=== PATIENT | female | born 1950 | race Two or more races ===

== ENCOUNTER 2022-03-18 14:17 | Emergency (ER) | payer OTHER ==
[~2022-03-18] VITALS: Ht 157.5 cm; Wt 62.0 kg
[2022-03-18 15:26] VITALS: BP 141/83
[2022-03-18] MEDS ORDERED: TETANUS-DIPTH-ACEL PERTUSSIS 0.5ML SYR Tdap IM ONE (15:30)
[2022-03-18] MEDS ORDERED: CEFD300C2 PO (16:01)
[2022-03-18] MEDS ORDERED: LIDOCAINE 2%HCL (LOCAL ANESTH.) INJ 10ml MDV IJ ONE (16:15)
== END 2022-03-18 16:48 | disposition home or self-care (01) ==
LOC: ER 14:22
DX: S91.311A Laceration without foreign body, right foot, initial encounter (principal); M19.90 Unspecified osteoarthritis, unspecified site; I10 Essential (primary) hypertension; Z90.49 Acquired absence of other specified parts of digestive tract; W26.0XXA Contact with knife, initial encounter; Y93.89 Activity, other specified; Y92.89 Other specified places as the place of occurrence of the external cause; Y99.8 Other external cause status
CPT/HCPCS: 12001; 90471; 90715

== ENCOUNTER → 2022-04-09 | Outpatient (CLI) | payer OTHER ==
[~2022-04-09] MED LIST: CEFD300C2 PO
[2022-04-09 14:26] LABS: Basophils # (auto) 0 10 ^3/uL (0-0.2); Basophils % (auto) 0.4 % (0.0-2.0); Eosinophils # (auto) 0.1 10 ^3/uL (0-0.8); Eosinophils % (auto) 2.1 % (0.0-7.0); Hematocrit 31.3 % (36.0-46.0); Hemoglobin 10.9 g/dL (12.2-16.2); Lymphocytes # (auto) 0.4 10 ^3/uL (0.4-5.4); Lymphocytes % (auto) 11.8 % (10.0-50.0); Mean Corpuscular Hemoglobin 31.4 pg (28.0-32.0); Mean Corpuscular Hgb Conc. 34.8 g/dL (32.0-36.0); Mean Corpuscular Volume 90.2 fL (80.0-100.0); Monocytes # (auto) 0.4 10 ^3/uL (0-1.3); Monocytes % (auto) 10.6 % (0.0-12.0); Neutrophils # (auto) 2.6 10 ^3/uL (1.6-8.6); Neutrophils % (auto) 75.1 % (37.0-80.0); Nucleated Red Blood Cells % 0.1 %; Red Blood Cells 3.47 10^6/uL (4.0-5.20); Red Cell Distribution Width 14.5 % (11.8-14.3); White Blood Cell 3.4 10^3/uL (4.4-10.8)
[2022-04-09 14:43] LABS: INR 1.03 (0.9-1.15)
[2022-04-09 15:24] LABS: Albumin 3.5 g/dL (3.4-5.0); Calcium 9.3 mg/dL (8.5-10.1); Potassium 4.1 mmol/L (3.5-5.1)
[2022-04-09 15:28] LABS: BUN/Creatinine Ratio 29.5; Bilirubin, Total 0.9 mg/dL (0.2-1.0); Total Protein 7.4 g/dL (6.4-8.2)
== END | disposition home or self-care (01) ==
LOC: LAB 14:07
PROVIDERS: ATTEND Internal Medicine Gastroenterology
DX: K74.60 Unspecified cirrhosis of liver (principal); K76.6 Portal hypertension
CPT/HCPCS: 36415; 80053; 82105; 85025; 85610

== ENCOUNTER → 2022-08-06 | Outpatient (CLI) | payer OTHER ==
[2022-08-06 14:32] LABS: Basophils # (auto) 0 10 ^3/uL (0-0.2); Basophils % (auto) 0.4 % (0.0-2.0); Eosinophils # (auto) 0.1 10 ^3/uL (0-0.8); Eosinophils % (auto) 2.1 % (0.0-7.0); Hemoglobin 11.5 g/dL (12.2-16.2); Lymphocytes # (auto) 0.7 10 ^3/uL (0.4-5.4); Lymphocytes % (auto) 20.8 % (10.0-50.0); Mean Corpuscular Hemoglobin 30.6 pg (28.0-32.0); Mean Corpuscular Hgb Conc. 34.7 g/dL (32.0-36.0); Monocytes # (auto) 0.4 10 ^3/uL (0-1.3); Monocytes % (auto) 11.4 % (0.0-12.0); Neutrophils # (auto) 2.3 10 ^3/uL (1.6-8.6); Neutrophils % (auto) 65.3 % (37.0-80.0); Nucleated Red Blood Cells % 0.1 %; Red Blood Cells 3.75 10^6/uL (4.0-5.20); White Blood Cell 3.5 10^3/uL (4.4-10.8)
[2022-08-06 14:49] LABS: INR 1.01 (0.9-1.15)
[2022-08-06 15:18] LABS: Calcium 9.1 mg/dL (8.5-10.1); Potassium 3.8 mmol/L (3.5-5.1)
[2022-08-06 15:24] LABS: Albumin 3.4 g/dL (3.4-5.0); Bilirubin, Total 0.8 mg/dL (0.2-1.0); Total Protein 7.4 g/dL (6.4-8.2)
== END | disposition home or self-care (01) ==
LOC: LAB 13:55
PROVIDERS: ATTEND Nurse Practitioner
DX: K74.69 Other cirrhosis of liver (principal); B19.20 Unspecified viral hepatitis C without hepatic coma
CPT/HCPCS: 36415; 80053; 82105; 85025; 85610

== ENCOUNTER → 2023-11-19 | Outpatient (CLI) | payer MEDICAID ==
[2023-11-19 08:36] LABS: Anion Gap 5 (5-15); Carbon Dioxide 27 mmol/L (20-30); Chloride 101 mmol/L (98-107); Sodium 133 mmol/L (136-145)
[2023-11-19 08:38] LABS: Calcium 9.8 mg/dL (8.7-10.4)
[2023-11-19 08:42] LABS: Glucose 86 mg/dL (74-106)
[2023-11-19 08:43] LABS: BUN/Creatinine Ratio 24.1 (10.0-20.0); Blood Urea Nitrogen 14 mg/dL (9-23)
== END | disposition home or self-care (01) ==
LOC: LAB 07:33
PROVIDERS: ATTEND Internal Medicine
DX: C22.0 Liver cell carcinoma (principal)
CPT/HCPCS: 36415; 80048

== ENCOUNTER 2023-12-18 12:03 | Inpatient (IN) | payer MEDICAID, OTHER ==
[~2023-12-18] VITALS: Ht 157.5 cm; Wt 58.3 kg
[2023-12-18] MEDS: METOCLOPRAMIDE HCL 5MG/ml INJ 2ml VIAL IV ONE (16:27)
[2023-12-18] MEDS: SODIUM CHLORIDE 0.9% 1,000 ML IV ONE (16:27)
[2023-12-18] MEDS: MORPHINE SULFATE 4 MG/ML SYR/VIAL IV ONE (16:29)
[2023-12-18 16:35] VITALS: O2SAT 95
[2023-12-18 17:25] LABS: Alanine Aminotransferase 38 U/L (7-40); Alkaline Phosphatase 153 U/L (46-116); Anion Gap 4 (5-15); Aspartate Aminotransferase 59 U/L (13-40); Blood Urea Nitrogen 11 mg/dL (9-23); Calcium 9.9 mg/dL (8.7-10.4); Carbon Dioxide 28 mmol/L (20-30); Chloride 103 mmol/L (98-107); Glucose 102 mg/dL (74-106); Lipase 35 U/L (12-53); Magnesium 1.5 mg/dL (1.6-2.6); Potassium 4.4 mmol/L (3.5-5.1); Sodium 135 mmol/L (136-145)
[2023-12-18 17:26] LABS: Bilirubin, Total 1.7 mg/dL (0.2-1.0); Total Protein 7.6 g/dL (5.7-8.2)
[2023-12-18 17:28] LABS: Basophils # (auto) 0 10 ^3/uL (0-0.2); Basophils % (auto) 0.3 % (0.0-2.0); Eosinophils # (auto) 0 10 ^3/uL (0-0.8); Eosinophils % (auto) 0.7 % (0.0-7.0); Hematocrit 33.5 % (36.0-46.0); Hemoglobin 11.7 g/dL (12.2-16.2); Lymphocytes # (auto) 0.6 10 ^3/uL (0.4-5.4); Mean Corpuscular Hemoglobin 30.3 pg (28.0-32.0); Mean Corpuscular Hgb Conc. 34.9 g/dL (32.0-36.0); Mean Corpuscular Volume 86.9 fL (80.0-100.0); Monocytes # (auto) 0.2 10 ^3/uL (0-1.3); Monocytes % (auto) 3.9 % (0.0-12.0); Neutrophils # (auto) 4.4 10 ^3/uL (1.6-8.6); Neutrophils % (auto) 83.1 % (37.0-80.0); Nucleated Red Blood Cells % 0.1 %; Platelet Count (auto) 383 10^3/uL (140-450); Red Blood Cells 3.86 10^6/uL (4.0-5.20); Red Cell Distribution Width 16.5 % (11.8-14.3); White Blood Cell 5.3 10^3/uL (4.4-10.8)
[2023-12-18 19:01] LABS: Albumin 3.6 g/dL (3.2-4.8)
[2023-12-18 19:03] LABS: Urine Bacteria None Seen /hpf (None Seen)
[2023-12-18 19:19] LABS: Urine Blood Negative /uL (Negative); Urine Clarity Clear (Clear); Urine Color Light-Yellow (Yellow); Urine Protein, UAD Negative (Negative); Urine Specific Gravity 1.009 (1.001-1.035); Urine Urobilinogen Normal (Negative); Urine WBC 1 /hpf (0 - 5)
[2023-12-18] MEDS ORDERED: ONDANSETRON HCL 4 MG/2 ML VIAL IV PRN (21:45)
[2023-12-18] MEDS ORDERED: HYDROcodone-ACET 5/325MG TAB PO PRN (21:45)
[2023-12-18] MEDS ORDERED: ACETAMINOPHEN 325 MG TAB PO PRN (21:45)
[2023-12-18] MEDS ORDERED: TEMAZEPAM 15 MG CAP PO PRN (21:45)
[2023-12-18] MEDS ORDERED: MORPHINE SULFATE INJ 2 MG/ml SYRG IV PRN (21:45)
[2023-12-18] MEDS: PANTOPRAZOLE 40 MG TAB PO ONE (21:49)
[2023-12-18] MEDS: MAGNESIUM SULFATE 1GM/100ML 100 ML IV SCH (21:53)
[2023-12-18 23:26] VITALS: BP 138/71; PULSE 67; RESP 21; TEMP 97.6; O2SAT 94
[2023-12-19] VITALS (7 sets, daily range): BP systolic 133–142; BP diastolic 66–83; PULSE 53–94; RESP 17–22; TEMP 97.6–98.1; O2SAT 94–97
[2023-12-19] MEDS ORDERED: PROP60CA34 PO (04:09)
[2023-12-19] MEDS ORDERED: APIX5TAB PO (04:09)
[2023-12-19] MEDS ORDERED: PRED10TA PO (04:09)
[2023-12-19] MEDS: PANTOPRAZOLE 40 MG TAB PO SCH (05:24)
[2023-12-19 05:57] LABS: Basophils # (auto) 0 10 ^3/uL (0-0.2); Basophils % (auto) 0.2 % (0.0-2.0); Eosinophils # (auto) 0.1 10 ^3/uL (0-0.8); Eosinophils % (auto) 3.7 % (0.0-7.0); Hematocrit 32.6 % (36.0-46.0); Hemoglobin 11.4 g/dL (12.2-16.2); Lymphocytes # (auto) 0.6 10 ^3/uL (0.4-5.4); Lymphocytes % (auto) 15.7 % (10.0-50.0); Mean Corpuscular Hemoglobin 30.4 pg (28.0-32.0); Mean Corpuscular Hgb Conc. 35.1 g/dL (32.0-36.0); Mean Corpuscular Volume 86.8 fL (80.0-100.0); Monocytes # (auto) 0.3 10 ^3/uL (0-1.3); Neutrophils # (auto) 2.6 10 ^3/uL (1.6-8.6); Neutrophils % (auto) 72.4 % (37.0-80.0); Nucleated Red Blood Cells % 0.9 %; Platelet Count (auto) 296 10^3/uL (140-450); Red Blood Cells 3.76 10^6/uL (4.0-5.20); Red Cell Distribution Width 16.4 % (11.8-14.3); White Blood Cell 3.6 10^3/uL (4.4-10.8)
[2023-12-19 06:21] LABS: Alanine Aminotransferase 30 U/L (7-40); Albumin 3.2 g/dL (3.2-4.8); Alkaline Phosphatase 137 U/L (46-116); Anion Gap 4 (5-15); Aspartate Aminotransferase 52 U/L (13-40); BUN/Creatinine Ratio 22.4 (10.0-20.0); Bilirubin, Total 1.5 mg/dL (0.2-1.0); Blood Urea Nitrogen 13 mg/dL (9-23); Calcium 9.4 mg/dL (8.7-10.4); Carbon Dioxide 28 mmol/L (20-30); Chloride 103 mmol/L (98-107); Glucose 73 mg/dL (74-106); Potassium 3.9 mmol/L (3.5-5.1); Sodium 135 mmol/L (136-145); Total Protein 6.6 g/dL (5.7-8.2)
[2023-12-19] MEDS: LISINOPRIL 20 MG TAB PO SCH (09:47)
[2023-12-19] MEDS ORDERED: PROPRANOLOL HCL 20 MG PO SCH (10:00)
[2023-12-19] MEDS: APIXABAN 5 MG TAB PO SCH (13:17)
[2023-12-19] MEDS: PROPRANOLOL HCL 20 MG PO SCH (13:18)
[2023-12-19] MEDS: metroNIDAZOLE 500 MG TAB PO ONE (13:54)
[2023-12-19] MEDS: GOLYTELY 4L KIT PO ONE (13:54)
[2023-12-19 15:41] LABS: INR 1.13 (0.9-1.15); Prothrombin Time 11.9 sec (9.3-11.8)
[2023-12-19] MEDS: CIPROFLOXACIN HCL 500 MG TAB PO SCH (21:25)
[2023-12-19] MEDS: metroNIDAZOLE 500 MG TAB PO SCH (21:25)
[2023-12-20] VITALS (9 sets, daily range): BP systolic 111–135; BP diastolic 64–86; PULSE 65–87; RESP 16–21; TEMP 97.9–98.7; O2SAT 93–100
[2023-12-20 06:07] LABS: Basophils # (auto) 0 10 ^3/uL (0-0.2); Basophils % (auto) 0.2 % (0.0-2.0); Eosinophils # (auto) 0.1 10 ^3/uL (0-0.8); Eosinophils % (auto) 3.2 % (0.0-7.0); Hematocrit 30.9 % (36.0-46.0); Hemoglobin 10.8 g/dL (12.2-16.2); Lymphocytes # (auto) 0.4 10 ^3/uL (0.4-5.4); Lymphocytes % (auto) 12.7 % (10.0-50.0); Mean Corpuscular Hemoglobin 30.6 pg (28.0-32.0); Mean Corpuscular Hgb Conc. 34.8 g/dL (32.0-36.0); Mean Corpuscular Volume 87.7 fL (80.0-100.0); Monocytes # (auto) 0.3 10 ^3/uL (0-1.3); Monocytes % (auto) 7.5 % (0.0-12.0); Neutrophils # (auto) 2.7 10 ^3/uL (1.6-8.6); Neutrophils % (auto) 76.4 % (37.0-80.0); Nucleated Red Blood Cells % 0.1 %; Platelet Count (auto) 290 10^3/uL (140-450); Red Blood Cells 3.52 10^6/uL (4.0-5.20); Red Cell Distribution Width 16.7 % (11.8-14.3); White Blood Cell 3.5 10^3/uL (4.4-10.8)
[2023-12-20] MEDS: MAGNESIUM CITRATE SOLUTION 300 ML BTL PO ONE (06:08)
[2023-12-20] MEDS: GOLYTELY 4L KIT PO ONE (06:09)
[2023-12-20 06:17] LABS: Calcium 9.6 mg/dL (8.7-10.4); Chloride 104 mmol/L (98-107); Potassium 3.5 mmol/L (3.5-5.1); Sodium 136 mmol/L (136-145)
[2023-12-20 06:18] LABS: Anion Gap 3 (5-15); Carbon Dioxide 29 mmol/L (20-30)
[2023-12-20 06:23] LABS: BUN/Creatinine Ratio 21.1 (10.0-20.0); Blood Urea Nitrogen 12 mg/dL (9-23); Glucose 76 mg/dL (74-106)
[2023-12-20] MEDS ORDERED: SODIUM CHLORIDE LOCK 10 ML ONE (08:35)
[2023-12-20] MEDS ORDERED: levoFLOXacin 500MG 100 ML IV SCH (10:00)
[2023-12-20] MEDS: MIDAZOLAM HCL 5 MG/ML-1ML VIAL ONE (15:09)
[2023-12-20] MEDS: fentaNYL CITRATE 100 MCG/2 ML VL ONE (15:09)
[2023-12-20] MEDS: diphenhdrAMINE HCL 50 MG/1 ML VL ONE (15:09)
[2023-12-21 01:00] VITALS: BP 121/57; PULSE 81; RESP 18; TEMP 97.6; O2SAT 18
[2023-12-21 05:57] LABS: Basophils # (auto) 0 10 ^3/uL (0-0.2); Basophils % (auto) 0.2 % (0.0-2.0); Eosinophils # (auto) 0.1 10 ^3/uL (0-0.8); Eosinophils % (auto) 3.2 % (0.0-7.0); Hematocrit 28.9 % (36.0-46.0); Hemoglobin 10.1 g/dL (12.2-16.2); Lymphocytes # (auto) 0.5 10 ^3/uL (0.4-5.4); Lymphocytes % (auto) 13.8 % (10.0-50.0); Mean Corpuscular Hemoglobin 30.9 pg (28.0-32.0); Mean Corpuscular Hgb Conc. 35.1 g/dL (32.0-36.0); Monocytes # (auto) 0.4 10 ^3/uL (0-1.3); Monocytes % (auto) 9.9 % (0.0-12.0); Neutrophils # (auto) 2.7 10 ^3/uL (1.6-8.6); Neutrophils % (auto) 72.9 % (37.0-80.0); Platelet Count (auto) 296 10^3/uL (140-450); Red Blood Cells 3.28 10^6/uL (4.0-5.20); Red Cell Distribution Width 16.4 % (11.8-14.3); White Blood Cell 3.7 10^3/uL (4.4-10.8)
[2023-12-21 06:23] LABS: Alanine Aminotransferase 28 U/L (7-40); Alkaline Phosphatase 126 U/L (46-116); Anion Gap 4 (5-15); Calcium 9.1 mg/dL (8.7-10.4); Carbon Dioxide 25 mmol/L (20-30); Chloride 108 mmol/L (98-107); Glucose 93 mg/dL (74-106); Potassium 3.6 mmol/L (3.5-5.1); Sodium 137 mmol/L (136-145)
[2023-12-21 06:24] LABS: Aspartate Aminotransferase 58 U/L (13-40); BUN/Creatinine Ratio 32.8 (10.0-20.0); Bilirubin, Direct 0.5 mg/dL (<0.3); Blood Urea Nitrogen 19 mg/dL (9-23)
[2023-12-21 06:25] LABS: Total Protein 6.2 g/dL (5.7-8.2)
[2023-12-21 06:29] VITALS: BP 147/79; PULSE 74; RESP 21; TEMP 98; O2SAT 97
[2023-12-21 08:59] VITALS: BP 133/68; PULSE 75; RESP 17; TEMP 98.1; O2SAT 97
[2023-12-21 12:30] VITALS: BP 118/64; PULSE 75; RESP 17; TEMP 98.2; O2SAT 98
[2023-12-21 12:56] VITALS: BP 118/64; PULSE 75; RESP 17; TEMP 98.2; O2SAT 98
[2023-12-21 16:44] VITALS: BP 150/80; PULSE 77; RESP 17; TEMP 97.8; O2SAT 98
== END 2023-12-21 18:00 | disposition home or self-care (01) | DRG 392 ==
LOC: ER 12:03 → WEST WING 21:39 → OVERFLOW 21:39 → WEST WING 23:26
PROVIDERS: ADMIT Internal Medicine; ATTEND Internal Medicine
PROC: 0DBL8ZX Excision of Transverse Colon, Via Natural or Artificial Opening Endoscopic, Diagnostic (ICD-10-PCS; 2023-12-20)
PROC: 0DBN8ZX Excision of Sigmoid Colon, Via Natural or Artificial Opening Endoscopic, Diagnostic (ICD-10-PCS; principal; 2023-12-20 15:07)
DX: K52.9 Noninfective gastroenteritis and colitis, unspecified (principal); C22.9 Malignant neoplasm of liver, not specified as primary or secondary; J47.9 Bronchiectasis, uncomplicated; E27.8 Other specified disorders of adrenal gland; E83.42 Hypomagnesemia; I10 Essential (primary) hypertension; K74.60 Unspecified cirrhosis of liver; N20.0 Calculus of kidney; K63.5 Polyp of colon; K64.8 Other hemorrhoids; Z85.05 Personal history of malignant neoplasm of liver; Z79.899 Other long term (current) drug therapy; M19.90 Unspecified osteoarthritis, unspecified site
CPT/HCPCS: 36415; 45380; 71046; 74176; 80048; 80053; 80076; 81001; 82306; 82607; 83036; 83690; 83735; 84443; 85025; 85610; 86850; 86900; 86901; 93005; 96365; 96375; G0378; J2250

== ENCOUNTER 2024-03-24 10:40 | Emergency (ER) | payer MEDICAID ==
[~2024-03-24] VITALS: Ht 157.5 cm; Wt 56.4 kg
[~2024-03-24 10:40] MED LIST changes: +APIX5TAB PO; +PRED10TA PO; +PROP60CA34 PO
[2024-03-24] MEDS ORDERED: DIPH2.5T73 PO (11:46)
--- NOTE | 2024-03-24 11:52 | ED.PDOC ---
GI ASSESSMENT HPI Comments 73 y/o female patient presents to the ER for diarrhea. Patient reports she was diagnosed with COVID yesterday and started taking Paxlovid. Patient reports that she has had about 2-3 episodes of diarrhea. Patient reports that it is causing her difficulty with sleeping at night. Patient has tried taking Imodium without relief. Chief Complaint: Diarrhea Time Seen by MD: 11:18 Primary Care Provider: CYNDI Allergies: Coded Allergies: NO KNOWN ALLERGIES (Unverified , 03/18/22) Home Meds Active Scripts Loperamide-Simethicone (Imodium Multi-Symptom Rel) Relief Tab, 2 TAB OR UD for 3 Days, #12 TAB 0 Refills Prov:CM LUGO 03/24/24 Cefdinir (Cefdinir) 300 Mg Cap, 1 CAP PO BID for 7 Days, #14 CAP Prov:MARVIN JOHNSTON MD 03/18/22 Reported Medications Prednisone (Prednisone) 10 Mg Tab, 10 MG PO, MG 12/19/23 Apixaban Base (ELIQUIS) 5 Mg Tab, 5 MG PO BID, TAB 12/19/23 Propranolol Hcl (Inderal La) 60 Mg Cap, 20 MG PO BID, CAP 12/19/23 Information Source: Patient Mode of Arrival: Ambulatory Past Medical History PAST MEDICAL HISTORY: Arthritis, Cancer, HTN, Liver Surgical History: BTL, Cholecystectomy 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 Hx Family History Family History: Reviewed,noncontributory to illness Social History Smoker: Non-Smoker Alcohol: Denies ETOH Use Drugs: Denies Drug Use Lives In: Home Constitutional: denies: chills, diaphoresis, fatigue, fever, malaise, sweats, weakness, others EENTM: denies: blurred vision, double vision, ear bleeding, ear discharge, ear drainage, ear pain, ear ringing, eye pain, eye redness, hearing loss, mouth pain, mouth swelling, nasal discharge, nose bleeding, nose congestion, nose pain, photophobia, tearing, throat pain, throat swelling, voice changes, others Respiratory: denies: cough, hemoptysis, orthopnea, SOB at rest, shortness of breath, SOB with excertion, stridor, wheezing, others Cardiovascular: denies: chest pain, dizzy spells, diaphoresis, Dyspnea on exertion, edema, irregular heart beat, left arm pain, lightheadedness, palpitations, PND, syncope, others Gastrointestinal: reports: diarrhea Genitourinary: denies: abnormal vagina bleeding, burning, dyspareunia, dysuria, flank pain, frequency, hematuria, incontinence, pain, , vagina discharge, urgency, others Neurological: denies: dizziness, fainting, headache, left sided numbness, left sided weakness, numbness, paresthesia, pre-existing deficit, right sided n umbness, right sided weakness, seizure, speech problems, tingling, tremors, weakness, others Musculoskeletal: denies: back pain, gout, joint pain, joint swelling, muscle pain, muscle stiffness, neck pain, others Integumetry: denies: bruises, change in color, change in hair/nails, dryness, laceration, lesions, lumps, rash, wounds, others Allergic/Immunocompromised: denies: Difficulty Healing, Frequent Infections, Hives, Itching, others Hematologic/Lymphatic: denies: anemia, blood clots, easy bleeding, easy bruising, swollen glands, others Endocrine: denies: excessive hunger, excessive sweating, excessive thirst, excessive urination, flushing, intolerance to cold, intolerance to heat, unexplained weight gain, unexplained weight loss, others Psychiatric: denies: anxiety, bipolar disorder, depression, hopeless, panic disorder, schizophrenia, sleepless, suicidal, others All Other Systems: Reviewed and Negative Physical Exam General Appearance: No Apparent Distress, Normal HEENT: Normal ENT Inspection, Pharynx Normal, TMs Normal Neck: Full Range of Motion, Non-Tender, Normal, Normal Inspection Respiratory: Chest Non-Tender, Lungs Clear, No Accessory Muscle Use, No Respiratory Distress, Normal Breath Sounds Cardiovascular: No Edema, No JVD, No Murmur, No Gallop, Normal Peripheral Pulses, Regular Rate/Rhythm Breast Exam: Deferred Gastrointestinal: No Organomegaly, Non Tender, No Pulsatile Mass, Normal Bowel Sounds, Soft Genitalia: Deferred Pelvic: Deferred Rectal: Deferred Extremities: No calf tenderness, Normal capillary refill, Normal inspection, Normal range of motion, Non-tender, No pedal edema Musculoskeletal : Apperance: Normal Neurologic: Alert, motor overhauler II-XII nml as Tested, No Motor Deficits, Normal Affect, Normal Mood, No Sensory Deficits Cerebellar Function: Normal Reflexes: Normal Skin: Dry, Normal Color, Warm Lymphatic: No Adenopathy Was a procedure done? Was a procedure done?: No GI differential Dx Differential Diagnosis: Food Poisoning, Other (Side effects of medication) X-Ray, Labs, Meds, VS Vital Signs Date Time Temp Pulse Resp B/P (MAP) Pulse Ox O2 Delivery O2 Flow Rate FiO2 03/24/24 12:05 87 16 98 Room Air 03/24/24 12:05 98.0 87 16 130/76 (94) 98 98.0 03/24/24 10:55 97.9 89 16 135/78 (97) 96 X-Ray, Labs, Meds, VS Comment On re-evaluation patient has symptomatic improvement. Patient advised that diarrhea is unexpected and common side effect of the Paxlovid. Patient advised to follow a brat diet Patient is stable for discharge at this time. All test results and diagnostic imaging have been interpreted. All diagnostic findings, discharge care, and education instruction provided to the patient. Follow-up with PCP in 2-3 days Patient verbalized understanding, discharge instructions and agrees to treatment plan Vital signs are stable Patient is ambulatory Patient advised of which symptoms necessitate a return visit to the emergency room. Patient to return emergency room for any new worsening symptoms. Patient is aware that the purpose of this visit is for an acute medical emergency requiring emergent stabilization. Chronic conditions, including malignancies have not been ruled out. Patient is instructed to follow up with PCP as directed for continued care and workup. If unable to arrange follow up, patient is to return to the emergency room for reassessment. Patient was given verbal and written discharge instructions and acknowledges understanding Time of 1ST Reevaluation: 11:45 Reevaluation 1ST: Unchanged Patient Education/Counseling: Diagnosis, Treatment, Prognosis Family Education/Counseling: No Family Present Departure 1 Departure Time of Disposition: 11:55 Impression: Primary Impression: Diarrhea in adult patient Disposition: 01 HOME / SELF CARE / HOMELESS Condition: Stable e-Prescriptions Loperamide-Simethicone (Imodium Multi-Symptom Rel) Relief Tab 2 TAB OR UD for 3 Days, #12 TAB 0 Refills Prov: CM LUGO BENEFITS SPECIALIST RECRUITER 03/24/24 Discharged With: Self Critical Care Note Critical Care Time?: No Stability Stability form required: No Heart Score Heart Score: Heart Score Response (Comments) Value History N/A 0 EKG N/A 0 Age N/A 0 Risk Factors N/A 0 Troponin N/A 0 Total 0 CM LUGO [facility] Mar 24, 2024 11:52
[2024-03-24 12:05] VITALS: BP 130/76; PULSE 87; RESP 16; TEMP 98; O2SAT 98
[2024-03-24] MEDS ORDERED: LOPETAB OR (13:29)
== END 2024-03-24 12:16 | disposition home or self-care (01) ==
LOC: ER 10:40
DX: R19.7 Diarrhea, unspecified (principal); I10 Essential (primary) hypertension; M19.90 Unspecified osteoarthritis, unspecified site; Z90.49 Acquired absence of other specified parts of digestive tract; Z79.01 Long term (current) use of anticoagulants; Z79.899 Other long term (current) drug therapy

== ENCOUNTER → 2024-06-10 | Outpatient (CLI) | payer MEDICAID ==
[~2024-06-10] MED LIST changes: +LOPETAB OR
[2024-06-10 11:21] LABS: Eosinophils # (auto) 0 10 ^3/uL (0-0.8); Hemoglobin 11.9 g/dL (12.2-16.2); Lymphocytes # (auto) 0.8 10 ^3/uL (0.4-5.4); Lymphocytes % (auto) 10.2 % (10.0-50.0)
[2024-06-10 11:24] LABS: Basophils # (auto) 0.1 10 ^3/uL (0-0.2); Basophils % (auto) 0.8 % (0.0-2.0); Eosinophils % (auto) 0.2 % (0.0-7.0); Mean Corpuscular Hemoglobin 30.1 pg (28.0-32.0); Mean Corpuscular Hgb Conc. 34.9 g/dL (32.0-36.0); Mean Corpuscular Volume 86.2 fL (80.0-100.0); Monocytes # (auto) 0.4 10 ^3/uL (0-1.3); Neutrophils # (auto) 6.7 10 ^3/uL (1.6-8.6); Neutrophils % (auto) 83.8 % (37.0-80.0); Platelet Count (auto) 625 10^3/uL (140-450); Red Blood Cells 3.95 10^6/uL (4.0-5.20)
[2024-06-10 12:29] LABS: Alanine Aminotransferase 30 U/L (7-40); Anion Gap 6 (5-15); BUN/Creatinine Ratio 43.2 (10.0-20.0); Blood Urea Nitrogen 19 mg/dL (9-23); Calcium 9.6 mg/dL (8.7-10.4); Carbon Dioxide 26 mmol/L (20-31); Glucose 77 mg/dL (74-106); Potassium 4.5 mmol/L (3.5-5.1)
[2024-06-10 12:30] LABS: Alkaline Phosphatase 139 U/L (46-116); Aspartate Aminotransferase 71 U/L (13-40); Bilirubin, Total 2.6 mg/dL (0.2-1.0); Chloride 92 mmol/L (98-107); Sodium 124 mmol/L (136-145); Total Protein 6.4 g/dL (5.7-8.2)
== END | disposition home or self-care (01) ==
LOC: LAB 10:51
PROVIDERS: ATTEND Internal Medicine Hematology & Oncology
DX: C22.0 Liver cell carcinoma (principal)
CPT/HCPCS: 36415; 80053; 85025

== ENCOUNTER 2024-06-16 18:07 | Emergency (ER) | payer MEDICAID ==
[~2024-06-16] VITALS: Ht 157.5 cm; Wt 51.6 kg
--- NOTE | 2024-06-16 18:54 | ED.PDOC ---
History of Present Illness HPI Comments 73 year old female presents to the ED with a chief complaint of abnormal labs onset today. Patient states she was called by her Oncologist today, was told sodium levels were low and to go to ED. Patient has no further complaints. PMHx of liver cancer, HTN, RA. Denies chest pain, shortness of breath, nausea, vomiting, diarrhea, weakness, abdominal pain, dysuria, hematuria, dizziness. No other symptoms or modifying factors present at this time. Chief Complaint: Abnormal LAB's Time Seen by MD: 18:29 Primary Care Provider: CYNDI Reviewed Notes: Medications, Allergies Allergies: Coded Allergies: NO KNOWN ALLERGIES (Unverified , 03/18/22) Home Meds Active Scripts Loperamide-Simethicone (Imodium Multi-Symptom Rel) Relief Tab, 2 TAB OR UD for 3 Days, #12 TAB 0 Refills Prov:CM LUGO 03/24/24 Cefdinir (Cefdinir) 300 Mg Cap, 1 CAP PO BID for 7 Days, #14 CAP Prov:MARVIN JOHNSTON MD 03/18/22 Reported Medications Prednisone (Prednisone) 10 Mg Tab, 10 MG PO, MG 12/19/23 Apixaban Base (ELIQUIS) 5 Mg Tab, 5 MG PO BID, TAB 12/19/23 Propranolol Hcl (Inderal La) 60 Mg Cap, 20 MG PO BID, CAP 12/19/23 Information Source: Patient Mode of Arrival: Ambulatory Severity: Moderate Timing: Hours Duration: Since onset Prehospital treatment: None Past Medical History PAST MEDICAL HISTORY: Arthritis, Cancer, HTN, Liver Surgical History: BTL, Cholecystectomy 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 COORDINATOR Hx Family History Family History: Reviewed,noncontributory to illness Social History Smoker: Non-Smoker Alcohol: Denies ETOH Use Drugs: Denies Drug Use Lives In: Home Constitutional: denies: chills, diaphoresis, fatigue, fever, malaise, sweats, weakness, others EENTM: denies: blurred vision, double vision, ear bleeding, ear discharge, ear drainage, ear pain, ear ringing, eye pain, eye redness, hearing loss, mouth pain, mouth swelling, nasal discharge, nose bleeding, nose congestion, nose pain, photophobia, tearing, throat pain, throat swelling, voice changes, others Respiratory: denies: cough, hemoptysis, orthopnea, SOB at rest, shortness of breath, SOB with excertion, stridor, wheezing, others Cardiovascular: denies: chest pain, dizzy spells, diaphoresis, Dyspnea on exertion, edema, irregular heart beat, left arm pain, lightheadedness, palpitations, PND, syncope, others Gastrointestinal: denies: abdomen distended, abdominal pain, blood streaked bowels, constipated, diarrhea, dysphagia, difficulty swallowing, hematemesis, melena, nausea, poor appetite, poor fluid intake, rectal bleeding, rectal pain, vomiting, others Genitourinary: denies: abnormal vagina bleeding, burning, dyspareunia, dysuria, flank pain, frequency, hematuria, incontinence, pain, , vagina d ischarge, urgency, others Neurological: denies: dizziness, fainting, headache, left sided numbness, left sided weakness, numbness, paresthesia, pre-existing deficit, right sided numbness, right sided weakness, seizure, speech problems, tingling, tremors, weakness, others Musculoskeletal: denies: back pain, gout, joint pain, joint swelling, muscle pain, muscle stiffness, neck pain, others Integumetry: denies: bruises, change in color, change in hair/nails, dryness, laceration, lesions, lumps, rash, wounds, others Allergic/Immunocompromised: denies: Difficulty Healing, Frequent Infections, Hives, Itching, others Hematologic/Lymphatic: denies: anemia, blood clots, easy bleeding, easy bruising, swollen glands, others Endocrine: denies: excessive hunger, excessive sweating, excessive thirst, excessive urination, flushing, intolerance to cold, intolerance to heat, unexplained weight gain, unexplained weight loss, others Psychiatric: denies: anxiety, bipolar disorder, depression, hopeless, panic disorder, schizophrenia, sleepless, suicidal, others All Other Systems: Reviewed and Negative Physical Exam General Appearance: No Apparent Distress HEENT: Other (pupils and face symmetric. moist mucous membranes) Neck: Full Range of Motion, Normal Inspection Respiratory: Lungs Clear, No Accessory Muscle Use, No Respiratory Distress, Normal Breath Sounds Cardiovascular: No Edema, No JVD, Regular Rate/Rhythm Breast Exam: Deferred Gastrointestinal: Non Tender, Soft Genitalia: Deferred Pelvic: Deferred Rectal: Deferred Extremities: Normal inspection, Normal range of motion, Non-tender, No pedal edema Neurologic: Alert (oriented x 4), Normal Affect, Normal Mood, Other (ambulatory without difficulty. no gross focal deficit) Cerebellar Function: NOT DONE Reflexes: NOT DONE Skin: Dry, Normal Color, Warm Lymphatic: NOT DONE Was a procedure done? Was a procedure done?: No Differential Dx Considerations may include: hyponatremia, other electrolyte imbalance, dehydration/hypovolemia, arrhythmia, among others X-Ray, Labs, Meds, VS Vital Signs Date Time Temp Pulse Resp B/P (MAP) Pulse Ox O2 Delivery O2 Flow Rate FiO2 06/16/24 20:10 98.2 90 17 142/81 (101) 95 98.2 06/16/24 20:10 90 17 95 Room Air 06/16/24 18:15 97.5 92 20 143/86 (105) 96 Lab Test 06/16/24 18:53 Range/Units White Blood Count 4.8 4.4-10.8 10^3/uL Red Blood Count 4.20 4.0-5.20 10^6/uL Hemoglobin 12.2 12.2-16.2 g/dL Hematocrit 36.5 36.0-46.0 % Mean Corpuscular Volume 87.0 80.0-100.0 fL Mean Corpuscular Hemoglobin 29.1 28.0-32.0 pg Mean Corpuscular Hemoglobin Concent 33.5 32.0-36.0 g/dL Red Cell Distribution Width 17.9 H 11.8-14.3 % Platelet Count 450 140-450 10^3/uL Mean Platelet Volume 6.9 6.9-10.8 fL Neutrophils (%) (Auto) 70.9 37.0-80.0 % Lymphocytes (%) (Auto) 18.7 10.0-50.0 % Monocytes (%) (Auto) 8.2 0.0-12.0 % Eosinophils (%) (Auto) 1.7 0.0-7.0 % Basophils (%) (Auto) 0.5 0.0-2.0 % Neutrophils # (Auto) 3.4 1.6-8.6 10 ^3/uL Lymphocytes # (Auto) 0.9 0.4-5.4 10 ^3/uL Monocytes # (Auto) 0.4 0-1.3 10 ^3/uL Eosinophils # (Auto) 0.1 0-0.8 10 ^3/uL Basophils # (Auto) 0 0-0.2 10 ^3/uL Nucleated Red Blood Cells 0.1 % Sodium Level 132 L 136-145 mmol/L Potassium Level 4.3 3.5-5.1 mmol/L Chloride Level 98 98-107 mmol/L Carbon Dioxide Level 30 20-31 mmol/L Anion Gap 4 L 5-15 Blood Urea Nitrogen 16 9-23 mg/dL Creatinine 0.45 L 0.550-1.02 mg/dL Glomerular Filtration Rate Calc 100 >90 mL/min BUN/Creatinine Ratio 35.6 H 10.0-20.0 Serum Glucose 122 H 74-106 mg/dL Calcium Level 9.6 8.7-10.4 mg/dL Current Medications Medications (Trade) Dose Ordered Sig/Lachelle Route Start Time Stop Time Status Last Admin Sodium Chloride 1,000 ml @ 1,000 mls/hr Q1H ONCE IV 06/16/24 18:45 06/16/24 19:44 DC 06/16/24 20:13 X-Ray, Labs, Meds, VS Comment 73 F with h/o liver ca, htn, ra, referred by oncologist for hyponatremia. pt is asymptomatic. vs remarkable for T97.5, bp 143/86 exam unremarkable rhythm strip independently interpreted by me: sinus rhythm, rate 92, no ectopy EKG CBC, BMP and UA ordered, remarkable for: pt treated with the following in ED: 2L 0.9NS IV On re-evaluation, patient remains asymptomatic with stable vitals. Hospitalization was considered, however patient is well-appearing on re- evaluation after IV fluids and now appears stable for outpatient follow-up with her oncologist. Time of 1ST Reevaluation: 18:59 Reevaluation 1ST: Unchanged Time of 2ND Reevaluation: 20:18 Reevaluation 2ND: Improved Patient Education/Counseling: Diagnosis, Treatment, Prognosis Family Education/Counseling: No Family Present Additional Information The following tests were ordered, and results were reviewed by me: CBC, UA, BMP, EKG I discussed treatment and results with medical personnel and: patient Departure 1 Departure Time of Disposition: 20:18 Impression: Primary Impression: Hyponatremia Disposition: HOME / SELF CARE / HOMELESS Condition: Stable Additional Instructions: Your sodium level was 132, which is not seriously low. Your other labs were unremarkable. We have administered treatment for your low sodium level in the ER. You do not require hospital admission. Follow-up with your primary doctor or oncologist in 1-2 days for repeat sodium level. Discharged With: Self Critical Care Note Critical Care Time?: No Stability Stability form required: No Heart Score Heart Score: Heart Score Response (Comments) Value History N/A 0 EKG N/A 0 Age N/A 0 Risk Factors N/A 0 Troponin N/A 0 Total 0 I personally scribed for JERMAINE JARVIS MD ([email or web address]) on 06/16/24 at 18:54. Electronically submitted by Janae Geronimo ([email or web address]). I personally scribed for JERMAINE JARVIS MD ([email or web address]) on 06/16/24 at 20:27. Electronically submitted by Janae Geronimo ([email or web address]). JERMAINE JARVIS MD Jun 16, 2024 18:54
[2024-06-16 19:07] LABS: Basophils # (auto) 0 10 ^3/uL (0-0.2); Eosinophils # (auto) 0.1 10 ^3/uL (0-0.8); Hematocrit 36.5 % (36.0-46.0); Hemoglobin 12.2 g/dL (12.2-16.2); Lymphocytes # (auto) 0.9 10 ^3/uL (0.4-5.4); Lymphocytes % (auto) 18.7 % (10.0-50.0); Mean Corpuscular Hgb Conc. 33.5 g/dL (32.0-36.0); Monocytes # (auto) 0.4 10 ^3/uL (0-1.3); Neutrophils # (auto) 3.4 10 ^3/uL (1.6-8.6); White Blood Cell 4.8 10^3/uL (4.4-10.8)
[2024-06-16 19:09] LABS: Basophils % (auto) 0.5 % (0.0-2.0); Eosinophils % (auto) 1.7 % (0.0-7.0); Mean Corpuscular Hemoglobin 29.1 pg (28.0-32.0); Monocytes % (auto) 8.2 % (0.0-12.0); Neutrophils % (auto) 70.9 % (37.0-80.0); Nucleated Red Blood Cells % 0.1 %; Platelet Count (auto) 450 10^3/uL (140-450); Red Cell Distribution Width 17.9 % (11.8-14.3)
[2024-06-16 19:18] LABS: Potassium 4.3 mmol/L (3.5-5.1)
[2024-06-16 19:19] LABS: Anion Gap 4 (5-15); Carbon Dioxide 30 mmol/L (20-31)
[2024-06-16 19:20] LABS: Calcium 9.6 mg/dL (8.7-10.4)
[2024-06-16 19:25] LABS: BUN/Creatinine Ratio 35.6 (10.0-20.0); Blood Urea Nitrogen 16 mg/dL (9-23)
[2024-06-16 19:30] LABS: Chloride 98 mmol/L (98-107); Glucose 122 mg/dL (74-106); Sodium 132 mmol/L (136-145)
[2024-06-16] MEDS: SODIUM CHLORIDE 0.9% 1,000 ML IV ONE ×2 (20:13→20:49)
[2024-06-16 21:27] VITALS: BP 137/77; PULSE 84; RESP 18; TEMP 98; O2SAT 97
== END 2024-06-16 21:32 | disposition home or self-care (01) ==
LOC: ER 18:07
DX: E87.1 Hypo-osmolality and hyponatremia (principal); R79.9 Abnormal finding of blood chemistry, unspecified; I10 Essential (primary) hypertension; M19.90 Unspecified osteoarthritis, unspecified site; Z79.899 Other long term (current) drug therapy; Z85.05 Personal history of malignant neoplasm of liver; Z90.49 Acquired absence of other specified parts of digestive tract; Z98.51 Tubal ligation status
CPT/HCPCS: 36415; 80048; 85025; 96360; 96361; 99283; J7030

== ENCOUNTER → 2024-06-16 | Outpatient (CLI) | payer MEDICAID ==
[2024-06-16 09:28] LABS: Urine Bacteria None Seen /hpf (None Seen)
[2024-06-16 10:04] LABS: Urine Blood Negative /uL (Negative); Urine Clarity Clear (Clear); Urine Color Yellow (Yellow); Urine Protein, UAD TRACE (Negative); Urine Specific Gravity 1.014 (1.001-1.035); Urine Squamous Epithelial Cell FEW /hpf (<5); Urine Urobilinogen 8 mg/dL (Negative); Urine WBC 7 /HPF (0-5); Urine pH 7.5 (5.0-9.0)
[2024-06-16 10:05] LABS: Basophils # (auto) 0 10 ^3/uL (0-0.2); Basophils % (auto) 0.5 % (0.0-2.0); Eosinophils # (auto) 0.1 10 ^3/uL (0-0.8); Eosinophils % (auto) 1.5 % (0.0-7.0); Hematocrit 37.7 % (36.0-46.0); Hemoglobin 12.9 g/dL (12.2-16.2); Lymphocytes # (auto) 0.8 10 ^3/uL (0.4-5.4); Lymphocytes % (auto) 20.4 % (10.0-50.0); Mean Corpuscular Hemoglobin 29.7 pg (28.0-32.0); Mean Corpuscular Hgb Conc. 34.1 g/dL (32.0-36.0); Mean Corpuscular Volume 86.9 fL (80.0-100.0); Monocytes # (auto) 0.3 10 ^3/uL (0-1.3); Monocytes % (auto) 7.6 % (0.0-12.0); Neutrophils # (auto) 2.9 10 ^3/uL (1.6-8.6); Nucleated Red Blood Cells % 0.1 %; Platelet Count (auto) 489 10^3/uL (140-450); Red Blood Cells 4.33 10^6/uL (4.0-5.20); Red Cell Distribution Width 17.8 % (11.8-14.3); White Blood Cell 4.1 10^3/uL (4.4-10.8)
[2024-06-16 11:53] LABS: Alanine Aminotransferase 29 U/L (7-40); Anion Gap 5 (5-15); BUN/Creatinine Ratio 36.6 (10.0-20.0); Blood Urea Nitrogen 15 mg/dL (9-23); Calcium 9.7 mg/dL (8.7-10.4); Carbon Dioxide 29 mmol/L (20-31); Chloride 99 mmol/L (98-107); Glucose 88 mg/dL (74-106); Potassium 4.7 mmol/L (3.5-5.1)
[2024-06-16 11:55] LABS: Total Protein 6.6 g/dL (5.7-8.2)
[2024-06-16 12:03] LABS: Aspartate Aminotransferase 64 U/L (13-40); Bilirubin, Total 1.7 mg/dL (0.2-1.0); Sodium 133 mmol/L (136-145)
[2024-06-16 12:44] LABS: Alkaline Phosphatase 135 U/L (46-116)
[2024-06-17 12:16] LABS: Triglycerides 91 mg/dL (< 150)
[2024-06-17 12:18] LABS: Cholesterol 131 mg/dL (< 200)
[2024-06-17 12:24] LABS: HDL Cholesterol 21 mg/dL (40-59); LDL Cholesterol 106 mg/dL (< 100)
== END | disposition home or self-care (01) ==
LOC: LAB 09:05
PROVIDERS: ATTEND Internal Medicine
DX: Z00.01 Encounter for general adult medical examination with abnormal findings (principal); Z51.81 Encounter for therapeutic drug level monitoring; C78.00 Secondary malignant neoplasm of unspecified lung; C22.0 Liver cell carcinoma; D64.9 Anemia, unspecified; N20.9 Urinary calculus, unspecified; R32 Unspecified urinary incontinence; Z79.899 Other long term (current) drug therapy
CPT/HCPCS: 36415; 80053; 80061; 81001; 83036; 84439; 84443; 85025

== ENCOUNTER → 2024-07-07 | Outpatient (CLI) | payer MEDICAID ==
[2024-07-07 09:18] LABS: Basophils # (auto) 0 10 ^3/uL (0-0.2); Basophils % (auto) 0.4 % (0.0-2.0); Eosinophils # (auto) 0.1 10 ^3/uL (0-0.8); Hemoglobin 11.8 g/dL (12.2-16.2); Lymphocytes % (auto) 14.2 % (10.0-50.0); Monocytes # (auto) 0.3 10 ^3/uL (0-1.3); Nucleated Red Blood Cells % 0.1 %
[2024-07-07 09:21] LABS: Lymphocytes # (auto) 0.9 10 ^3/uL (0.4-5.4); Mean Corpuscular Hemoglobin 30.2 pg (28.0-32.0); Mean Corpuscular Hgb Conc. 34.8 g/dL (32.0-36.0); Mean Corpuscular Volume 86.9 fL (80.0-100.0); Monocytes % (auto) 5.4 % (0.0-12.0); Neutrophils # (auto) 4.8 10 ^3/uL (1.6-8.6); Platelet Count (auto) 546 10^3/uL (140-450); Red Blood Cells 3.91 10^6/uL (4.0-5.20); Red Cell Distribution Width 16.4 % (11.8-14.3); White Blood Cell 6.1 10^3/uL (4.4-10.8)
[2024-07-07 09:49] LABS: Albumin 3.2 g/dL (3.2-4.8); Anion Gap 6 (5-15); BUN/Creatinine Ratio 32.7 (10.0-20.0); Blood Urea Nitrogen 16 mg/dL (9-23); Calcium 9.6 mg/dL (8.7-10.4); Carbon Dioxide 28 mmol/L (20-31); Chloride 100 mmol/L (98-107); Glucose 91 mg/dL (74-106); Potassium 4.1 mmol/L (3.5-5.1); Total Protein 7.2 g/dL (5.7-8.2)
[2024-07-07 09:54] LABS: Alanine Aminotransferase 41 U/L (7-40); Aspartate Aminotransferase 69 U/L (13-40); Bilirubin, Total 1.5 mg/dL (0.2-1.0); Sodium 134 mmol/L (136-145)
[2024-07-07 10:13] LABS: Alkaline Phosphatase 183 U/L (46-116)
== END | disposition home or self-care (01) ==
LOC: LAB 08:55
PROVIDERS: ATTEND Internal Medicine Hematology & Oncology
DX: C22.0 Liver cell carcinoma (principal)
CPT/HCPCS: 36415; 80053; 85025

== ENCOUNTER → 2024-07-27 | Outpatient (CLI) | payer MEDICAID ==
[2024-07-27 09:43] LABS: Alanine Aminotransferase 35 U/L (7-40); Alkaline Phosphatase 123 U/L (46-116); Anion Gap 5 (5-15); Aspartate Aminotransferase 56 U/L (13-40); BUN/Creatinine Ratio 38.6 (10.0-20.0); Blood Urea Nitrogen 17 mg/dL (9-23); Calcium 9.4 mg/dL (8.7-10.4); Carbon Dioxide 31 mmol/L (20-31); Chloride 95 mmol/L (98-107); Glucose 98 mg/dL (74-106); Potassium 4.3 mmol/L (3.5-5.1); Sodium 131 mmol/L (136-145); Total Protein 6.6 g/dL (5.7-8.2)
== END | disposition home or self-care (01) ==
LOC: LAB 08:47
PROVIDERS: ATTEND Internal Medicine Hematology & Oncology
DX: C22.0 Liver cell carcinoma (principal)
CPT/HCPCS: 36415; 80053

== ENCOUNTER 2024-08-12 17:22 | Inpatient (IN) | payer MEDICAID ==
[~2024-08-12] VITALS: Ht 167.6 cm; Wt 64.3 kg
[~2024-08-12 17:22] MED LIST changes: +AMLO1TAB22 PO; +DICY10CA PO; +ERY05OO RIGHTEYE; +ETAN50IN10 SC; +LEVO25TA6 PO; +LIDO1PAD55 TOP; +LISI40TA16 PO; +OLAN2.5T38 PO; +PANT40T PO; +PROP1TAB53 PO; +TRAM50TA2 PO
--- NOTE | 2024-08-12 17:52 | ED.PDOC ---
History of Present Illness HPI Comments HPI: Poor Historian. 74 year old female brought in by daughter presents to the ED with chief complaint of generalized weakness. Daughter reports that the patient has been presenting with increase generalized weakness with associated fatigue and inability to lift herself since Saturday. Daughter relays that normally patient is able to take her medication on her, however, she is unsure if the patient has been since symptom onset. Daughter states that the patient is currently on oral chemotherapy for stage 4 metastatic liver cancer. Daughter notes patient has had decreased PO food and liquid intake since symptom onset. Patient is normally not on O2 at home. Daughter denies any chest pain, SOB, dizziness, fever, chills, cough, or congestion. Initial Vitals: Temp: 98.3F BP: 130/88 HR: 133 RR: 18 O2 Sat: 90% on RA Past Medical History: Hypertension, Stage 4 metastatic liver cancer, arthritis Past Surgical History: BTL, cholecystectomy Medications include: Apixaban, amlodipine, oral chemotherapy, prednisone, propranolol, Allergies: NKDA REVIEW OF SYSTEMS: CONSTITUTIONAL: Denies acute: fever, diaphoresis, chills, HEAD: Denies acute: headache, photophobia Eyes: Denies acute: Double vision, vision loss, eye pain, eye discharge. EARS: Denies acute: tinnitus, hearing loss, ear discharge, ear pain, THROAT: Denies acute: sore throat, swelling, difficulty swallowing , pain with swallowing, change in voice. NECK: Denies acute: neck pain, neck swelling, stiff neck. HEART: Denies acute : chest pain, palpitations, LUNGS: Denies acute: SOB, wheezing, cough, hemoptysis ABDOMEN: Denies acute: abdominal pain, Nausea, Vomiting, diarrhea, melena , hematemesis, hematochezia SKIN: Denies acute: rash, redness, lesions, itchiness. EXTREMITIES: Denies acute: calf pain, numbness, tingling, weakness, denies pain in extremity. Denies acute: Low back pain. Neuro: Denies acute: focal neurological deficit, motor or sensory focal neurological deficit, seizure like activity, confusion, dizziness, change in mental status, loss of bowel or bladder function, cauda equina like symptoms. : Denies acute: dysuria, hematuria, flank pain, increase in urinary frequency. PSYCH: Denies acute: hallucination, suicidal ideation, homicidal ideation. FEMALE: Denies acute: abnormal vaginal bleeding, foul odor, unusual discharge. PHYSICAL EXAM: General: ----mild----acute distress, awake and alert. Head: normocephalic, atraumatic. Neck: supple, trachea is midline, no swelling. Throat: Normal phonation. Eyes:, no erythema, no purulent discharge, no proptosis, no icterus. Heart: regular tachycardia, no significant murmur appreciated. Lungs: no apparent respiratory distress, Able to speak in full sentences. No wheezing, no rhonchi, no crackles. No stridors Clear to auscultation bilaterally. Abdomen: non tender to palpation, noticeably distended, soft, no guarding, no rebound, + bowel sounds. Neuro: Awake, Alert, oriented to name, self, situation, follows commands GCS=15. Speech is normal. Skin: no petechia, no purpura, no cyanosis, non-pale, not jaundice. Lower extremities: --trace bilateral - Pitting edema no deformity, no focal swelling, no calf TTP. Makes eye contact. moves all four extremities. Face: no apparent facial droop. ED COURSE: Time Seen by MD: 17:50 Primary Care Provider: CYNDI Reviewed Notes: Nurses Notes, Allergies Allergies: Coded Allergies: NO KNOWN ALLERGIES (Unverified , 03/18/22) Home Meds Reported Medications Pantoprazole Sodium Sesquihydr (Pantoprazole Sodium) 40 Mg Tab, 1 TAB PO DAILY for 90 Days, #90 08/13/24 Erythromycin (Erythromycin) 5 Mg/Gm Oin, 0.5 RIGHTEYE Q6H for 5 Days, #1 08/13/24 Etanercept (Enbrel Sureclick) 50 Mg/Ml Inj, 1 SYR SC QWEEKLY for 28 Days, #4 08/13/24 Dicyclomine Hcl (BENTYL CAPSULE) 10 Mg Cp, 1 CAP PO TID PRN for 20 Days, #60 08/13/24 Lidocaine (Lidocaine) 5 % Pad, 1 PATCH TOP DAILY for 30 Days, #30 08/13/24 Olanzapine (OLANZAPINE) 2.5 Mg Tab, 1 TAB PO HS for 30 Days, #30 08/13/24 Levothyroxine Sodium (Levothyroxine Sodium) 25 Mcg Tab, 1 TAB PO QAM for 30 D ays, #30 08/13/24 Tramadol Hcl (Tramadol Hcl) 50 Mg Tab, 1 TAB PO TID for 30 Days, #90 08/13/24 Propranolol HCl (Propranolol Hydrochloride) 20 Mg Tab, 1 TAB PO BID for 90 Days, #180 08/13/24 Lisinopril (Lisinopril) 40 Mg Tab, 1 TAB PO BID for 90 Days, #180 08/13/24 Amlodipine Besylate (Amlodipine Besylate) 5 Mg Tab, 1 TAB PO DAILY for 90 Days, #90 08/13/24 Prednisone (Prednisone) 10 Mg Tab, 1 TAB PO DAILY for 90 Days, #90 12/19/23 Apixaban Base (ELIQUIS) 5 Mg Tab, 1 TAB PO BID for 90 Days, #180 12/19/23 Discontinued Reported Medications Propranolol Hcl (Inderal La) 60 Mg Cap, 20 MG PO BID, CAP 12/19/23 Information Source: Patient, Relative (Child) Mode of Arrival: Wheelchair Past Medical History PAST MEDICAL HISTORY: Arthritis, Cancer (stage 4 liver cancer), HTN Surgical History: BTL, Cholecystectomy L[employer]ER [employer] W[employer] P[employer]ER History: Denies all LUG BRE[employer]ER [employer] W[employer] P[employer]ER Hx Family History Family History: Reviewed,noncontributory to illness, Unknown Social History Smoker: Non-Smoker Alcohol: Denies ETOH Use Drugs: Denies Drug Use Lives In: Home Was a procedure done? Was a procedure done?: No Differential Dx Considerations may include: ncludes but not limited to thyroid disease, encephalopathy, electrolyte abnormality, sepsis, infection, intracranial pathology, drug adverse effects, arrhythmia, kidney insufficiency, ACS, CVA, malignancy, anemia X-Ray, Labs, Meds, VS Vital Signs Date Time Temp Pulse Resp B/P (MAP) Pulse Ox O2 Delivery O2 Flow Rate FiO2 08/12/24 22:00 97.4 123 20 121/79 (93) 99 97.4 08/12/24 20:20 99 99 Nasal Cannula* 2 28 08/12/24 20:00 97.4 128 20 130/77 (94) 98 97.4 08/12/24 20:00 132 08/12/24 18:49 97.9 135 100 148/62 (90) 100 97.9 08/12/24 17:55 135 08/12/24 17:54 98.3 133 18 130/88 (102) 90 98.3 Lab Test 08/12/24 23:49 08/12/24 21:05 08/12/24 19:38 08/12/24 18:58 Range/Units White Blood Count 5.1 # 4.4-10.8 10^3/uL Red Blood Count 2.72 L 4.0-5.20 10^6/uL Hemoglobin 8.7 #L 12.2-16.2 g/dL Hematocrit 24.8 #L 36.0-46.0 % Mean Corpuscular Volume 91.1 80.0-100.0 fL Mean Corpuscular Hemoglobin 31.8 28.0-32.0 pg Mean Corpuscular Hemoglobin Concent 34.9 32.0-36.0 g/dL Red Cell Distribution Width 18.6 H 11.8-14.3 % Platelet Count 168 140-450 10^3/uL Mean Platelet Volume 7.1 6.9-10.8 fL Neutrophils (%) (Auto) 85.3 H 37.0-80.0 % Lymphocytes (%) (Auto) 4.1 L 10.0-50.0 % Monocytes (%) (Auto) 10.5 0.0-12.0 % Eosinophils (%) (Auto) 0.0 0.0-7.0 % Basophils (%) (Auto) 0.1 0.0-2.0 % Neutrophils # (Auto) 4.4 1.6-8.6 10 ^3/uL Lymphocytes # (Auto) 0.2 L 0.4-5.4 10 ^3/uL Monocytes # (Auto) 0.5 0-1.3 10 ^3/uL Eosinophils # (Auto) 0 0-0.8 10 ^3/uL Basophils # (Auto) 0 0-0.2 10 ^3/uL Nucleated Red Blood Cells 0.0 % Prothrombin Time 14.1 H 9.3-11.8 sec Prothrombin Time INR 1.37 H 0.9-1.15 Activated Partial Thromboplast Time 43.5 H 24.5-34.5 SEC Sodium Level 130 L 136-145 mmol/L Potassium Level 4.8 3.5-5.1 mmol/L Chloride Level 100 98-107 mmol/L Carbon Dioxide Level 25 20-31 mmol/L Anion Gap 5 5-15 Blood Urea Nitrogen 39 H 9-23 mg/dL Creatinine 0.48 L 0.550-1.02 mg/dL Glomerular Filtration Rate Calc 98 >90 mL/min BUN/Creatinine Ratio 81.3 H 10.0-20.0 Serum Glucose 106 74-106 mg/dL Lactic Acid Level 2.6 *H 2.7 *H 0.4-2.0 mmol/L Calcium Level 8.5 L 8.7-10.4 mg/dL Total Bilirubin 2.9 H 0.2-1.0 mg/dL Aspartate Amino Transferase (AST) 853 H 13-40 U/L Alanine Aminotransferase (ALT) 390 H 7-40 U/L Alkaline Phosphatase 110 46-116 U/L Total Protein 5.4 L 5.7-8.2 g/dL Albumin 2.6 L 3.2-4.8 g/dL Thyroid Stimulating Hormone (TSH) 10.36 H 0.55-4.78 uIU/mL Troponin I High Sensitivity 6 6 </=34 ng/L Urine Color Dark-yellow Yellow Urine Clarity Clear Clear Urine pH 5.5 5.0-9.0 Urine Specific [place] 1.017 1.001-1.035 Urine Protein 1+ H Negative Urine Ketones Negative Negative Urine Blood Negative Negative /uL Urine Nitrite Negative Negative Urine Bilirubin 1+ H Negative Urine Urobilinogen 6 Negative mg/dL Urine Leukocyte Esterase Negative Negative /uL Urine RBC <1 0 - 4 /hpf Urine Microscopic WBC 1 0-5 /HPF Urine Squamous Epithelial Cells None seen <5 /hpf Urine Bacteria None seen None Seen /hpf Urine Mucus Few None Seen Urine Glucose Normal Normal mg/dL Test 08/12/24 18:36 08/12/24 18:34 08/12/24 17:41 Range/Units White Blood Count 8.1 4.4-10.8 10^3/uL Red Blood Count 3.76 L 4.0-5.20 10^6/uL Hemoglobin 11.6 L 12.2-16.2 g/dL Hematocrit 34.0 L 36.0-46.0 % Mean Corpuscular Volume 90.3 80.0-100.0 fL Mean Corpuscular Hemoglobin 30.7 28.0-32.0 pg Mean Corpuscular Hemoglobin Concent 34.0 32.0-36.0 g/dL Red Cell Distribution Width 18.4 H 11.8-14.3 % Platelet Count 289 140-450 10^3/uL Mean Platelet Volume 7.5 6.9-10.8 fL Neutrophils (%) (Auto) 86.2 H 37.0-80.0 % Lymphocytes (%) (Auto) 4.6 L 10.0-50.0 % Monocytes (%) (Auto) 9.1 0.0-12.0 % Eosinophils (%) (Auto) 0.0 0.0-7.0 % Basophils (%) (Auto) 0.1 0.0-2.0 % Neutrophils # (Auto) 6.9 1.6-8.6 10 ^3/uL Lymphocytes # (Auto) 0.4 0.4-5.4 10 ^3/uL Monocytes # (Auto) 0.7 0-1.3 10 ^3/uL Eosinophils # (Auto) 0 0-0.8 10 ^3/uL Basophils # (Auto) 0 0-0.2 10 ^3/uL Nucleated Red Blood Cells 0.1 % Sodium Level 127 L 136-145 mmol/L Potassium Level 5.1 3.5-5.1 mmol/L Chloride Level 92 L 98-107 mmol/L Carbon Dioxide Level 27 20-31 mmol/L Anion Gap 8 5-15 Blood Urea Nitrogen 46 H 9-23 mg/dL Creatinine 0.62 0.550-1.02 mg/dL Glomerular Filtration Rate Calc 92 >90 mL/min BUN/Creatinine Ratio 74.2 H 10.0-20.0 Serum Glucose 133 H 74-106 mg/dL Lactic Acid Level 3.8 *H 0.4-2.0 mmol/L Calcium Level 9.0 8.7-10.4 mg/dL Magnesium Level 1.8 1.6-2.6 mg/dL Total Bilirubin 3.9 H 0.2-1.0 mg/dL Aspartate Amino Transferase (AST) 1355 H 13-40 U/L Alanine Aminotransferase (ALT) 547 H 7-40 U/L Alkaline Phosphatase 160 H 46-116 U/L Ammonia 35 H 11-32 umol/L Troponin I High Sensitivity 5 </=34 ng/L Total Protein 5.9 5.7-8.2 g/dL Albumin 2.5 L 3.2-4.8 g/dL Lipase 24 12-53 U/L Influenza Type A Antigen Negative Negative Influenza Type B Antigen Negative Negative SARS-CoV-2 Antigen (Rapid) Negative NEGATIVE POC Glucose 146 H 70-106 mg/dl Microbiology Date/Time Source Procedure Growth Status 08/12/24 18:36 Blood Blood Culture - Preliminary NO GROWTH AFTER 24 HOURS OF INCUBATION. Resulted 08/12/24 18:00 Blood Blood Culture - Preliminary NO GROWTH AFTER 24 HOURS OF INCUBATION. Resulted [place] [id number] Ph: [phone] DIAGNOSTIC IMAGING Diagnostic Imaging Report : [id number] Signed PATIENT: JOHANNA HAYWARD ACCT: [id number] UNIT: [id number] : 1950 LOC: ER ROOM / BED: / AGE / SEX: 74 / F ADM STATUS: REG ER SERVICE 1749 ORDERING PHYSICIAN: SUJEY BARRIOS DO PROCEDURE(s): ABPL - CT AB PEL WO CON-NO ORAL OR IV REASON: weak, tachy, hypoxic ORDER NUMBER(s): [id number], ACCESSION NUMBER(s): [id number] EXAM: CT Abdomen and Pelvis Without Intravenous Contrast CLINICAL INDICATION: weak, tachy, hypoxic TECHNIQUE: Axial computed tomography images of the abdomen and pelvis without intravenous contrast. This CT exam was performed using one or more of the following dose reduction techniques: automated exposure control, adjustment of the mA and/or kV according to patient size, and/or use of iterative reconstruction technique. CONTRAST: COMPARISON: CT CT AB PEL WO CON-NO ORAL OR IV on DOS: 12/18/23 FINDINGS: ARTIFACTS: Motion artifact. LUNG BASES: Partially visualized pulmonary nodules of the lung bases concerning for metastasis. No consolidation. ABDOMEN: LIVER: Hepatomegaly with fatty infiltration and hepatic surface irregularity. This is likely cirrhosis. Underlying mass can not be clearly appreciated without IV contrast. Clinical correlation is recommended. GALLBLADDER AND BILE DUCTS: Gallbladder is surgically absent. No ductal dilation. PANCREAS: Unremarkable. No ductal dilation. SPLEEN: Unremarkable. No splenomegaly. ADRENALS: Unremarkable. No mass. KIDNEYS AND URETERS: Punctate right nephrolithiasis without hydronephrosis. STOMACH AND BOWEL: Fecal retention in the colon consistent with constipation. No obstruction. No mucosal thickening. PELVIS: APPENDIX: No findings to suggest acute appendicitis. BLADDER: Unremarkable. No stones. REPRODUCTIVE: Unremarkable as visualized. ABDOMEN and PELVIS: INTRAPERITONEAL SPACE: Unremarkable. No free air. No significant fluid collection. BONES/JOINTS: Previously described metastatic lesion in the left femoral head is not clearly demonstrated. Degenerative disc disease throughout the lumbar spine. Degenerative facet arthropathy throughout the lumbar spine, most prominent in the lower lumbar spine. No acute fracture. No dislocation. SOFT TISSUES: Unremarkable. VASCULATURE: Scattered calcified atherosclerotic disease of aorta. No abdominal aortic aneurysm. LYMPH NODES: Unremarkable. No enlarged lymph nodes. OTHER FINDINGS: . . IMPRESSION: 1. Hepatomegaly with fatty infiltration and hepatic surface irregularity. This is likely cirrhosis. Underlying mass can not be clearly appreciated without IV contrast. Clinical correlation is recommended. 2. Partially visualized pulmonary nodules of the lung bases concerning for meta stasis. 3. Punctate right nephrolithiasis without hydronephrosis. 4. Fecal retention in the colon consistent with constipation. 5. Degenerative changes lumbar spine as described. ATED BY: HARSHAD LUIS MD DICTATED DATE/TIME: 08/12/241841 SIGNED BY: HARSHAD LUIS MD SIGNED DATE/TIME: 08/12/241841 CC: [place] [id number] Ph: [phone] DIAGNOSTIC IMAGING Diagnostic Imaging Report : [id number] Signed PATIENT: JOHANNA HAYWARD ACCT: [id number] UNIT: [id number] : 1950 LOC: ER ROOM / BED: / AGE / SEX: 74 / F ADM STATUS: REG ER SERVICE 48 ORDERING PHYSICIAN: SUJEY BARRIOS DO PROCEDURE(s): CXRP - CHEST PORTABLE REASON: weak, tachy, hypoxic ORDER NUMBER(s): [id number], ACCESSION NUMBER(s): [id number] EXAM: XY CHEST PORTABLE TECHNIQUE: Single frontal chest radiograph CLINICAL HISTORY: weak, tachy, hypoxic COMPARISON: None Findings/Impression: Frontal chest radiograph demonstrates no acute osseous or superficial soft tissue abnormalities. The trachea is midline. The cardiac silhouette and mediastinum are within normal limits. Low lung volumes with bronchovascular crowding. Right basilar atelectasis. No pneumothorax, pleural effusions, or consolidations. ATED BY: TERESA KING DO DICTATED DATE/TIME: 08/12/241826 SIGNED BY: TERESA KING DO SIGNED DATE/TIME: 08/12/241826 CC: [place] [id number] Ph: [phone] DIAGNOSTIC IMAGING Diagnostic Imaging Report : [id number] Signed PATIENT: JOHANNA HAYWARD ACCT: [id number] UNIT: [id number] : 1950 LOC: ER ROOM / BED: / AGE / SEX: 74 / F ADM STATUS: REG ER SERVICE 48 ORDERING PHYSICIAN: SUJEY BARRIOS DO PROCEDURE(s): HWOCT - HEAD WITHOUT CONTRAST REASON: weak, tachy, hypoxic, h/o CA ORDER NUMBER(s): [id number], ACCESSION NUMBER(s): [id number] EXAM: CT Head Without Intravenous Contrast CLINICAL INDICATION: weak, tachy, hypoxic, h/o CA TECHNIQUE: Axial computed tomography images of the head/brain without intravenous contrast. This CT exam was performed using one or more of the following dose reduction techniques: automated exposure control, adjustment of the mA and/or kV according to patient size, and/or use of iterative reconstruction technique. CONTRAST: COMPARISON: None FINDINGS: BRAIN AND EXTRA-AXIAL SPACES: Areas of decreased attenuation in the deep cerebral white matter are consistent with small vessel ischemic/degenerative changes. The cerebral and cerebellar sulci are prominent consistent with brain atrophy. No acute intracranial hemorrhage, midline shift or mass effect. If symptoms persist, further evaluation with MRI is recommended. BONES/JOINTS: Unremarkable. No acute fracture. SOFT TISSUES: Unremarkable. SINUSES: Mucosal thickening of the maxillary and sphenoid sinuses. MASTOID AIR CELLS: Unremarkable as visualized. No mastoid effusion. OTHER FINDINGS: . . IMPRESSION: 1. Small vessel ischemic/degenerative changes. 2. Generalized brain atrophy. 3. No acute intracranial hemorrhage, midline shift or mass effect. If symptoms persist, further evaluation with MRI is recommended. ATED BY: HARSHAD LUIS MD DICTATED DATE/TIME: 08/12/241826 SIGNED BY: HARSHAD LUIS MD SIGNED DATE/TIME: 08/12/241826 CC: Time of 1ST Reevaluation: 18:20 Reevaluation 1ST: Unchanged Time of 2ND Reevaluation: 18:55 (All labs are still pending) Time of 3RD Reevaluation: 01:29 (Repeat CMP shows improvement. Repeat CBC shows symptomatic anemia. Shaw catheter was placed and patient is making urine.) Reevaluation 3RD: Improved Patient Education/Counseling: Diagnosis, Treatment Family Education/Counseling: Diagnosis, Treatment Comments Sepsis protocol initiated including weight based volume resuscitation per sepsis protocol.. Fluids were initiated. Antibiotics initiated. Patient states compliance with all her medications including Eliquis. She took all her medicine today. PE is part of the differential diagnosis but patient is on Eliquis already. Patient presented with the above HPI.----generalized weakness--workup was initiated. patient was found with the above mentioned diagnosis. the following medications were ordered: please refer to order lists of meds and tests obtained by myself Dr. Barrios. Patient ED course and VS have been stabilized. Patient has been reassessed in the ED and remained in a stable condition. Pertinent incidental findings were discussed with the patient and/or family. Patient/family voices understanding and is agreeable with plan. Patient has been observed in the ED adequate length of time to insure improvement/stability. Escalation of care considered: Consideration of escalation to observation or admission Patient was ADMITTED to the medicine team for further evaluation and treatment of their presentation. All the reports of any imaging studies that were ordered by myself were reviewed by myself. Departure 1 Departure Time of Disposition: 19:45 Impression: Primary Impression: Generalized weakness Additional Impressions: Sepsis Tachycardia Metastatic disease Hyponatremia Hypoalbuminemia Elevated LFTs Symptomatic anemia Disposition: ADMITTED INPATIENT Admit to: Tele Condition: Guarded Discharged With: Self Critical Care Note Critical Care Time?: Yes (1 hr-critical care time only) Heart Score Heart Score: Heart Score Response (Comments) Value History Slightly Suspicious 0 EKG Normal 0 Age >65 2 Risk Factors >3 or Hx ASHD 2 Troponin Normal limit 0 Total 4 I personally scribed for SUJEY BARRIOS DO ([email or web address]) on 08/12/24 at 17:52. Electronically submitted by Darshan Reyes ([email or web address]). I personally scribed for SUJEY BARRIOS DO ([email or web address]) on 08/12/24 at 19:12. Electronically submitted by Luis E Mariscal ([email or web address]). I personally scribed for SUJEY BARRIOS DO ([email or web address]) on 08/12/24 at 20:24. Electronically submitted by Luis E Mariscal ([email or web address]). SUJEY BARRIOS DO Aug 12, 2024 17:52
--- NOTE | 2024-08-12 17:56 | ECG ---
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
--- NOTE | 2024-08-12 18:29 | DVH ---
EXAM: CT Head Without Intravenous Contrast CLINICAL INDICATION: weak, tachy, hypoxic, h/o CA TECHNIQUE: Axial computed tomography images of the head/brain without intravenous contrast. This CT exam was performed using one or more of the following dose reduction techniques: automated exposure control, adjustment of the mA and/or kV according to patient size, and/or use of iterative reconstru ction technique. CONTRAST: COMPARISON: None FINDINGS: BRAIN AND EXTRA-AXIAL SPACES: Areas of decreased attenuation in the deep cerebral white matter are consistent with small vessel ischemic/degenerative changes. The cerebral and cerebellar sulci are pr ominent consistent with brain atrophy. No acute intracranial hemorrhage, midline shift or mass effec t. If symptoms persist, further evaluation with MRI is recommended. BONES/JOINTS: Unremarkable. No acute fracture. SOFT TISSUES: Unremarkable. SINUSES: Mucosal thickening of the maxillary and sphenoid sinuses. MASTOID AIR CELLS: Unremarkable as visualized. No mastoid effusion. OTHER FINDINGS: . . IMPRESSION: 1. Small vessel ischemic/degenerative changes. 2. Generalized brain atrophy. 3. No acute intracranial hemorrhage, midline shift or mass effect. If symptoms persist, further eval uation with MRI is recommended.
--- NOTE | 2024-08-12 18:29 | DVH ---
EXAM: XY CHEST PORTABLE TECHNIQUE: Single frontal chest radiograph CLINICAL HISTORY: weak, tachy, hypoxic COMPARISON: None Findings/Impression: Frontal chest radiograph demonstrates no acute osseous or superficial soft tissue abnormalities. The trachea is midline. The cardiac silhouette and mediastinum are within normal limits. Low lung volumes with bronchovascular crowding. Right basilar atelectasis. No pneumothorax, pleural effusions, or consolidations.
--- NOTE | 2024-08-12 18:44 | DVH ---
EXAM: CT Abdomen and Pelvis Without Intravenous Contrast CLINICAL INDICATION: weak, tachy, hypoxic TECHNIQUE: Axial computed tomography images of the abdomen and pelvis without intravenous contrast. This CT exam was performed using one or more of the following dose reduction techniques: automated exposure control, adjustment of the mA and/or kV according to patient size, and/or use of iterative r econstruction technique. CONTRAST: COMPARISON: CT CT AB PEL WO CON-NO ORAL OR IV on DOS: 12/18/23 FINDINGS: ARTIFACTS: Motion artifact. LUNG BASES: Partially visualized pulmonary nodules of the lung bases concerning for metastasis. No consolidation. ABDOMEN: LIVER: Hepatomegaly with fatty infiltration and hepatic surface irregularity. This is likely cirrho sis. Underlying mass can not be clearly appreciated without IV contrast. Clinical correlation is re commended. GALLBLADDER AND BILE DUCTS: Gallbladder is surgically absent. No ductal dilation. PANCREAS: Unremarkable. No ductal dilation. SPLEEN: Unremarkable. No splenomegaly. ADRENALS: Unremarkable. No mass. KIDNEYS AND URETERS: Punctate right nephrolithiasis without hydronephrosis. STOMACH AND BOWEL: Fecal retention in the colon consistent with constipation. No obstruction. No mucosal thickening. PELVIS: APPENDIX: No findings to suggest acute appendicitis. BLADDER: Unremarkable. No stones. REPRODUCTIVE: Unremarkable as visualized. ABDOMEN and PELVIS: INTRAPERITONEAL SPACE: Unremarkable. No free air. No significant fluid collection. BONES/JOINTS: Previously described metastatic lesion in the left femoral head is not clearly demons trated. Degenerative disc disease throughout the lumbar spine. Degenerative facet arthropathy throu ghout the lumbar spine, most prominent in the lower lumbar spine. No acute fracture. No dislocation . SOFT TISSUES: Unremarkable. VASCULATURE: Scattered calcified atherosclerotic disease of aorta. No abdominal aortic aneurysm. LYMPH NODES: Unremarkable. No enlarged lymph nodes. OTHER FINDINGS: . . IMPRESSION: 1. Hepatomegaly with fatty infiltration and hepatic surface irregularity. This is likely cirrhosis. Underlying mass can not be clearly appreciated without IV contrast. Clinical correlation is recomme nded. 2. Partially visualized pulmonary nodules of the lung bases concerning for metastasis. 3. Punctate right nephrolithiasis without hydronephrosis. 4. Fecal retention in the colon consistent with constipation. 5. Degenerative changes lumbar spine as described.
[2024-08-12 19:25] LABS: Basophils # (auto) 0 10 ^3/uL (0-0.2); Basophils % (auto) 0.1 % (0.0-2.0); Eosinophils # (auto) 0 10 ^3/uL (0-0.8); Hemoglobin 11.6 g/dL (12.2-16.2); Lymphocytes # (auto) 0.4 10 ^3/uL (0.4-5.4); Lymphocytes % (auto) 4.6 % (10.0-50.0); Mean Corpuscular Hemoglobin 30.7 pg (28.0-32.0); Mean Corpuscular Volume 90.3 fL (80.0-100.0); Monocytes # (auto) 0.7 10 ^3/uL (0-1.3); Monocytes % (auto) 9.1 % (0.0-12.0); Neutrophils # (auto) 6.9 10 ^3/uL (1.6-8.6); Neutrophils % (auto) 86.2 % (37.0-80.0); Nucleated Red Blood Cells % 0.1 %; Platelet Count (auto) 289 10^3/uL (140-450); Red Blood Cells 3.76 10^6/uL (4.0-5.20); Red Cell Distribution Width 18.4 % (11.8-14.3); White Blood Cell 8.1 10^3/uL (4.4-10.8)
[2024-08-12 19:31] LABS: COVID19 ANTIGEN SOFIA FIA NEGATIVE (NEGATIVE)
[2024-08-12 19:32] LABS: Rapid Influenza A Negative (Negative); Rapid Influenza B Negative (Negative)
[2024-08-12 19:47] LABS: Anion Gap 8 (5-15); BUN/Creatinine Ratio 74.2 (10.0-20.0); Carbon Dioxide 27 mmol/L (20-31); Lipase 24 U/L (12-53); Magnesium 1.8 mg/dL (1.6-2.6); Potassium 5.1 mmol/L (3.5-5.1); Total Protein 5.9 g/dL (5.7-8.2)
[2024-08-12 19:55] LABS: Urine Bacteria None Seen /hpf (None Seen)
[2024-08-12 19:59] LABS: Lactic Acid w/Reflex 3.8 mmol/L (0.4-2.0)
[2024-08-12 20:02] LABS: Alanine Aminotransferase 547 U/L (7-40); Albumin 2.5 g/dL (3.2-4.8); Alkaline Phosphatase 160 U/L (46-116); Aspartate Aminotransferase 1355 U/L (13-40); Bilirubin, Total 3.9 mg/dL (0.2-1.0); Blood Urea Nitrogen 46 mg/dL (9-23); Chloride 92 mmol/L (98-107); Glucose 133 mg/dL (74-106); Sodium 127 mmol/L (136-145)
[2024-08-12 20:18] LABS: Urine Blood Negative /uL (Negative); Urine Clarity Clear (Clear); Urine Color Dark-Yellow (Yellow); Urine Mucus FEW (None Seen); Urine Protein, UAD 1+ (Negative); Urine Specific Gravity 1.017 (1.001-1.035); Urine Squamous Epithelial Cell None Seen /hpf (<5); Urine Urobilinogen 6 mg/dL (Negative); Urine WBC 1 /HPF (0-5); Urine pH 5.5 (5.0-9.0)
[2024-08-12 20:20] VITALS: PULSE 99; O2SAT 99
[2024-08-12] MEDS: cefTRIAXone 1GM/50ML D5W 50 ML IV ONE (20:23)
[2024-08-12] MEDS: SODIUM CHLORIDE 0.9% IV ONE (20:26)
[2024-08-12] MEDS: SODIUM CHLORIDE 0.9% 1,000 ML IV ONE (20:27)
[2024-08-12] MEDS: ALBUMIN 25% 100 ML IV ONE (21:32)
[2024-08-13] VITALS (7 sets, daily range): BP systolic 122–152; BP diastolic 70–85; PULSE 98–132; RESP 16–20; TEMP 97.3–98.5; O2SAT 96–100
[2024-08-13 00:10] LABS: Basophils # (auto) 0 10 ^3/uL (0-0.2); Basophils % (auto) 0.1 % (0.0-2.0); Eosinophils # (auto) 0 10 ^3/uL (0-0.8); Hematocrit 24.8 % (36.0-46.0); Hemoglobin 8.7 g/dL (12.2-16.2); Lymphocytes # (auto) 0.2 10 ^3/uL (0.4-5.4); Lymphocytes % (auto) 4.1 % (10.0-50.0); Mean Corpuscular Hemoglobin 31.8 pg (28.0-32.0); Mean Corpuscular Hgb Conc. 34.9 g/dL (32.0-36.0); Mean Corpuscular Volume 91.1 fL (80.0-100.0); Monocytes # (auto) 0.5 10 ^3/uL (0-1.3); Monocytes % (auto) 10.5 % (0.0-12.0); Neutrophils # (auto) 4.4 10 ^3/uL (1.6-8.6); Neutrophils % (auto) 85.3 % (37.0-80.0); Platelet Count (auto) 168 10^3/uL (140-450); Red Blood Cells 2.72 10^6/uL (4.0-5.20); Red Cell Distribution Width 18.6 % (11.8-14.3); White Blood Cell 5.1 10^3/uL (4.4-10.8)
[2024-08-13] MEDS ORDERED: MORPHINE SULFATE INJ 2 MG/ml SYRG IV PRN (00:15)
[2024-08-13] MEDS ORDERED: NITROGLYCERIN 0.4 MG SL TAB SL PRN (00:15)
[2024-08-13 00:23] LABS: Alkaline Phosphatase 110 U/L (46-116); Anion Gap 5 (5-15); BUN/Creatinine Ratio 81.3 (10.0-20.0); Carbon Dioxide 25 mmol/L (20-31); Chloride 100 mmol/L (98-107); Glucose 106 mg/dL (74-106); Potassium 4.8 mmol/L (3.5-5.1)
[2024-08-13 00:24] LABS: Alanine Aminotransferase 390 U/L (7-40); Albumin 2.6 g/dL (3.2-4.8); Aspartate Aminotransferase 853 U/L (13-40); Bilirubin, Total 2.9 mg/dL (0.2-1.0); Blood Urea Nitrogen 39 mg/dL (9-23); Calcium 8.5 mg/dL (8.7-10.4); Sodium 130 mmol/L (136-145); Total Protein 5.4 g/dL (5.7-8.2)
[2024-08-13 00:28] LABS: Lactic Acid w/Reflex 2.6 mmol/L (0.4-2.0)
[2024-08-13 01:03] LABS: INR 1.37 (0.9-1.15); Partial Thromboplastin Time 43.5 SEC (24.5-34.5); Prothrombin Time 14.1 sec (9.3-11.8)
[2024-08-13] MEDS ORDERED: LEVOTHYROXINE SODIUM 25 MCG TAB PO SCH ×2 (01:30→06:00)
[2024-08-13] MEDS: traMADol HCL 50 MG TAB PO PRN (02:41)
--- NOTE | 2024-08-13 04:46 | DVHHP2 ---
History of Present Illness Reason for Visit: Generalized weakness History of Present Illness 74-year-old female presents for evaluation of generalized weakness. Patient's family opted to bring patient in for evaluation due to decreased oral intake for the past three days. They have noted patient becoming progressively weaker. She has a history of stage IV hepatic carcinoma currently undergoing oral chemotherapy seen at [place]. Patient denies any abdominal pain. She states having left knee pain. No cardiac or respiratory symptoms. Past Medical History Hypertension, hypothyroid, liver cancer Past Surgical History Cholecystectomy, BTL Family History Noncontributory Smoke: No ALCOHOL: none Drugs: None Lives: with Family Review of Systems Review of Systems Review of systems are currently negative otherwise addressed in HPI. Allergies: Coded Allergies: NO KNOWN ALLERGIES (Unverified , 03/18/22) Medications Current Medications Medications Dose Ordered Sig/Lachelle Route Start Time Stop Time Status Last Admin Dose Admin Ceftriaxone Sodium 50 ml @ 100 mls/hr DAILY@09 IV 08/13/24 09:00 Lactulose 30 ml DAILY PO 08/13/24 10:00 Tramadol HCl 50 mg Q6HP PRN PO 08/13/24 00:15 08/13/24 02:41 50 MG Ondansetron HCl 4 mg Q4HP PRN IV 08/13/24 00:15 Nitroglycerin 0.4 mg Q5MINP PRN SL 08/13/24 00:15 Morphine Sulfate 2 mg Q30M PRN IV 08/13/24 00:15 Apixaban 5 mg BID PO 08/13/24 10:00 Levothyroxine Sodium 50 mcg QAM@0600 PO 08/13/24 06:00 Exam Vital Signs Vital Signs Date Time Temp Pulse Resp B/P (MAP) Pulse Ox O2 Delivery O2 Flow Rate FiO2 08/13/24 02:00 97.8 125 18 148/76 (100) 99 97.8 08/12/24 20:20 Nasal Cannula* 2 28 Exam Gen: 74-year-old female in mild distress Skin: Warm, dry, normal color and texture, no rash. HEENT: Normocephalic atraumatic, mucous membranes moist and pink. Neck: Cervical and supraclavicular nodes normal without enlargement, trachea is midline, thyroid gland is normal without masses. Pulmonary: Clear to auscultation and percussion bilaterally. Cardiac: Regular rate and rhythm. No murmur Abdomen: Soft, nontender, nondistended, bowel sounds present all 4 quadrants, no guarding, no rigidity, no organomegaly. Extremities: No cyanosis, clubbing, no edema Neuro: Cranial nerves II through XII grossly intact, normal affect and speech, no focal motor deficits. Labs/Xrays ORDERING PHYSICIAN: SUJEY BARRIOS DO PROCEDURE(s): ABPL - CT AB PEL WO CON-NO ORAL OR IV REASON: weak, tachy, hypoxic ORDER NUMBER(s): [id number], ACCESSION NUMBER(s): [id number] EXAM: CT Abdomen and Pelvis Without Intravenous Contrast CLINICAL INDICATION: weak, tachy, hypoxic TECHNIQUE: Axial computed tomography images of the abdomen and pelvis without intravenous contrast. This CT exam was performed using one or more of the following dose reduction techniques: automated exposure control, adjustment of the mA and/or kV according to patient size, and/or use of iterative reconstruction technique. CONTRAST: COMPARISON: CT CT AB PEL WO CON-NO ORAL OR IV on DOS: 12/18/23 FINDINGS: ARTIFACTS: Motion artifact. LUNG BASES: Partially visualized pulmonary nodules of the lung bases concerning for metastasis. No consolidation. ABDOMEN: LIVER: Hepatomegaly with fatty infiltration and hepatic surface irregularity. This is likely cirrhosis. Underlying mass can not be clearly appreciated without IV contrast. Clinical correlation is recommended. GALLBLADDER AND BILE DUCTS: Gallbladder is surgically absent. No ductal dilation. PANCREAS: Unremarkable. No ductal dilation. SPLEEN: Unremarkable. No splenomegaly. ADRENALS: Unremarkable. No mass. KIDNEYS AND URETERS: Punctate right nephrolithiasis without hydronephrosis. STOMACH AND BOWEL: Fecal retention in the colon consistent with constipation. No obstruction. No mucosal thickening. PELVIS: APPENDIX: No findings to suggest acute appendicitis. BLADDER: Unremarkable. No stones. REPRODUCTIVE: Unremarkable as visualized. ABDOMEN and PELVIS: INTRAPERITONEAL SPACE: Unremarkable. No free air. No significant fluid collection. BONES/JOINTS: Previously described metastatic lesion in the left femoral head is not clearly demonstrated. Degenerative disc disease throughout the lumbar spine. Degenerative facet arthropathy throughout the lumbar spine, most prominent in the lower lumbar spine. No acute fracture. No dislocation. SOFT TISSUES: Unremarkable. VASCULATURE: Scattered calcified atherosclerotic disease of aorta. No abdominal aortic aneurysm. LYMPH NODES: Unremarkable. No enlarged lymph nodes. OTHER FINDINGS: . . IMPRESSION: 1. Hepatomegaly with fatty infiltration and hepatic surface irregularity. This is likely cirrhosis. Underlying mass can not be clearly appreciated without IV contrast. Clinical correlation is recommended. 2. Partially visualized pulmonary nodules of the lung bases concerning for m etastasis. 3. Punctate right nephrolithiasis without hydronephrosis. 4. Fecal retention in the colon consistent with constipation. 5. Degenerative changes lumbar spine as described. RING PHYSICIAN: SUJEY BARRIOS DO PROCEDURE(s): HWOCT - HEAD WITHOUT CONTRAST REASON: weak, tachy, hypoxic, h/o CA ORDER NUMBER(s): [id number], ACCESSION NUMBER(s): [id number] EXAM: CT Head Without Intravenous Contrast CLINICAL INDICATION: weak, tachy, hypoxic, h/o CA TECHNIQUE: Axial computed tomography images of the head/brain without intravenous contrast. This CT exam was performed using one or more of the following dose reduction techniques: automated exposure control, adjustment of the mA and/or kV according to patient size, and/or use of iterative reconstruction technique. CONTRAST: COMPARISON: None FINDINGS: BRAIN AND EXTRA-AXIAL SPACES: Areas of decreased attenuation in the deep cerebral white matter are consistent with small vessel ischemic/degenerative changes. The cerebral and cerebellar sulci are prominent consistent with brain atrophy. No acute intracranial hemorrhage, midline shift or mass effect. If symptoms persist, further evaluation with MRI is recommended. BONES/JOINTS: Unremarkable. No acute fracture. SOFT TISSUES: Unremarkable. SINUSES: Mucosal thickening of the maxillary and sphenoid sinuses. MASTOID AIR CELLS: Unremarkable as visualized. No mastoid effusion. OTHER FINDINGS: . . IMPRESSION: 1. Small vessel ischemic/degenerative changes. 2. Generalized brain atrophy. 3. No acute intracranial hemorrhage, midline shift or mass effect. If symptoms persist, further evaluation with MRI is recommended. Labs Test 08/13/24 01:40 08/12/24 23:49 08/12/24 21:05 08/12/24 18:58 Range/Units Lactic Acid Level 2.7 *H 0.4-2.0 mmol/L White Blood Count 5.1 # 4.4-10.8 10^3/uL Red Blood Count 2.72 L 4.0-5.20 10^6/uL Hemoglobin 8.7 #L 12.2-16.2 g/dL Hematocrit 24.8 #L 36.0-46.0 % Mean Corpuscular Volume 91.1 80.0-100.0 fL Mean Corpuscular Hemoglobin 31.8 28.0-32.0 pg Mean Corpuscular Hemoglobin Concent 34.9 32.0-36.0 g/dL Red Cell Distribution Width 18.6 H 11.8-14.3 % Platelet Count 168 140-450 10^3/uL Mean Platelet Volume 7.1 6.9-10.8 fL Neutrophils (%) (Auto) 85.3 H 37.0-80.0 % Lymphocytes (%) (Auto) 4.1 L 10.0-50.0 % Monocytes (%) (Auto) 10.5 0.0-12.0 % Eosinophils (%) (Auto) 0.0 0.0-7.0 % Basophils (%) (Auto) 0.1 0.0-2.0 % Neutrophils # (Auto) 4.4 1.6-8.6 10 ^3/uL Lymphocytes # (Auto) 0.2 L 0.4-5.4 10 ^3/uL Monocytes # (Auto) 0.5 0-1.3 10 ^3/uL Eosinophils # (Auto) 0 0-0.8 10 ^3/uL Basophils # (Auto) 0 0-0.2 10 ^3/uL Nucleated Red Blood Cells 0.0 % Prothrombin Time 14.1 H 9.3-11.8 sec Prothrombin Time INR 1.37 H 0.9-1.15 Activated Partial Thromboplast Time 43.5 H 24.5-34.5 SEC Sodium Level 130 L 136-145 mmol/L Potassium Level 4.8 3.5-5.1 mmol/L Chloride Level 100 98-107 mmol/L Carbon Dioxide Level 25 20-31 mmol/L Anion Gap 5 5-15 Blood Urea Nitrogen 39 H 9-23 mg/dL Creatinine 0.48 L 0.550-1.02 mg/dL Glomerular Filtration Rate Calc 98 >90 mL/min BUN/Creatinine Ratio 81.3 H 10.0-20.0 Serum Glucose 106 74-106 mg/dL Calcium Level 8.5 L 8.7-10.4 mg/dL Total Bilirubin 2.9 H 0.2-1.0 mg/dL Aspartate Amino Transferase (AST) 853 H 13-40 U/L Alanine Aminotransferase (ALT) 390 H 7-40 U/L Alkaline Phosphatase 110 46-116 U/L Total Protein 5.4 L 5.7-8.2 g/dL Albumin 2.6 L 3.2-4.8 g/dL Thyroid Stimulating Hormone (TSH) 10.36 H 0.55-4.78 uIU/mL Troponin I High Sensitivity 6 </=34 ng/L Urine Color Dark-yellow Yellow Urine Clarity Clear Clear Urine pH 5.5 5.0-9.0 Urine Specific [place] 1.017 1.001-1.035 Urine Protein 1+ H Negative Urine Ketones Negative Negative Urine Blood Negative Negative /uL Urine Nitrite Negative Negative Urine Bilirubin 1+ H Negative Urine Urobilinogen 6 Negative mg/dL Urine Leukocyte Esterase Negative Negative /uL Urine RBC <1 0 - 4 /hpf Urine Microscopic WBC 1 0-5 /HPF Urine Squamous Epithelial Cells None seen <5 /hpf Urine Bacteria None seen None Seen /hpf Urine Mucus Few None Seen Urine Glucose Normal Normal mg/dL Test 08/12/24 18:36 08/12/24 18:34 08/12/24 17:41 Range/Units Magnesium Level 1.8 1.6-2.6 mg/dL Ammonia 35 H 11-32 umol/L Lipase 24 12-53 U/L Influenza Type A Antigen Negative Negative Influenza Type B Antigen Negative Negative SARS-CoV-2 Antigen (Rapid) Negative NEGATIVE POC Glucose 146 H 70-106 mg/dl Assessment/Plan Assessment/Plan Assessment Metabolic encephalopathy Hyperammonemia Transaminitis, secondary to liver carcinoma Possible early sepsis Secondary coagulopathy Metastatic disease Plan Admit the [facility] to [facility] to the hospitalist Kari Maintenance IV fluids Resume home medications Continue treatment per orders. Plan discussed with: Patient My Orders Orders - RIP PRUETT AGACNP Procedure Category Date Status Time Admit ADMIT 08/12/24 Transmitted 23:59 Ceftriaxone 1gm/50ml PHA 08/13/24 In Process D5w (Rocephin) 09:00 Lactulose Oral PHA 08/13/24 In Process 10:00 Hepatic Diet DIET 08/13/24 Transmitted (50gmpro,2gmna) Breakfast Tramadol Hcl (Ultram) PHA 08/13/24 In Process 00:15 Admit ADMIT 08/13/24 Transmitted 00:12 Ondansetron Hcl PHA 08/13/24 In Process (Zofran) 00:15 Condition: Fair JENNIFER 08/13/24 In Process 00:12 Bedrest With Bathroom JENNIFER 08/13/24 In Process Privileg 00:12 Nitroglycerin PHA 08/13/24 In Process Sublingual (Ntrostat 00:15 Morphine Sulfate PHA 08/13/24 In Process Injection 00:15 Stat Ekg For Chest JENNIFER 08/13/24 In Process Pain 00:12 Notify Md Of Changes [facility] 08/13/24 In Process From Base 00:12 Doper For JENNIFER 08/13/24 In Process 24 Hours 00:12 Emergency Dysrhythmia [facility] 08/13/24 In Process Protocol 00:12 Rhythm Strips Once [facility] 08/13/24 In Process Every Shift 00:12 Oxygen By Nasal RT 08/13/24 Transmitted Cannula 00:12 Apixaban (Eliquis) PHA 08/13/24 In Process 10:00 Thyroid Panel LAB 08/13/24 In Process 01:16 Levothyroxine Tablet PHA 08/13/24 In Process (Synthroid Tablet) 06:00 NS PHA 08/13/24 Verified 04:45 Date of Service: Aug 12, 2024 Billing Provider: RIP PRUETT Common Visit Codes: [id number] INP/OBS CARE (HIGH) RIP PRUETT Aug 13, 2024 04:46
[2024-08-13] MEDS: LEVOTHYROXINE SODIUM 25 MCG TAB PO SCH (07:01)
[2024-08-13] MEDS: SODIUM CHLORIDE 0.9% 500 ML IV ONE (07:01)
[2024-08-13] MEDS: cefTRIAXone 1GM/50ML D5W 50 ML IV SCH (09:14)
[2024-08-13] MEDS: APIXABAN 5 MG TAB PO SCH (09:14)
[2024-08-13] MEDS: LACTULOSE 20Gm/30ML SOLN PO SCH (09:14)
--- NOTE | 2024-08-13 12:09 | DVHPN2 ---
Subjective Patient reports having cough, generalized weakness Reviewed: Care Plan, H&P, Labs, Medications Changes from previous H/P or p: No Changes General: Per HPI Objective Vitals Vital Signs Date Time Temp Pulse Resp B/P (MAP) Pulse Ox O2 Delivery O2 Flow Rate FiO2 08/13/24 09:28 97.4 122 17 152/75 (100) 100 97.4 08/13/24 06:18 Nasal Cannula* 4 36 Intake/Output Intake and Output 08/13/24 07:00 Intake Total 2290 ml Balance 2290 ml Intake IV Total 2290 ml General Appearance: Alert, Oriented X3, Cooperative, mild distress HEENT: Atraumatic, PERRLA Cardiovascular: Normal S1, Normal S2, Other (Sinus tachycardia) Abdomen: Normal bowel sounds, Other (Distended abdomen,? Ascites) Musculoskeletal: Normal sensory function, Normal motor function Neuro: Normal gait, Normal speech Skin: Dry, Intact Psych/Mental Status: Mental status NL, Mood NL Medications Current Medications Medications Dose Ordered Sig/Lachelle Route Start Time Stop Time Status Last Admin Dose Admin Ceftriaxone Sodium 50 ml @ 100 mls/hr DAILY@09 IV 08/13/24 09:00 08/13/24 09:14 100 MLS/HR Lactulose 30 ml DAILY PO 08/13/24 10:00 08/13/24 09:14 30 ML Tramadol HCl 50 mg Q6HP PRN PO 08/13/24 00:15 08/13/24 02:41 50 MG Ondansetron HCl 4 mg Q4HP PRN IV 08/13/24 00:15 Nitroglycerin 0.4 mg Q5MINP PRN SL 08/13/24 00:15 Morphine Sulfate 2 mg Q30M PRN IV 08/13/24 00:15 Apixaban 5 mg BID PO 08/13/24 10:00 08/13/24 09:14 5 MG Levothyroxine Sodium 75 mcg QAM@0600 PO 08/14/24 06:00 UNV Propranolol HCl 20 mg BID PO 08/13/24 22:00 UNV Laboratory Results Laboratory Tests 08/12/24 23:49 Chemistry Test 08/12/24 18:36 08/12/24 23:49 Albumin 2.5 g/dL (3.2-4.8) L 2.6 g/dL (3.2-4.8) L Calcium Level 9.0 mg/dL (8.7-10.4) 8.5 mg/dL (8.7-10.4) L Magnesium Level 1.8 mg/dL (1.6-2.6) Total Protein 5.9 g/dL (5.7-8.2) 5.4 g/dL (5.7-8.2) L Coagulation Test 08/12/24 23:49 Prothrombin Time 14.1 sec (9.3-11.8) H Prothrombin Time INR 1.37 (0.9-1.15) H Activated Partial Thromboplast Time 43.5 SEC (24.5-34.5) H Lipid panel Test 08/12/24 18:36 Lipase 24 U/L (12-53) LFT Test 08/12/24 18:36 08/12/24 23:49 Alanine Aminotransferase (ALT) 547 U/L (7-40) H 390 U/L (7-40) H Alkaline Phosphatase 160 U/L (46-116) H 110 U/L (46-116) Aspartate Amino Transferase (AST) 1355 U/L (13-40) H 853 U/L (13-40) H Total Bilirubin 3.9 mg/dL (0.2-1.0) H 2.9 mg/dL (0.2-1.0) H HgA1c, TSH Test 08/12/24 23:49 Thyroid Stimulating Hormone (TSH) 10.36 uIU/mL (0.55-4.78) H Urinalysis Test 08/12/24 18:58 Urine Color Dark-yellow (Yellow) Urine Clarity Clear (Clear) Urine pH 5.5 (5.0-9.0) Urine Specific [place] 1.017 (1.001-1.035) Urine Protein 1+ (Negative) H Urine Ketones Negative (Negative) Urine Blood Negative /uL (Negative) Urine Nitrite Negative (Negative) Urine Bilirubin 1+ (Negative) H Urine Urobilinogen 6 mg/dL (Negative) Urine Leukocyte Esterase Negative /uL (Negative) Urine RBC <1 /hpf (0 - 4) Urine Microscopic WBC 1 /HPF (0-5) Urine Squamous Epithelial Cells None seen /hpf (<5) Urine Bacteria None seen /hpf (None Seen) Urine Mucus Few (None Seen) Urine Glucose Normal mg/dL (Normal) Labs and/or images reviewed: Labs reviewed by me, Image(s) reviewed by me Assessment/Plan Assessment/Plan Impression: -acute on chronic hypoxic respiratory failure -hepatic carcinoma with chemotherapy -constipation -atelectasis -hypothyroidism -primary hypertension -dehydration with azotemia -probable community-acquired pneumonia Gram-positive/Gram-negative etiology Plan: -continue IV hydration -lactulose, add MiraLax p.r.n. -increase levothyroxine -incentive spirometer -continue Rocephin, add azithromycin -restart propranolol -repeat labs in a.m. Total time spent with patient discussing and formulating plan of care: 35 minutes. This medical document was created using an electronic medical record system with [employer] dictation system. Although this document has been carefully reviewed, there may still be some phonetic and typographical errors. These areas are purely typographical due to imperfections of the software programs, and do not reflect any compromise in the patient's medical care. Plan discussed with: Patient, Other (RN) My Orders Orders - TAY HUYNH NP Procedure Category Date Status Time Levothyroxine Tablet PHA 08/14/24 Logged (Synthroid Tablet) 06:00 Propranolol Hcl PHA 08/13/24 Logged Tablet (Inderal 22:00 Complete Blood Count LAB 08/14/24 Verified 04:00 Comprehensive LAB 08/14/24 Verified Metabolic Panel 04:00 Date of Service: Aug 13, 2024 Billing Provider: TAY HUYNH NP Common Visit Codes: [id number] INP/OBS CARE(HIGH) TAY HUYNH NP Aug 13, 2024 12:09
[2024-08-13] MEDS: AZITHROMYCIN 500MG/ 250ML 250 ML IV SCH (13:56)
[2024-08-13] MEDS: PROPRANOLOL HCL 20 MG TAB PO SCH (22:01)
[2024-08-14] VITALS (8 sets, daily range): BP systolic 108–126; BP diastolic 53–66; PULSE 87–103; RESP 16–18; TEMP 97.3–98; O2SAT 97–100
[2024-08-14] MEDS: LEVOTHYROXINE SODIUM 25 MCG TAB PO SCH (06:24)
[2024-08-14 06:28] LABS: Basophils # (auto) 0 10 ^3/uL (0-0.2); Basophils % (auto) 0.2 % (0.0-2.0); Eosinophils # (auto) 0 10 ^3/uL (0-0.8); Eosinophils % (auto) 0.1 % (0.0-7.0); Hematocrit 27.3 % (36.0-46.0); Hemoglobin 9.5 g/dL (12.2-16.2); Lymphocytes # (auto) 0.2 10 ^3/uL (0.4-5.4); Lymphocytes % (auto) 4.5 % (10.0-50.0); Mean Corpuscular Hemoglobin 31.7 pg (28.0-32.0); Mean Corpuscular Hgb Conc. 34.7 g/dL (32.0-36.0); Mean Corpuscular Volume 91.5 fL (80.0-100.0); Monocytes # (auto) 0.4 10 ^3/uL (0-1.3); Monocytes % (auto) 10.4 % (0.0-12.0); Neutrophils # (auto) 3.6 10 ^3/uL (1.6-8.6); Neutrophils % (auto) 84.8 % (37.0-80.0); Nucleated Red Blood Cells % 0.1 %; Platelet Count (auto) 186 10^3/uL (140-450); Red Blood Cells 2.98 10^6/uL (4.0-5.20); Red Cell Distribution Width 18.7 % (11.8-14.3); White Blood Cell 4.3 10^3/uL (4.4-10.8)
[2024-08-14 06:55] LABS: Anion Gap 6 (5-15); BUN/Creatinine Ratio 82.6 (10.0-20.0); Calcium 9.7 mg/dL (8.7-10.4); Carbon Dioxide 23 mmol/L (20-31); Chloride 98 mmol/L (98-107); Glucose 76 mg/dL (74-106)
[2024-08-14 07:02] LABS: Alanine Aminotransferase 291 U/L (7-40); Albumin 2.6 g/dL (3.2-4.8); Alkaline Phosphatase 123 U/L (46-116); Aspartate Aminotransferase 347 U/L (13-40); Bilirubin, Total 3.5 mg/dL (0.2-1.0); Blood Urea Nitrogen 38 mg/dL (9-23); Potassium 5.3 mmol/L (3.5-5.1); Sodium 127 mmol/L (136-145); Total Protein 5.6 g/dL (5.7-8.2)
[2024-08-14 08:07] LABS: Free Thyroxine Index 1.7 (1.2-4.9); Thyroxine (T4) 4.6 ug/dL (4.5-12.0)
[2024-08-14 12:04] LABS: Hepatitis B Surface Antigen Negative (Negative)
[2024-08-14 12:06] LABS: Hepatitis C Antibody Reactive (Negative)
--- NOTE | 2024-08-14 12:41 | DVHPN2 ---
Subjective Patient reports having cough, generalized weakness Reviewed: Care Plan, H&P, Labs, Medications Changes from previous H/P or p: No Changes General: Per HPI Objective Vitals Vital Signs Date Time Temp Pulse Resp B/P (MAP) Pulse Ox O2 Delivery O2 Flow Rate FiO2 08/14/24 09:00 97.9 87 16 125/62 (83) 97 97.9 08/13/24 20:00 Nasal Cannula* 4 36 Intake/Output Intake and Output 08/14/24 07:00 Intake Total 750 ml Output Total 700 ml Balance 50 ml Intake Oral 450 ml IV Total 300 ml Output Urine Total 700 ml # Bowel Movements 1 General Appearance: Alert, Oriented X3, Cooperative, mild distress HEENT: Atraumatic, PERRLA Cardiovascular: Normal S1, Normal S2, Other (Sinus tachycardia) Abdomen: Normal bowel sounds, Other (Distended abdomen,? Ascites) Musculoskeletal: Normal sensory function, Normal motor function Neuro: Normal gait, Normal speech Skin: Dry, Intact Psych/Mental Status: Mental status NL, Mood NL Medications Current Medications Medications Dose Ordered Sig/Lachelle Route Start Time Stop Time Status Last Admin Dose Admin Ceftriaxone Sodium 50 ml @ 100 mls/hr DAILY@09 IV 08/13/24 09:00 08/14/24 08:24 100 MLS/HR Lactulose 30 ml DAILY PO 08/13/24 10:00 08/14/24 08:24 30 ML Tramadol HCl 50 mg Q6HP PRN PO 08/13/24 00:15 08/14/24 09:56 50 MG Ondansetron HCl 4 mg Q4HP PRN IV 08/13/24 00:15 Nitroglycerin 0.4 mg Q5MINP PRN SL 08/13/24 00:15 Morphine Sulfate 2 mg Q30M PRN IV 08/13/24 00:15 Apixaban 5 mg BID PO 08/13/24 10:00 08/14/24 08:24 5 MG Levothyroxine Sodium 75 mcg QAM@0600 PO 08/14/24 06:00 08/14/24 06:24 75 MCG Propranolol HCl 20 mg BID PO 08/13/24 22:00 08/14/24 08:28 20 MG Azithromycin 250 ml @ 125 mls/hr DAILY IV 08/13/24 12:00 08/14/24 09:52 125 MLS/HR Polyethylene Glycol 17 gm DAILYPRN PRN PO 08/13/24 12:15 Laboratory Results Laboratory Tests 08/14/24 05:48 Chemistry Test 08/14/24 05:48 Albumin 2.6 g/dL (3.2-4.8) L Calcium Level 9.7 mg/dL (8.7-10.4) Total Protein 5.6 g/dL (5.7-8.2) L LFT Test 08/14/24 05:48 Alanine Aminotransferase (ALT) 291 U/L (7-40) H Alkaline Phosphatase 123 U/L (46-116) H Aspartate Amino Transferase (AST) 347 U/L (13-40) H Total Bilirubin 3.5 mg/dL (0.2-1.0) H Urinalysis Test 08/12/24 18:58 Urine Color Dark-yellow (Yellow) Urine Clarity Clear (Clear) Urine pH 5.5 (5.0-9.0) Urine Specific [place] 1.017 (1.001-1.035) Urine Protein 1+ (Negative) H Urine Ketones Negative (Negative) Urine Blood Negative /uL (Negative) Urine Nitrite Negative (Negative) Urine Bilirubin 1+ (Negative) H Urine Urobilinogen 6 mg/dL (Negative) Urine Leukocyte Esterase Negative /uL (Negative) Urine RBC <1 /hpf (0 - 4) Urine Microscopic WBC 1 /HPF (0-5) Urine Squamous Epithelial Cells None seen /hpf (<5) Urine Bacteria None seen /hpf (None Seen) Urine Mucus Few (None Seen) Urine Glucose Normal mg/dL (Normal) Microbiology Microbiology Date/Time Source Procedure Growth Status 08/12/24 18:36 Blood Blood Culture - Preliminary NO GROWTH AFTER 24 HOURS OF INCUBATION. Resulted Labs and/or images reviewed: Labs reviewed by me, Image(s) reviewed by me Assessment/Plan Assessment/Plan Impression: -acute on chronic hypoxic respiratory failure -hepatic carcinoma with chemotherapy -constipation -atelectasis -hypothyroidism -primary hypertension -dehydration with azotemia -probable community-acquired pneumonia Gram-positive/Gram-negative etiology -hyponatremia Plan: Events: Patient reports no change in her clinical status. Continues to report having right lower quadrant pain. Positive bowel movement. Patient now with mild hyperkalemia. Heart rate improved with beta-zach -nephrology consultation -IV hydration with sodium bicarbonate drip. One dose of Lokelma. -increase levothyroxine -incentive spirometer -continue Rocephin, add azithromycin -continue propranolol -repeat labs in a.m., chest x-ray today Total time spent with patient discussing and formulating plan of care: 35 minutes. This medical document was created using an electronic medical record system with [employer] dictation system. Although this document has been carefully reviewed, there may still be some phonetic and typographical errors. These areas are purely typographical due to imperfections of the software programs, and do not reflect any compromise in the patient's medical care. Plan discussed with: Patient, Daughter (Joselyn), Other (RN) My Orders Orders - TAY HUYNH NP Procedure Category Date Status Time Sodium Bicarb PHA 08/14/24 In Process 50meq/50ml Vial 12:30 Date of Service: Aug 14, 2024 Billing Provider: TAY HUYNH NP Common Visit Codes: [id number] INP/OBS CARE(HIGH) TAY HUYNH NP Aug 14, 2024 12:41
[2024-08-14] MEDS: SODIUM ZIRCONIUM CYCL 10 GM PAK PO ONE (13:27)
[2024-08-14] MEDS: SODIUM BICARB 50mEq/50ml Vial 50 ML in SOD CHL 0.45% 1,000 ML IV ONE (13:27)
--- NOTE | 2024-08-14 14:15 | DVH ---
CHEST RADIOGRAPH Indication: pna Technique: Single frontal view of the chest was obtained Comparison: XY CHEST PORTABLE on DOS: 08/12/24 FINDINGS: Lines and Tubes: None Lungs: Diffuse interstitial prominence. Obscuration of the left hemidiaphragm . Bronchovascular crowd ing from low lung volumes. No pneumothorax. Cardiomediastinal contours: Unremarkable Bones: No acute osseous abnormality. IMPRESSION: Bronchovascular crowding due to low lung volumes with bibasilar atelectasis and possible trace left-s ided pleural effusion. Underlying left basilar pneumonia can not be excluded.
--- NOTE | 2024-08-14 17:47 | DVHINCON2 ---
Date of service: Aug 14, 2024 Referring Physician Jameel Bautista Reason for Consultation Hyponatremia History of Present Illness Patient is a 74-year-old female with past medical history significant for Hypertension, Stage 4 metastatic liver cancer, liver cirrhosis and arthritis is admitted for generalized weakness and hepatic encephalopathy on admission patient found to have sodium of 127 milliequivalent/liter nephrology is consulted for hyponatremia Past Medical History Past Medical History: Hypertension, Stage 4 metastatic liver cancer, arthritis Past Surgical History Past Surgical History: BTL, cholecystectomy Allergies: Coded Allergies: NO KNOWN ALLERGIES (Unverified , 03/18/22) Home Meds Reported Medications Pantoprazole Sodium Sesquihydr (Pantoprazole Sodium) 40 Mg Tab, 1 TAB PO DAILY for 90 Days, #90 08/13/24 Erythromycin (Erythromycin) 5 Mg/Gm Oin, 0.5 RIGHTEYE Q6H for 5 Days, #1 08/13/24 Etanercept (Enbrel Sureclick) 50 Mg/Ml Inj, 1 SYR SC QWEEKLY for 28 Days, #4 08/13/24 Dicyclomine Hcl (BENTYL CAPSULE) 10 Mg Cp, 1 CAP PO TID PRN for 20 Days, #60 08/13/24 Lidocaine (Lidocaine) 5 % Pad, 1 PATCH TOP DAILY for 30 Days, #30 08/13/24 Olanzapine (OLANZAPINE) 2.5 Mg Tab, 1 TAB PO HS for 30 Days, #30 08/13/24 Levothyroxine Sodium (Levothyroxine Sodium) 25 Mcg Tab, 1 TAB PO QAM for 30 Days, #30 08/13/24 Tramadol Hcl (Tramadol Hcl) 50 Mg Tab, 1 TAB PO TID for 30 Days, #90 08/13/24 Propranolol HCl (Propranolol Hydrochloride) 20 Mg Tab, 1 TAB PO BID for 90 Days, #180 08/13/24 Lisinopril (Lisinopril) 40 Mg Tab, 1 TAB PO BID for 90 Days, #180 08/13/24 Amlodipine Besylate (Amlodipine Besylate) 5 Mg Tab, 1 TAB PO DAILY for 90 Days, #90 08/13/24 Prednisone (Prednisone) 10 Mg Tab, 1 TAB PO DAILY for 90 Days, #90 12/19/23 Apixaban Base (ELIQUIS) 5 Mg Tab, 1 TAB PO BID for 90 Days, #180 12/19/23 Discontinued Reported Medications Propranolol Hcl (Inderal La) 60 Mg Cap, 20 MG PO BID, CAP 12/19/23 Current Medications Family History: Diabetes mellitus G8 MOTHER Review of Systems Can not be obtained due to encephalopathy H&P Exam Vital Signs/I&O Vital Sign Date Time Temp Pulse Resp B/P (MAP) Pulse Ox O2 Delivery O2 Flow Rate FiO2 08/15/24 05:00 97.3 87 18 110/62 (78) 100 97.3 08/14/24 20:00 Nasal Cannula* 4 36 Intake and Output 08/14/24 08/15/24 18:59 06:59 Intake Total 2758 ml 400 ml Output Total 500 ml 200 ml Balance 2258 ml 200 ml Intake Oral 2458 ml 400 ml IV Total 300 ml Output Urine Total 500 ml 200 ml # Bowel Movements 3 Physical Exam Patient is awake bed confused Lungs clear to auscultation bilaterally Cardiac exam regular rate and rhythm GI distended positive ascites normal Extremities no clubbing cyanosis or edema Neuro patient is altered Labs/Diagnostic Data Labs/Diagnostic Data Laboratory Tests Test 08/14/24 17:40 08/14/24 05:48 08/14/24 04:26 08/13/24 01:40 Range/Units Urine Color Yellow Yellow Urine Clarity Clear Clear Urine pH 6.0 5.0-9.0 Urine Specific [place] 1.016 1.001-1.035 Urine Protein Trace H Negative Urine Ketones Negative Negative Urine Blood 2+ H Negative /uL Urine Nitrite Negative Negative Urine Bilirubin 1+ H Negative Urine Urobilinogen 8 H Negative mg/dL Urine Leukocyte Esterase 1+ Negative /uL Urine RBC 71 0 - 4 /hpf Urine Microscopic WBC 28 H 0-5 /HPF Urine Squamous Epithelial Cells None seen <5 /hpf Urine Bacteria None seen None Seen /hpf Urine Osmolality 471 mOsm/kg Urine Creatinine 32.90 30.0-125.0 mg/dL Urine Protein/Creatinine Ratio 1.02 Urine Sodium 11 L 40-220 mmol/L Urine Glucose Normal Normal mg/dL Urine Total Protein 33.6 H 1-14 mg/dL White Blood Count 4.3 L 4.4-10.8 10^3/uL Red Blood Count 2.98 L 4.0-5.20 10^6/uL Hemoglobin 9.5 L 12.2-16.2 g/dL Hematocrit 27.3 #L 36.0-46.0 % Mean Corpuscular Volume 91.5 80.0-100.0 fL Mean Corpuscular Hemoglobin 31.7 28.0-32.0 pg Mean Corpuscular Hemoglobin Concent 34.7 32.0-36.0 g/dL Red Cell Distribution Width 18.7 H 11.8-14.3 % Platelet Count 186 140-450 10^3/uL Mean Platelet Volume 7.4 6.9-10.8 fL Neutrophils (%) (Auto) 84.8 H 37.0-80.0 % Lymphocytes (%) (Auto) 4.5 L 10.0-50.0 % Monocytes (%) (Auto) 10.4 0.0-12.0 % Eosinophils (%) (Auto) 0.1 0.0-7.0 % Basophils (%) (Auto) 0.2 0.0-2.0 % Neutrophils # (Auto) 3.6 1.6-8.6 10 ^3/uL Lymphocytes # (Auto) 0.2 L 0.4-5.4 10 ^3/uL Monocytes # (Auto) 0.4 0-1.3 10 ^3/uL Eosinophils # (Auto) 0 0-0.8 10 ^3/uL Basophils # (Auto) 0 0-0.2 10 ^3/uL Nucleated Red Blood Cells 0.1 % Sodium Level 127 L 136-145 mmol/L Potassium Level 5.3 H 3.5-5.1 mmol/L Chloride Level 98 98-107 mmol/L Carbon Dioxide Level 23 20-31 mmol/L Anion Gap 6 5-15 Blood Urea Nitrogen 38 H 9-23 mg/dL Creatinine 0.46 L 0.550-1.02 mg/dL Glomerular Filtration Rate Calc 99 >90 mL/min BUN/Creatinine Ratio 82.6 H 10.0-20.0 Serum Glucose 76 74-106 mg/dL Uric Acid 3.7 3.1-7.8 mg/dL Calcium Level 9.7 8.7-10.4 mg/dL Phosphorus Level 3.4 2.4-5.1 mg/dL Magnesium Level 1.9 1.6-2.6 mg/dL Total Bilirubin 3.5 H 0.2-1.0 mg/dL Aspartate Amino Transferase (AST) 347 H 13-40 U/L Alanine Aminotransferase (ALT) 291 H 7-40 U/L Alkaline Phosphatase 123 H 46-116 U/L B-Type Natriuretic Peptide 95.31 0-100 pg/mL Total Protein 5.6 L 5.7-8.2 g/dL Albumin 2.6 L 3.2-4.8 g/dL Vitamin D 25-Hydroxy 53.7 30.0-100 ng/mL Stool Occult Blood Positive Negative Stool Occult Blood Sample #3 Negative Lactic Acid Level 2.7 *H 0.4-2.0 mmol/L Free Thyroxine Index 1.7 1.2-4.9 Thyroxine (T4) 4.6 4.5-12.0 ug/dL Triiodothyronine (T3) Uptake 38 24-39 % Hepatitis B Surface Antigen Negative Negative Hepatitis C Antibody Reactive *A Negative Test 08/12/24 23:49 08/12/24 21:05 08/12/24 19:38 08/12/24 18:58 Range/Units White Blood Count 5.1 # 4.4-10.8 10^3/uL Red Blood Count 2.72 L 4.0-5.20 10^6/uL Hemoglobin 8.7 #L 12.2-16.2 g/dL Hematocrit 24.8 #L 36.0-46.0 % Mean Corpuscular Volume 91.1 80.0-100.0 fL Mean Corpuscular Hemoglobin 31.8 28.0-32.0 pg Mean Corpuscular Hemoglobin Concent 34.9 32.0-36.0 g/dL Red Cell Distribution Width 18.6 H 11.8-14.3 % Platelet Count 168 140-450 10^3/uL Mean Platelet Volume 7.1 6.9-10.8 fL Neutrophils (%) (Auto) 85.3 H 37.0-80.0 % Lymphocytes (%) (Auto) 4.1 L 10.0-50.0 % Monocytes (%) (Auto) 10.5 0.0-12.0 % Eosinophils (%) (Auto) 0.0 0.0-7.0 % Basophils (%) (Auto) 0.1 0.0-2.0 % Neutrophils # (Auto) 4.4 1.6-8.6 10 ^3/uL Lymphocytes # (Auto) 0.2 L 0.4-5.4 10 ^3/uL Monocytes # (Auto) 0.5 0-1.3 10 ^3/uL Eosinophils # (Auto) 0 0-0.8 10 ^3/uL Basophils # (Auto) 0 0-0.2 10 ^3/uL Nucleated Red Blood Cells 0.0 % Prothrombin Time 14.1 H 9.3-11.8 sec Prothrombin Time INR 1.37 H 0.9-1.15 Activated Partial Thromboplast Time 43.5 H 24.5-34.5 SEC Sodium Level 130 L 136-145 mmol/L Potassium Level 4.8 3.5-5.1 mmol/L Chloride Level 100 98-107 mmol/L Carbon Dioxide Level 25 20-31 mmol/L Anion Gap 5 5-15 Blood Urea Nitrogen 39 H 9-23 mg/dL Creatinine 0.48 L 0.550-1.02 mg/dL Glomerular Filtration Rate Calc 98 >90 mL/min BUN/Creatinine Ratio 81.3 H 10.0-20.0 Serum Glucose 106 74-106 mg/dL Lactic Acid Level 2.6 *H 2.7 *H 0.4-2.0 mmol/L Calcium Level 8.5 L 8.7-10.4 mg/dL Total Bilirubin 2.9 H 0.2-1.0 mg/dL Aspartate Amino Transferase (AST) 853 H 13-40 U/L Alanine Aminotransferase (ALT) 390 H 7-40 U/L Alkaline Phosphatase 110 46-116 U/L Total Protein 5.4 L 5.7-8.2 g/dL Albumin 2.6 L 3.2-4.8 g/dL Thyroid Stimulating Hormone (TSH) 10.36 H 0.55-4.78 uIU/mL Troponin I High Sensitivity 6 6 </=34 ng/L Urine Color Dark-yellow Yellow Urine Clarity Clear Clear Urine pH 5.5 5.0-9.0 Urine Specific [place] 1.017 1.001-1.035 Urine Protein 1+ H Negative Urine Ketones Negative Negative Urine Blood Negative Negative /uL Urine Nitrite Negative Negative Urine Bilirubin 1+ H Negative Urine Urobilinogen 6 Negative mg/dL Urine Leukocyte Esterase Negative Negative /uL Urine RBC <1 0 - 4 /hpf Urine Microscopic WBC 1 0-5 /HPF Urine Squamous Epithelial Cells None seen <5 /hpf Urine Bacteria None seen None Seen /hpf Urine Mucus Few None Seen Urine Glucose Normal Normal mg/dL Test 08/12/24 18:36 08/12/24 18:34 08/12/24 17:41 Range/Units White Blood Count 8.1 4.4-10.8 10^3/uL Red Blood Count 3.76 L 4.0-5.20 10^6/uL Hemoglobin 11.6 L 12.2-16.2 g/dL Hematocrit 34.0 L 36.0-46.0 % Mean Corpuscular Volume 90.3 80.0-100.0 fL Mean Corpuscular Hemoglobin 30.7 28.0-32.0 pg Mean Corpuscular Hemoglobin Concent 34.0 32.0-36.0 g/dL Red Cell Distribution Width 18.4 H 11.8-14.3 % Platelet Count 289 140-450 10^3/uL Mean Platelet Volume 7.5 6.9-10.8 fL Neutrophils (%) (Auto) 86.2 H 37.0-80.0 % Lymphocytes (%) (Auto) 4.6 L 10.0-50.0 % Monocytes (%) (Auto) 9.1 0.0-12.0 % Eosinophils (%) (Auto) 0.0 0.0-7.0 % Basophils (%) (Auto) 0.1 0.0-2.0 % Neutrophils # (Auto) 6.9 1.6-8.6 10 ^3/uL Lymphocytes # (Auto) 0.4 0.4-5.4 10 ^3/uL Monocytes # (Auto) 0.7 0-1.3 10 ^3/uL Eosinophils # (Auto) 0 0-0.8 10 ^3/uL Basophils # (Auto) 0 0-0.2 10 ^3/uL Nucleated Red Blood Cells 0.1 % Sodium Level 127 L 136-145 mmol/L Potassium Level 5.1 3.5-5.1 mmol/L Chloride Level 92 L 98-107 mmol/L Carbon Dioxide Level 27 20-31 mmol/L Anion Gap 8 5-15 Blood Urea Nitrogen 46 H 9-23 mg/dL Creatinine 0.62 0.550-1.02 mg/dL Glomerular Filtration Rate Calc 92 >90 mL/min BUN/Creatinine Ratio 74.2 H 10.0-20.0 Serum Glucose 133 H 74-106 mg/dL Lactic Acid Level 3.8 *H 0.4-2.0 mmol/L Calcium Level 9.0 8.7-10.4 mg/dL Magnesium Level 1.8 1.6-2.6 mg/dL Total Bilirubin 3.9 H 0.2-1.0 mg/dL Aspartate Amino Transferase (AST) 1355 H 13-40 U/L Alanine Aminotransferase (ALT) 547 H 7-40 U/L Alkaline Phosphatase 160 H 46-116 U/L Ammonia 35 H 11-32 umol/L Troponin I High Sensitivity 5 </=34 ng/L Total Protein 5.9 5.7-8.2 g/dL Albumin 2.5 L 3.2-4.8 g/dL Lipase 24 12-53 U/L Influenza Type A Antigen Negative Negative Influenza Type B Antigen Negative Negative SARS-CoV-2 Antigen (Rapid) Negative NEGATIVE POC Glucose 146 H 70-106 mg/dl Assessment Hyponatremia due to excess H2O Hyperkalemia Hepatic encephalopathy Liver cirrhosis Hepatocellular carcinoma Hypoalbuminemia Normal kidney function Anemia due To blood loss GI bleeding Recommendations Closely monitor fluid and electrolytes Avoid nephrotoxic medications Strict I&Os Fluid restrictions Add furosemide 40 mg IV q.day Lactulose Packed red blood cell transfusion p.r.n. Check urine analysis urine electrolytes and protein excretion GI consult We will continue to follow Patient seen and examined by myself. I discussed my plan of care with the primary nurse at the bedside I would like to thank Jameel for the consult, will follow Plan discussed with: Patient JUAN GRANDE MD Aug 14, 2024 17:47
[2024-08-14 18:19] LABS: Magnesium 1.9 mg/dL (1.6-2.6)
[2024-08-14 18:21] LABS: Phosphorus 3.4 mg/dL (2.4-5.1)
[2024-08-14 19:06] LABS: Urine Bacteria None Seen /hpf (None Seen)
[2024-08-14 19:33] LABS: Urine Blood 2+ /uL (Negative); Urine Clarity Clear (Clear); Urine Color Yellow (Yellow); Urine Protein, UAD TRACE (Negative); Urine Specific Gravity 1.016 (1.001-1.035); Urine Squamous Epithelial Cell None Seen /hpf (<5); Urine Urobilinogen 8 mg/dL (Negative); Urine WBC 28 /HPF (0-5)
[2024-08-14 19:37] LABS: Protein, Urine 33.6 mg/dL (1-14)
[2024-08-14 19:40] LABS: Creatinine, Urine 32.9 mg/dL (30.0-125.0); Urine Protein/Creatinine Ratio 1.02
[2024-08-15] VITALS (7 sets, daily range): BP systolic 97–141; BP diastolic 60–80; PULSE 80–94; RESP 17–18; TEMP 96.9–98; O2SAT 95–100
--- NOTE | 2024-08-15 09:34 | DVHPN2 ---
Progress Note Date Seen: Aug 15, 2024 Medical Necessity Reason Pt with a Central, PICC or Fol: No Subjective Other Systems: Patient seen and examined by myself today in follow-up, patient remained confused and altered Objective vital signs Vital Sign Date Time Temp Pulse Resp B/P (MAP) Pulse Ox O2 Delivery O2 Flow Rate FiO2 08/15/24 05:00 97.3 87 18 110/62 (78) 100 97.3 08/14/24 20:00 Nasal Cannula* 4 36 Total Intake and Output 08/14/24 08/14/24 08/15/24 15:00 23:00 07:00 Intake Total 658 ml 2100 ml 1000 ml Output Total 500 ml 200 ml Balance 658 ml 1600 ml 800 ml medications Current Medications Medications Dose Ordered Sig/Lachelle Route Start Time Stop Time Status Last Admin Dose Admin Ceftriaxone Sodium 50 ml @ 100 mls/hr DAILY@09 IV 08/13/24 09:00 08/14/24 08:24 100 MLS/HR Lactulose 30 ml DAILY PO 08/13/24 10:00 08/14/24 08:24 30 ML Tramadol HCl 50 mg Q6HP PRN PO 08/13/24 00:15 08/14/24 18:23 50 MG Ondansetron HCl 4 mg Q4HP PRN IV 08/13/24 00:15 Nitroglycerin 0.4 mg Q5MINP PRN SL 08/13/24 00:15 Morphine Sulfate 2 mg Q30M PRN IV 08/13/24 00:15 Apixaban 5 mg BID PO 08/13/24 10:00 08/14/24 21:37 5 MG Levothyroxine Sodium 75 mcg QAM@0600 PO 08/14/24 06:00 08/15/24 05:43 75 MCG Propranolol HCl 20 mg BID PO 08/13/24 22:00 08/14/24 21:28 20 MG Azithromycin 250 ml @ 125 mls/hr DAILY IV 08/13/24 12:00 08/14/24 09:52 125 MLS/HR Polyethylene Glycol 17 gm DAILYPRN PRN PO 08/13/24 12:15 Examination: LUNGS:Normal, CVS:Normal, MSK:Normal laboratory and microbiology Laboratory Tests 08/14/24 05:48 Test 08/14/24 05:48 Range/Units Serum Glucose 76 74-106 mg/dL Microbiology Date/Time Source Procedure Growth Status 08/12/24 18:36 Blood Blood Culture - Preliminary NO GROWTH AFTER 48 HOURS OF INCUBATION. Resulted Problem List/Assessment/Plan Problem List/Assessment/Plan Hyponatremia due to excess H2O Hyperkalemia Hepatic encephalopathy Liver cirrhosis Hepatocellular carcinoma Hypoalbuminemia Normal kidney function Anemia due To blood loss GI bleeding Recommendations Increased urine output Repeat electrolytes avoid rapid correction of serum sodium Strict I&Os Continue Fluid restrictions Furosemide 40 mg IV q.day Lactulose Packed red blood cell transfusion p.r.n. GI consult We will continue to follow Plan discussed with: Other (Nurse) My Orders My Orders Orders - JUAN GRANDE MD Procedure Category Date Status Time Hepatitis B Surface LAB 08/14/24 In Process Antigen 17:40 Hepatitis C Antibody LAB 08/14/24 In Process 17:40 JUAN GRANDE MD Aug 15, 2024 09:34
[2024-08-15] MEDS ORDERED: PANTOPRAZOLE 40 MG TAB PO SCH (12:15)
[2024-08-15 13:30] LABS: Basophils # (auto) 0 10 ^3/uL (0-0.2); Basophils % (auto) 0.1 % (0.0-2.0); Eosinophils # (auto) 0 10 ^3/uL (0-0.8); Eosinophils % (auto) 0.4 % (0.0-7.0); Hematocrit 31.7 % (36.0-46.0); Hemoglobin 10.4 g/dL (12.2-16.2); Lymphocytes # (auto) 0.2 10 ^3/uL (0.4-5.4); Lymphocytes % (auto) 4.5 % (10.0-50.0); Mean Corpuscular Hemoglobin 30.5 pg (28.0-32.0); Mean Corpuscular Hgb Conc. 32.9 g/dL (32.0-36.0); Mean Corpuscular Volume 92.8 fL (80.0-100.0); Monocytes # (auto) 0.6 10 ^3/uL (0-1.3); Monocytes % (auto) 11.4 % (0.0-12.0); Neutrophils # (auto) 4.4 10 ^3/uL (1.6-8.6); Neutrophils % (auto) 83.6 % (37.0-80.0); Nucleated Red Blood Cells % 0.2 %; Platelet Count (auto) 272 10^3/uL (140-450); Red Blood Cells 3.41 10^6/uL (4.0-5.20); Red Cell Distribution Width 19.1 % (11.8-14.3); White Blood Cell 5.3 10^3/uL (4.4-10.8)
--- NOTE | 2024-08-15 13:33 | DVHPN2 ---
Subjective Patient reports having cough, generalized weakness Reviewed: Care Plan, H&P, Labs, Medications Changes from previous H/P or p: No Changes General: Per HPI Objective Vitals Vital Signs Date Time Temp Pulse Resp B/P (MAP) Pulse Ox O2 Delivery O2 Flow Rate FiO2 08/15/24 12:12 96.9 89 18 141/80 (100) 98 96.9 08/15/24 08:00 Nasal Cannula* 3 32 Intake/Output Intake and Output 08/15/24 07:00 Intake Total 3758 ml Output Total 700 ml Balance 3058 ml Intake Oral 2858 ml IV Total 900 ml Output Urine Total 700 ml # Bowel Movements 3 General Appearance: Alert, Oriented X3, Cooperative, mild distress HEENT: Atraumatic, PERRLA Cardiovascular: Normal S1, Normal S2, Other (Sinus tachycardia) Abdomen: Normal bowel sounds, Other (Distended abdomen,? Ascites) Musculoskeletal: Normal sensory function, Normal motor function Neuro: Normal gait, Normal speech, Cranial nerves 3-12 NL Skin: Dry, Intact Psych/Mental Status: Mental status NL, Mood NL Medications Current Medications Medications Dose Ordered Sig/Lachelle Route Start Time Stop Time Status Last Admin Dose Admin Ceftriaxone Sodium 50 ml @ 100 mls/hr DAILY@09 IV 08/13/24 09:00 08/15/24 09:53 100 MLS/HR Lactulose 30 ml DAILY PO 08/13/24 10:00 08/15/24 09:53 30 ML Tramadol HCl 50 mg Q6HP PRN PO 08/13/24 00:15 08/14/24 18:23 50 MG Ondansetron HCl 4 mg Q4HP PRN IV 08/13/24 00:15 Nitroglycerin 0.4 mg Q5MINP PRN SL 08/13/24 00:15 Morphine Sulfate 2 mg Q30M PRN IV 08/13/24 00:15 Apixaban 5 mg BID PO 08/13/24 10:00 08/15/24 09:54 5 MG Levothyroxine Sodium 75 mcg QAM@0600 PO 08/14/24 06:00 08/15/24 05:43 75 MCG Propranolol HCl 20 mg BID PO 08/13/24 22:00 08/15/24 09:54 20 MG Azithromycin 250 ml @ 125 mls/hr DAILY IV 08/13/24 12:00 08/15/24 11:15 125 MLS/HR Polyethylene Glycol 17 gm DAILYPRN PRN PO 08/13/24 12:15 Pantoprazole Sodium 40 mg BID@0700,1700 PO 08/15/24 17:00 Laboratory Results Chemistry Test 08/15/24 13:00 Calcium Level Pending Urinalysis Test 08/12/24 18:58 08/14/24 17:40 Urine Mucus Few (None Seen) Urine Color Yellow (Yellow) Urine Clarity Clear (Clear) Urine pH 6.0 (5.0-9.0) Urine Specific [place] 1.016 (1.001-1.035) Urine Protein Trace (Negative) H Urine Ketones Negative (Negative) Urine Blood 2+ /uL (Negative) H Urine Nitrite Negative (Negative) Urine Bilirubin 1+ (Negative) H Urine Urobilinogen 8 mg/dL (Negative) H Urine Leukocyte Esterase 1+ /uL (Negative) Urine RBC 71 /hpf (0 - 4) Urine Microscopic WBC 28 /HPF (0-5) H Urine Squamous Epithelial Cells None seen /hpf (<5) Urine Bacteria None seen /hpf (None Seen) Urine Osmolality 471 mOsm/kg Urine Creatinine 32.90 mg/dL (30.0-125.0) Urine Protein/Creatinine Ratio 1.02 Urine Sodium 11 mmol/L (40-220) L Urine Glucose Normal mg/dL (Normal) Urine Total Protein 33.6 mg/dL (1-14) H Microbiology Microbiology Date/Time Source Procedure Growth Status 08/12/24 18:36 Blood Blood Culture - Preliminary NO GROWTH AFTER 48 HOURS OF INCUBATION. Resulted Labs and/or images reviewed: Labs reviewed by me, Image(s) reviewed by me Assessment/Plan Assessment/Plan Impression: -acute on chronic hypoxic respiratory failure -hepatic carcinoma with chemotherapy -constipation -atelectasis -hypothyroidism -primary hypertension -dehydration with azotemia -probable community-acquired pneumonia Gram-positive/Gram-negative etiology -hyponatremia Plan: Events: Patient was states that she was feeling better. FOBT positive. Patient had bowel movement today with only noted blood with wiping. -nephrology consultation: Recommendations reviewed -repeat FOBT -increase levothyroxine -incentive spirometer -continue Rocephin, add azithromycin -continue propranolol -repeat chest x-ray reviewed. Minimal left lower lobe opacity. Attempt to weaned off oxygen. -labs today are pending. -PT evaluation Total time spent with patient discussing and formulating plan of care: 35 minutes. This medical document was created using an electronic medical record system with [employer] dictation system. Although this document has been carefully reviewed, there may still be some phonetic and typographical errors. These areas are purely typographical due to imperfections of the software programs, and do not reflect any compromise in the patient's medical care. Plan discussed with: Patient, Other (RN) My Orders Orders - TAY HUYNH NP Procedure Category Date Status Time * Dietary Consult CONS 08/14/24 Transmitted 15:42 Apply Barrier Cream JENNIFER 08/14/24 In Process 11:03 Basic Metabolic Panel LAB 08/15/24 In Process 12:08 Stool Occult Blood LAB 08/15/24 Logged 12:12 Complete Blood Count LAB 08/15/24 In Process 12:12 Pantoprazole Tablet PHA 08/15/24 In Process (Protonix Tablet) 17:00 Date of Service: Aug 15, 2024 Billing Provider: TAY HUYNH NP Common Visit Codes: 47103-OEEMETCTIR INP/OBS CARE(HIGH) TAY HUYNH NP Aug 15, 2024 13:33
[2024-08-15 13:34] LABS: Anion Gap 7 (5-15); Carbon Dioxide 22 mmol/L (20-31); Potassium 4.9 mmol/L (3.5-5.1)
[2024-08-15 13:40] LABS: BUN/Creatinine Ratio 87.3 (10.0-20.0)
[2024-08-15 13:50] LABS: Blood Urea Nitrogen 48 mg/dL (9-23); Calcium 8.6 mg/dL (8.7-10.4); Chloride 97 mmol/L (98-107); Glucose 73 mg/dL (74-106); Sodium 126 mmol/L (136-145)
[2024-08-15] MEDS: PANTOPRAZOLE 40 MG TAB PO ONE (14:17)
[2024-08-15] MEDS: PANTOPRAZOLE 40 MG TAB PO SCH (16:51)
[2024-08-16] VITALS (8 sets, daily range): BP systolic 100–117; BP diastolic 55–78; PULSE 75–99; RESP 18–20; TEMP 96.9–98; O2SAT 94–98
--- NOTE | 2024-08-16 10:21 | DVHPN2 ---
Progress Note Date Seen: Aug 16, 2024 Medical Necessity Reason Pt with a Central, PICC or Fol: No Subjective Patient reports: No new complaints Other Systems: Patient seen and examined by myself today in follow-up Objective vital signs Vital Sign Date Time Temp Pulse Resp B/P (MAP) Pulse Ox O2 Delivery O2 Flow Rate FiO2 08/16/24 08:49 82 106/65 08/16/24 05:00 98.0 18 94 98.0 08/15/24 20:00 Nasal Cannula* 3 32 Total Intake and Output 08/15/24 08/15/24 08/16/24 15:00 23:00 07:00 Intake Total 300 ml 1000 ml 480 ml Output Total 350 ml 450 ml Balance 300 ml 650 ml 30 ml medications Current Medications Medications Dose Ordered Sig/Lachelle Route Start Time Stop Time Status Last Admin Dose Admin Ceftriaxone Sodium 50 ml @ 100 mls/hr DAILY@09 IV 08/13/24 09:00 08/16/24 08:48 100 MLS/HR Lactulose 30 ml DAILY PO 08/13/24 10:00 08/16/24 08:48 30 ML Tramadol HCl 50 mg Q6HP PRN PO 08/13/24 00:15 08/16/24 05:48 50 MG Ondansetron HCl 4 mg Q4HP PRN IV 08/13/24 00:15 Nitroglycerin 0.4 mg Q5MINP PRN SL 08/13/24 00:15 Morphine Sulfate 2 mg Q30M PRN IV 08/13/24 00:15 Apixaban 5 mg BID PO 08/13/24 10:00 08/16/24 08:48 5 MG Levothyroxine Sodium 75 mcg QAM@0600 PO 08/14/24 06:00 08/16/24 05:48 75 MCG Propranolol HCl 20 mg BID PO 08/13/24 22:00 08/16/24 08:49 20 MG Azithromycin 250 ml @ 125 mls/hr DAILY IV 08/13/24 12:00 08/15/24 11:15 125 MLS/HR Polyethylene Glycol 17 gm DAILYPRN PRN PO 08/13/24 12:15 Pantoprazole Sodium 40 mg BID@0700,1700 PO 08/15/24 17:00 08/16/24 08:48 40 MG Examination: LUNGS:Normal, CVS:Normal, MSK:Abnormal laboratory and microbiology Laboratory Tests 08/15/24 13:00 Test 08/15/24 13:00 Range/Units Serum Glucose 73 L 74-106 mg/dL Microbiology Date/Time Source Procedure Growth Status 08/12/24 18:36 Blood Blood Culture - Preliminary NO GROWTH AFTER 72 HOURS OF INCUBATION. Resulted Problem List/Assessment/Plan Problem List/Assessment/Plan Hyponatremia due to excess H2O Hyperkalemia Hepatic encephalopathy Liver cirrhosis Hepatocellular carcinoma Hypoalbuminemia Normal kidney function Anemia due To blood loss GI bleeding Recommendations Kidney function remained normal Increased urine output Hyponatremia worsened due to excessive IV fluid intake Strict I&Os Reinforce Fluid restrictions, less than 1 L per 24 hours Furosemide 40 mg IV q.day Lactulose Packed red blood cell transfusion p.r.n. GI consult We will continue to follow Plan discussed with: Other (Nurse) Dietary Evaluation Review Comments: 1) Continue current plan of care 2) Consider 2gm Na diet if ammonia is WNL 3) Ensure enlive 240ml BID Expected Outcomes/Goals: Pt will meet 75% estimated needs Fu 3-5 days JUAN GRANDE MD Aug 16, 2024 10:21
[2024-08-16] MEDS: FUROSEMIDE 40 MG/4 ML VIAL IV SCH (10:30)
--- NOTE | 2024-08-16 16:31 | DVHPN2 ---
Subjective Patient reports having cough, generalized weakness Reviewed: Care Plan, H&P, Labs, Medications Changes from previous H/P or p: No Changes General: Per HPI Objective Vitals Vital Signs Date Time Temp Pulse Resp B/P (MAP) Pulse Ox O2 Delivery O2 Flow Rate FiO2 08/16/24 13:00 97.6 91 18 100/57 (71) 97 97.6 08/16/24 08:00 Nasal Cannula* 2 28 Intake/Output Intake and Output 08/16/24 07:00 Intake Total 1780 ml Output Total 800 ml Balance 980 ml Intake Oral 1480 ml IV Total 300 ml Output Urine Total 800 ml # Bowel Movements 3 General Appearance: Alert, Oriented X3, Cooperative, mild distress HEENT: Atraumatic, PERRLA Cardiovascular: Normal S1, Normal S2, Other (Sinus tachycardia) Abdomen: Normal bowel sounds, Other (Distended abdomen,? Ascites) Musculoskeletal: Normal sensory function, Normal motor function Neuro: Normal gait, Normal speech, Cranial nerves 3-12 NL Skin: Dry, Intact Psych/Mental Status: Mental status NL, Mood NL Medications Current Medications Medications Dose Ordered Sig/Lachelle Route Start Time Stop Time Status Last Admin Dose Admin Ceftriaxone Sodium 50 ml @ 100 mls/hr DAILY@09 IV 08/13/24 09:00 08/16/24 08:48 100 MLS/HR Lactulose 30 ml DAILY PO 08/13/24 10:00 08/16/24 08:48 30 ML Tramadol HCl 50 mg Q6HP PRN PO 08/13/24 00:15 08/16/24 05:48 50 MG Ondansetron HCl 4 mg Q4HP PRN IV 08/13/24 00:15 Nitroglycerin 0.4 mg Q5MINP PRN SL 08/13/24 00:15 Morphine Sulfate 2 mg Q30M PRN IV 08/13/24 00:15 Apixaban 5 mg BID PO 08/13/24 10:00 08/16/24 08:48 5 MG Levothyroxine Sodium 75 mcg QAM@0600 PO 08/14/24 06:00 08/16/24 05:48 75 MCG Propranolol HCl 20 mg BID PO 08/13/24 22:00 08/16/24 08:49 20 MG Azithromycin 250 ml @ 125 mls/hr DAILY IV 08/13/24 12:00 08/16/24 10:45 125 MLS/HR Polyethylene Glycol 17 gm DAILYPRN PRN PO 08/13/24 12:15 Pantoprazole Sodium 40 mg BID@0700,1700 PO 08/15/24 17:00 08/16/24 08:48 40 MG Furosemide 40 mg DAILY IV 08/16/24 10:30 Laboratory Results Laboratory Tests 08/15/24 13:00 Urinalysis Test 08/12/24 18:58 08/14/24 17:40 Urine Mucus Few (None Seen) Urine Color Yellow (Yellow) Urine Clarity Clear (Clear) Urine pH 6.0 (5.0-9.0) Urine Specific [place] 1.016 (1.001-1.035) Urine Protein Trace (Negative) H Urine Ketones Negative (Negative) Urine Blood 2+ /uL (Negative) H Urine Nitrite Negative (Negative) Urine Bilirubin 1+ (Negative) H Urine Urobilinogen 8 mg/dL (Negative) H Urine Leukocyte Esterase 1+ /uL (Negative) Urine RBC 71 /hpf (0 - 4) Urine Microscopic WBC 28 /HPF (0-5) H Urine Squamous Epithelial Cells None seen /hpf (<5) Urine Bacteria None seen /hpf (None Seen) Urine Osmolality 471 mOsm/kg Urine Creatinine 32.90 mg/dL (30.0-125.0) Urine Protein/Creatinine Ratio 1.02 Urine Sodium 11 mmol/L (40-220) L Urine Glucose Normal mg/dL (Normal) Urine Total Protein 33.6 mg/dL (1-14) H Microbiology Microbiology Date/Time Source Procedure Growth Status 08/12/24 18:36 Blood Blood Culture - Preliminary NO GROWTH AFTER 72 HOURS OF INCUBATION. Resulted Labs and/or images reviewed: Labs reviewed by me, Image(s) reviewed by me Assessment/Plan Assessment/Plan Impression: -acute on chronic hypoxic respiratory failure -hepatic carcinoma with chemotherapy -constipation -atelectasis -hypothyroidism -primary hypertension -dehydration with azotemia -probable community-acquired pneumonia Gram-positive/Gram-negative etiology -hyponatremia Plan: Events: Patient was states that she was feeling better. Repeat FOBT negative. H&H improving. -nephrology consultation: Recommendations reviewed -increase levothyroxine -incentive spirometer -continue Rocephin, add azithromycin -continue propranolol -repeat chest x-ray reviewed. Minimal left lower lobe opacity. Attempt to weaned off oxygen. -labs today are pending. -PT evaluation: Continue to increase patient was activity. Total time spent with patient discussing and formulating plan of care: 35 minutes. This medical document was created using an electronic medical record system with [employer] dictation system. Although this document has been carefully reviewed, there may still be some phonetic and typographical errors. These areas are purely typographical due to imperfections of the software programs, and do not reflect any compromise in the patient's medical care. Plan discussed with: Patient, Other (RN) Date of Service: Aug 16, 2024 Billing Provider: TAY HUYNH NP Common Visit Codes: [id number] INP/OBS CARE(HIGH) TAY HUYNH NP Aug 16, 2024 16:31
[2024-08-17] VITALS (8 sets, daily range): BP systolic 118–149; BP diastolic 52–72; PULSE 81–103; RESP 16–20; TEMP 97.5–98.8; O2SAT 96–98
[2024-08-17 10:34] LABS: Hepatitis B Surface Antigen Negative (Negative)
[2024-08-17 10:37] LABS: Hepatitis C Antibody Reactive (Negative)
[2024-08-17 12:11] LABS: Potassium 4.5 mmol/L (3.5-5.1)
[2024-08-17 12:12] LABS: Calcium 8.8 mg/dL (8.7-10.4); Carbon Dioxide 23 mmol/L (20-31)
[2024-08-17 12:17] LABS: BUN/Creatinine Ratio 78.8 (10.0-20.0)
[2024-08-17 12:35] LABS: Blood Urea Nitrogen 41 mg/dL (9-23); Glucose 108 mg/dL (74-106)
[2024-08-17 12:36] LABS: Anion Gap 6 (5-15); Chloride 96 mmol/L (98-107); Sodium 125 mmol/L (136-145)
--- NOTE | 2024-08-17 13:15 | DVHPN2 ---
Subjective Patient reports having cough, generalized weakness Reviewed: Care Plan, H&P, Labs, Medications Changes from previous H/P or p: No Changes General: Per HPI Objective Vitals Vital Signs Date Time Temp Pulse Resp B/P (MAP) Pulse Ox O2 Delivery O2 Flow Rate FiO2 08/17/24 13:05 98.1 86 20 119/68 (85) 98 98.1 08/16/24 20:00 Nasal Cannula* 2 28 Intake/Output Intake and Output 08/17/24 07:00 Intake Total 1358 ml Output Total 400 ml Balance 958 ml Intake Oral 1058 ml IV Total 300 ml Output Urine Total 400 ml # Voids 2 # Bowel Movements 6 General Appearance: Alert, Oriented X3, Cooperative, mild distress HEENT: Atraumatic, PERRLA Cardiovascular: Normal S1, Normal S2, Other (Sinus tachycardia) Abdomen: Normal bowel sounds, Other (Distended abdomen,? Ascites) Musculoskeletal: Normal sensory function, Normal motor function Neuro: Normal gait, Normal speech, Cranial nerves 3-12 NL Skin: Dry, Intact Psych/Mental Status: Mental status NL, Mood NL Medications Current Medications Medications Dose Ordered Sig/Lachelle Route Start Time Stop Time Status Last Admin Dose Admin Ceftriaxone Sodium 50 ml @ 100 mls/hr DAILY@09 IV 08/13/24 09:00 08/17/24 09:42 100 MLS/HR Ondansetron HCl 4 mg Q4HP PRN IV 08/13/24 00:15 Nitroglycerin 0.4 mg Q5MINP PRN SL 08/13/24 00:15 Morphine Sulfate 2 mg Q30M PRN IV 08/13/24 00:15 Apixaban 5 mg BID PO 08/13/24 10:00 08/17/24 09:41 5 MG Levothyroxine Sodium 75 mcg QAM@0600 PO 08/14/24 06:00 08/17/24 05:11 75 MCG Azithromycin 250 ml @ 125 mls/hr DAILY IV 08/13/24 12:00 08/17/24 09:42 125 MLS/HR Polyethylene Glycol 17 gm DAILYPRN PRN PO 08/13/24 12:15 Pantoprazole Sodium 40 mg BID@0700,1700 PO 08/15/24 17:00 08/17/24 05:11 40 MG Furosemide 40 mg DAILY IV 08/16/24 10:30 08/17/24 09:43 40 MG Oxycodone HCl 5 mg Q6HP PRN PO 08/17/24 12:45 Propranolol HCl 20 mg TID PO 08/17/24 14:00 UNV Laboratory Results Laboratory Tests 08/15/24 13:00 08/17/24 11:46 Chemistry Test 08/17/24 11:46 Calcium Level 8.8 mg/dL (8.7-10.4) Urinalysis Test 08/12/24 18:58 08/14/24 17:40 Urine Mucus Few (None Seen) Urine Color Yellow (Yellow) Urine Clarity Clear (Clear) Urine pH 6.0 (5.0-9.0) Urine Specific [place] 1.016 (1.001-1.035) Urine Protein Trace (Negative) H Urine Ketones Negative (Negative) Urine Blood 2+ /uL (Negative) H Urine Nitrite Negative (Negative) Urine Bilirubin 1+ (Negative) H Urine Urobilinogen 8 mg/dL (Negative) H Urine Leukocyte Esterase 1+ /uL (Negative) Urine RBC 71 /hpf (0 - 4) Urine Microscopic WBC 28 /HPF (0-5) H Urine Squamous Epithelial Cells None seen /hpf (<5) Urine Bacteria None seen /hpf (None Seen) Urine Osmolality 471 mOsm/kg Urine Creatinine 32.90 mg/dL (30.0-125.0) Urine Protein/Creatinine Ratio 1.02 Urine Sodium 11 mmol/L (40-220) L Urine Glucose Normal mg/dL (Normal) Urine Total Protein 33.6 mg/dL (1-14) H Microbiology Microbiology Date/Time Source Procedure Growth Status 08/12/24 18:36 Blood Blood Culture - Preliminary NO GROWTH AFTER 72 HOURS OF INCUBATION. Resulted Labs and/or images reviewed: Labs reviewed by me, Image(s) reviewed by me Assessment/Plan Assessment/Plan Impression: -acute on chronic hypoxic respiratory failure -hepatic carcinoma with chemotherapy , metastatic disease -constipation -atelectasis -hypothyroidism -primary hypertension -dehydration with azotemia -probable community-acquired pneumonia Gram-positive/Gram-negative etiology -hyponatremia Plan: Events: Patient with confusion, probable acute delirium. Attempted to call the patient was oncologist, . Message left with her to give me a call back on my private cell phone. Patient was exhibiting severe pain, probable metastatic bone pain to her right hip. While in the patient has a lidocaine patch on her hip, tramadol we will be stopped, with a trial of oxycodone per pain management. -nephrology consultation: Recommendations reviewed -increase levothyroxine -incentive spirometer -continue Rocephin, add azithromycin -continue propranolol Repeat labs in a.m.. Total time spent with patient discussing and formulating plan of care: 35 minutes. This medical document was created using an electronic medical record system with [employer] dictation system. Although this document has been carefully reviewed, there may still be some phonetic and typographical errors. These areas are purely typographical due to imperfections of the software programs, and do not reflect any compromise in the patient's medical care. Plan discussed with: Patient, Daughter, Other (RN) My Orders Orders - TAY HUYNH NP Procedure Category Date Status Time Oxycodone Immediate PHA 08/17/24 In Process Rel Tablet 12:45 Propranolol Hcl PHA 08/17/24 Logged Tablet (Inderal 14:00 Complete Blood Count LAB 08/18/24 Verified 04:00 Comprehensive LAB 08/18/24 Verified Metabolic Panel 04:00 Date of Service: Aug 17, 2024 Billing Provider: TAY HUYNH NP Common Visit Codes: [id number] INP/OBS CARE(HIGH) TAY HUYNH NP Aug 17, 2024 13:15
[2024-08-17] MEDS: oxyCODONE HCL 5MG TAB PO PRN (13:41)
--- NOTE | 2024-08-17 13:52 | DVHPN2 ---
Progress Note Date Seen: Aug 17, 2024 Medical Necessity Reason Pt with a Central, PICC or Fol: Yes The following are medically ne: Shaw Catheter Objective vital signs Vital Sign Date Time Temp Pulse Resp B/P (MAP) Pulse Ox O2 Delivery O2 Flow Rate FiO2 08/17/24 13:05 98.1 86 20 119/68 (85) 98 98.1 08/16/24 20:00 Nasal Cannula* 2 28 Total Intake and Output 08/16/24 08/16/24 08/17/24 15:00 23:00 07:00 Intake Total 300 ml 1058 ml Output Total 400 ml Balance 300 ml 658 ml medications Current Medications Medications Dose Ordered Sig/Lachelle Route Start Time Stop Time Status Last Admin Dose Admin Ceftriaxone Sodium 50 ml @ 100 mls/hr DAILY@09 IV 08/13/24 09:00 08/17/24 09:42 100 MLS/HR Ondansetron HCl 4 mg Q4HP PRN IV 08/13/24 00:15 Nitroglycerin 0.4 mg Q5MINP PRN SL 08/13/24 00:15 Morphine Sulfate 2 mg Q30M PRN IV 08/13/24 00:15 Apixaban 5 mg BID PO 08/13/24 10:00 08/17/24 09:41 5 MG Levothyroxine Sodium 75 mcg QAM@0600 PO 08/14/24 06:00 08/17/24 05:11 75 MCG Azithromycin 250 ml @ 125 mls/hr DAILY IV 08/13/24 12:00 08/17/24 09:42 125 MLS/HR Polyethylene Glycol 17 gm DAILYPRN PRN PO 08/13/24 12:15 Pantoprazole Sodium 40 mg BID@0700,1700 PO 08/15/24 17:00 08/17/24 05:11 40 MG Furosemide 40 mg DAILY IV 08/16/24 10:30 08/17/24 09:43 40 MG Oxycodone HCl 5 mg Q6HP PRN PO 08/17/24 12:45 08/17/24 13:41 5 MG Propranolol HCl 20 mg TID PO 08/17/24 14:00 Examination: CVS:Normal, SKIN:Abnormal laboratory and microbiology Laboratory Tests 08/17/24 11:46 08/15/24 13:00 Test 08/17/24 11:46 Range/Units Serum Glucose 108 H 74-106 mg/dL Microbiology Date/Time Source Procedure Growth Status 08/12/24 18:36 Blood Blood Culture - Preliminary NO GROWTH AFTER 72 HOURS OF INCUBATION. Resulted Problem List/Assessment/Plan Problem List/Assessment/Plan Hyponatremia due to excess H2O Hyperkalemia Hepatic encephalopathy Liver cirrhosis Hepatocellular carcinoma Hypoalbuminemia Normal kidney function Anemia due To blood loss GI bleeding patient is in postive fluid balance which is likely cause if Na worsening increase lasix q12hr strict I/O fluid restrict 1L Lactulose Packed red blood cell transfusion p.r.n. GI consult Plan discussed with: Patient My Orders My Orders Orders - IAN RAO MD Procedure Category Date Status Time Furosemide Injection PHA 08/17/24 Transmitted (Lasix Injection) 14:00 Dietary Evaluation Review Comments: 1) Continue current plan of care 2) Consider 2gm Na diet if ammonia is WNL 3) Ensure enlive 240ml BID Expected Outcomes/Goals: Pt will meet 75% estimated needs Fu 3-5 days IAN RAO MD Aug 17, 2024 13:52
[2024-08-17] MEDS: PROPRANOLOL HCL 20 MG TAB PO SCH (15:34)
[2024-08-17] MEDS: FUROSEMIDE 40 MG/4 ML VIAL IV SCH (18:50)
[2024-08-18] VITALS (7 sets, daily range): BP systolic 92–129; BP diastolic 46–58; PULSE 78–95; RESP 15–16; TEMP 97.7–98.1; O2SAT 94–100
[2024-08-18 07:03] LABS: Basophils # (auto) 0 10 ^3/uL (0-0.2); Basophils % (auto) 0.1 % (0.0-2.0); Eosinophils # (auto) 0.1 10 ^3/uL (0-0.8); Eosinophils % (auto) 1.4 % (0.0-7.0); Hematocrit 26.2 % (36.0-46.0); Hemoglobin 9.1 g/dL (12.2-16.2); Lymphocytes # (auto) 0.3 10 ^3/uL (0.4-5.4); Lymphocytes % (auto) 8.5 % (10.0-50.0); Mean Corpuscular Hgb Conc. 34.7 g/dL (32.0-36.0); Mean Corpuscular Volume 89.4 fL (80.0-100.0); Monocytes # (auto) 0.5 10 ^3/uL (0-1.3); Monocytes % (auto) 14.1 % (0.0-12.0); Neutrophils # (auto) 2.8 10 ^3/uL (1.6-8.6); Neutrophils % (auto) 75.9 % (37.0-80.0); Platelet Count (auto) 272 10^3/uL (140-450); Red Blood Cells 2.93 10^6/uL (4.0-5.20); Red Cell Distribution Width 18.7 % (11.8-14.3); White Blood Cell 3.7 10^3/uL (4.4-10.8)
[2024-08-18 07:09] LABS: Anion Gap 8 (5-15)
[2024-08-18 07:12] LABS: Aspartate Aminotransferase 125 U/L (13-40); Bilirubin, Total 2.9 mg/dL (0.2-1.0); Calcium 8.8 mg/dL (8.7-10.4); Carbon Dioxide 24 mmol/L (20-31); Chloride 97 mmol/L (98-107); Potassium 4.3 mmol/L (3.5-5.1); Sodium 129 mmol/L (136-145)
[2024-08-18 07:15] LABS: BUN/Creatinine Ratio 81.1 (10.0-20.0)
[2024-08-18 07:21] LABS: Alanine Aminotransferase 108 U/L (7-40); Albumin 2.3 g/dL (3.2-4.8); Alkaline Phosphatase 328 U/L (46-116); Blood Urea Nitrogen 43 mg/dL (9-23); Glucose 84 mg/dL (74-106); Total Protein 5.3 g/dL (5.7-8.2)
--- NOTE | 2024-08-18 08:59 | DVHPN2 ---
Subjective Patient reports having cough, generalized weakness Reviewed: Care Plan, H&P, Labs, Medications Changes from previous H/P or p: No Changes General: Per HPI Objective Vitals Vital Signs Date Time Temp Pulse Resp B/P (MAP) Pulse Ox O2 Delivery O2 Flow Rate FiO2 08/18/24 08:41 97.9 83 15 92/46 (61) 95 97.9 08/17/24 20:00 Nasal Cannula* 1 24 Intake/Output Intake and Output 08/18/24 07:00 Intake Total 800 ml Output Total 1500 ml Balance -700 ml Intake Oral 500 ml IV Total 300 ml Output Urine Total 1500 ml # Bowel Movements 3 General Appearance: Alert, Oriented X3, Cooperative, mild distress HEENT: Atraumatic, PERRLA Cardiovascular: Normal S1, Normal S2, Other (Sinus tachycardia) Abdomen: Normal bowel sounds, Other (Distended abdomen,? Ascites) Musculoskeletal: Normal sensory function, Normal motor function Neuro: Normal gait, Normal speech, Cranial nerves 3-12 NL Skin: Dry, Intact Psych/Mental Status: Mental status NL, Mood NL Medications Current Medications Medications Dose Ordered Sig/Lachelle Route Start Time Stop Time Status Last Admin Dose Admin Ceftriaxone Sodium 50 ml @ 100 mls/hr DAILY@09 IV 08/13/24 09:00 08/17/24 09:42 100 MLS/HR Ondansetron HCl 4 mg Q4HP PRN IV 08/13/24 00:15 Nitroglycerin 0.4 mg Q5MINP PRN SL 08/13/24 00:15 Morphine Sulfate 2 mg Q30M PRN IV 08/13/24 00:15 Apixaban 5 mg BID PO 08/13/24 10:00 08/17/24 22:29 5 MG Levothyroxine Sodium 75 mcg QAM@0600 PO 08/14/24 06:00 08/18/24 05:25 75 MCG Azithromycin 250 ml @ 125 mls/hr DAILY IV 08/13/24 12:00 08/17/24 09:42 125 MLS/HR Polyethylene Glycol 17 gm DAILYPRN PRN PO 08/13/24 12:15 Pantoprazole Sodium 40 mg BID@0700,1700 PO 08/15/24 17:00 08/18/24 05:25 40 MG Oxycodone HCl 5 mg Q6HP PRN PO 08/17/24 12:45 08/17/24 13:41 5 MG Propranolol HCl 20 mg TID PO 08/17/24 14:00 08/17/24 22:58 20 MG Furosemide 40 mg BIDD IV 08/17/24 18:00 08/18/24 05:27 40 MG Laboratory Results Laboratory Tests 08/18/24 05:52 Chemistry Test 08/17/24 11:46 08/18/24 05:52 Calcium Level 8.8 mg/dL (8.7-10.4) 8.8 mg/dL (8.7-10.4) Albumin 2.3 g/dL (3.2-4.8) L Total Protein 5.3 g/dL (5.7-8.2) L LFT Test 08/18/24 05:52 Alanine Aminotransferase (ALT) 108 U/L (7-40) H Alkaline Phosphatase 328 U/L (46-116) H Aspartate Amino Transferase (AST) 125 U/L (13-40) H Total Bilirubin 2.9 mg/dL (0.2-1.0) H Urinalysis Test 08/12/24 18:58 08/14/24 17:40 Urine Mucus Few (None Seen) Urine Color Yellow (Yellow) Urine Clarity Clear (Clear) Urine pH 6.0 (5.0-9.0) Urine Specific [place] 1.016 (1.001-1.035) Urine Protein Trace (Negative) H Urine Ketones Negative (Negative) Urine Blood 2+ /uL (Negative) H Urine Nitrite Negative (Negative) Urine Bilirubin 1+ (Negative) H Urine Urobilinogen 8 mg/dL (Negative) H Urine Leukocyte Esterase 1+ /uL (Negative) Urine RBC 71 /hpf (0 - 4) Urine Microscopic WBC 28 /HPF (0-5) H Urine Squamous Epithelial Cells None seen /hpf (<5) Urine Bacteria None seen /hpf (None Seen) Urine Osmolality 471 mOsm/kg Urine Creatinine 32.90 mg/dL (30.0-125.0) Urine Protein/Creatinine Ratio 1.02 Urine Sodium 11 mmol/L (40-220) L Urine Glucose Normal mg/dL (Normal) Urine Total Protein 33.6 mg/dL (1-14) H Microbiology Microbiology Date/Time Source Procedure Growth Status 08/12/24 18:36 Blood Blood Culture - Final NO GROWTH AFTER 5 DAYS OF INCUBATION. Complete Labs and/or images reviewed: Labs reviewed by me, Image(s) reviewed by me Assessment/Plan Assessment/Plan Impression: -acute on chronic hypoxic respiratory failure -hepatic carcinoma with chemotherapy , metastatic disease -constipation -atelectasis -hypothyroidism -primary hypertension -dehydration with azotemia -probable community-acquired pneumonia Gram-positive/Gram-negative etiology -hyponatremia Plan: Events: Patient more alert today. Delirium seems to have improved. Hyponatremia also resolving. Discussed with both patient and daughter over the phone patient was condition. All further despite discharge planning. -nephrology consultation: Recommendations reviewed -increase levothyroxine -incentive spirometer -continue Rocephin, add azithromycin -continue propranolol Repeat labs in a.m.. Total time spent with patient discussing and formulating plan of care: 35 minutes. This medical document was created using an electronic medical record system with [employer] system. Although this document has been carefully reviewed, there may still be some phonetic and typographical errors. These areas are purely typographical due to imperfections of the software programs, and do not reflect any compromise in the patient's medical care. Plan discussed with: Patient, Other (RN) My Orders Orders - TAY HUYNH NP Procedure Category Date Status Time Oxycodone Immediate PHA 08/17/24 In Process Rel Tablet 12:45 Propranolol Hcl PHA 08/17/24 In Process Tablet (Inderal 14:00 D/C Shaw JENNIFER 08/18/24 In Process 08:39 Date of Service: Aug 18, 2024 Billing Provider: TAY HUYNH NP Common Visit Codes: [id number] INP/OBS CARE(HIGH) TAY HUYNH NP Aug 18, 2024 08:59
[2024-08-19] VITALS (8 sets, daily range): BP systolic 97–134; BP diastolic 56–68; PULSE 83–103; RESP 15–18; TEMP 97.6–98.6; O2SAT 94–100
--- NOTE | 2024-08-19 12:02 | DVHPN2 ---
Subjective Patient reports having cough, generalized weakness Reviewed: Care Plan, H&P, Labs, Medications Changes from previous H/P or p: No Changes General: Per HPI Objective Vitals Vital Signs Date Time Temp Pulse Resp B/P (MAP) Pulse Ox O2 Delivery O2 Flow Rate FiO2 08/19/24 09:00 97.6 88 16 99/58 (72) 96 97.6 08/18/24 20:00 Nasal Cannula* 1 24 Intake/Output Intake and Output 08/19/24 07:00 Intake Total 1860 ml Output Total 2025 ml Balance -165 ml Intake Oral 1560 ml IV Total 300 ml Output Urine Total 2025 ml # Bowel Movements 2 General Appearance: Alert, Oriented X3, Cooperative, mild distress HEENT: Atraumatic, PERRLA Cardiovascular: Normal S1, Normal S2, Other (Sinus tachycardia) Abdomen: Normal bowel sounds, Other (Distended abdomen,? Ascites) Musculoskeletal: Normal sensory function, Normal motor function Neuro: Normal gait, Normal speech, Cranial nerves 3-12 NL Skin: Dry, Intact Psych/Mental Status: Mental status NL, Mood NL Medications Current Medications Medications Dose Ordered Sig/Lachelle Route Start Time Stop Time Status Last Admin Dose Admin Ceftriaxone Sodium 50 ml @ 100 mls/hr DAILY@09 IV 08/13/24 09:00 08/19/24 10:23 100 MLS/HR Ondansetron HCl 4 mg Q4HP PRN IV 08/13/24 00:15 Nitroglycerin 0.4 mg Q5MINP PRN SL 08/13/24 00:15 Morphine Sulfate 2 mg Q30M PRN IV 08/13/24 00:15 Apixaban 5 mg BID PO 08/13/24 10:00 08/19/24 10:23 5 MG Levothyroxine Sodium 75 mcg QAM@0600 PO 08/14/24 06:00 08/19/24 05:33 75 MCG Azithromycin 250 ml @ 125 mls/hr DAILY IV 08/13/24 12:00 08/19/24 10:00 125 MLS/HR Polyethylene Glycol 17 gm DAILYPRN PRN PO 08/13/24 12:15 Pantoprazole Sodium 40 mg BID@0700,1700 PO 08/15/24 17:00 08/18/24 17:27 40 MG Oxycodone HCl 5 mg Q6HP PRN PO 08/17/24 12:45 08/19/24 04:43 5 MG Propranolol HCl 20 mg TID PO 08/17/24 14:00 08/19/24 05:32 20 MG Furosemide 40 mg BIDD IV 08/17/24 18:00 08/19/24 05:31 40 MG Laboratory Results Laboratory Tests 08/18/24 05:52 Urinalysis Test 08/12/24 18:58 08/14/24 17:40 Urine Mucus Few (None Seen) Urine Color Yellow (Yellow) Urine Clarity Clear (Clear) Urine pH 6.0 (5.0-9.0) Urine Specific [place] 1.016 (1.001-1.035) Urine Protein Trace (Negative) H Urine Ketones Negative (Negative) Urine Blood 2+ /uL (Negative) H Urine Nitrite Negative (Negative) Urine Bilirubin 1+ (Negative) H Urine Urobilinogen 8 mg/dL (Negative) H Urine Leukocyte Esterase 1+ /uL (Negative) Urine RBC 71 /hpf (0 - 4) Urine Microscopic WBC 28 /HPF (0-5) H Urine Squamous Epithelial Cells None seen /hpf (<5) Urine Bacteria None seen /hpf (None Seen) Urine Osmolality 471 mOsm/kg Urine Creatinine 32.90 mg/dL (30.0-125.0) Urine Protein/Creatinine Ratio 1.02 Urine Sodium 11 mmol/L (40-220) L Urine Glucose Normal mg/dL (Normal) Urine Total Protein 33.6 mg/dL (1-14) H Microbiology Microbiology Date/Time Source Procedure Growth Status 08/12/24 18:36 Blood Blood Culture - Final NO GROWTH AFTER 5 DAYS OF INCUBATION. Complete Labs and/or images reviewed: Labs reviewed by me, Image(s) reviewed by me Assessment/Plan Assessment/Plan Impression: -acute on chronic hypoxic respiratory failure -hepatic carcinoma with chemotherapy , metastatic disease -constipation -atelectasis -hypothyroidism -primary hypertension -dehydration with azotemia -probable community-acquired pneumonia Gram-positive/Gram-negative etiology -hyponatremia Plan: Events: We will further delirium noted. Patient was continues to report having generalized body aches, worsening pain to her right heel in right hip. Patient continues to have relief with oxycodone. Discussion made with the patient was oncologist in daughter yesterday. Patient was unable to ambulate at this time secondary to pain. -nephrology consultation: Recommendations reviewed -increase levothyroxine -incentive spirometer -continue Rocephin, add azithromycin -continue propranolol Repeat labs in a.m.. Total time spent with patient discussing and formulating plan of care: 35 minutes. This medical document was created using an electronic medical record system with [employer] system. Although this document has been carefully reviewed, there may still be some phonetic and typographical errors. These areas are purely typographical due to imperfections of the software programs, and do not reflect any compromise in the patient's medical care. Plan discussed with: Patient, Other ( RN) My Orders Orders - TAY HUYNH NP Procedure Category Date Status Time * Telephone Order Dispatcher CONS 08/18/24 Transmitted Consult Date of Service: Aug 19, 2024 Billing Provider: TAY HUYNH NP Common Visit Codes: [id number] INP/OBS CARE(HIGH) TAY HUYNH NP Aug 19, 2024 12:01
--- NOTE | 2024-08-19 15:51 | DVH ---
EXAM: XY R FOOT 3 VIEW XRAY CLINICAL INDICATION: Calcaneus pain. ? metastatic disease TECHNIQUE: XY R FOOT 3 VIEW XRAY Comparison: None FINDINGS/IMPRESSION: There is no evidence of acute fracture or dislocation. MRI recommended if there is high clinical suspicion for metastases. The alignment is anatomical. There is no radiopaque foreign body. Diffuse soft tissue swelling.
[2024-08-20] VITALS (8 sets, daily range): BP systolic 101–124; BP diastolic 59–71; PULSE 83–107; RESP 15–18; TEMP 98–98.4; O2SAT 91–100
--- NOTE | 2024-08-20 10:32 | DVHPN2 ---
Subjective Patient reports having cough, generalized weakness Reviewed: Care Plan, H&P, Labs, Medications Changes from previous H/P or p: No Changes General: Per HPI Objective Vitals Vital Signs Date Time Temp Pulse Resp B/P (MAP) Pulse Ox O2 Delivery O2 Flow Rate FiO2 08/20/24 08:53 98.1 91 18 102/62 (75) 98 98.1 08/19/24 20:00 Nasal Cannula* 1 24 Intake/Output Intake and Output 08/20/24 07:00 Intake Total 1500 ml Output Total 1050 ml Balance 450 ml Intake Oral 1200 ml IV Total 300 ml Output Urine Total 1050 ml General Appearance: Alert, Oriented X3, Cooperative, mild distress HEENT: Atraumatic, PERRLA Cardiovascular: Normal S1, Normal S2, Other (Sinus tachycardia) Abdomen: Normal bowel sounds, Other (Distended abdomen,? Ascites) Musculoskeletal: Normal sensory function, Normal motor function Neuro: Normal gait, Normal speech, Cranial nerves 3-12 NL Skin: Dry, Intact Psych/Mental Status: Mental status NL, Mood NL Medications Current Medications Medications Dose Ordered Sig/Lachelle Route Start Time Stop Time Status Last Admin Dose Admin Ceftriaxone Sodium 50 ml @ 100 mls/hr DAILY@09 IV 08/13/24 09:00 08/20/24 09:28 100 MLS/HR Ondansetron HCl 4 mg Q4HP PRN IV 08/13/24 00:15 Nitroglycerin 0.4 mg Q5MINP PRN SL 08/13/24 00:15 Morphine Sulfate 2 mg Q30M PRN IV 08/13/24 00:15 Apixaban 5 mg BID PO 08/13/24 10:00 08/20/24 09:27 5 MG Levothyroxine Sodium 75 mcg QAM@0600 PO 08/14/24 06:00 08/20/24 06:14 75 MCG Azithromycin 250 ml @ 125 mls/hr DAILY IV 08/13/24 12:00 08/20/24 09:28 125 MLS/HR Polyethylene Glycol 17 gm DAILYPRN PRN PO 08/13/24 12:15 Pantoprazole Sodium 40 mg BID@0700,1700 PO 08/15/24 17:00 08/20/24 06:29 40 MG Oxycodone HCl 5 mg Q6HP PRN PO 08/17/24 12:45 08/19/24 23:10 5 MG Propranolol HCl 20 mg TID PO 08/17/24 14:00 08/19/24 23:12 20 MG Furosemide 40 mg BIDD IV 08/17/24 18:00 08/20/24 06:26 40 MG Laboratory Results Laboratory Tests 08/18/24 05:52 Urinalysis Test 08/12/24 18:58 08/14/24 17:40 Urine Mucus Few (None Seen) Urine Color Yellow (Yellow) Urine Clarity Clear (Clear) Urine pH 6.0 (5.0-9.0) Urine Specific [place] 1.016 (1.001-1.035) Urine Protein Trace (Negative) H Urine Ketones Negative (Negative) Urine Blood 2+ /uL (Negative) H Urine Nitrite Negative (Negative) Urine Bilirubin 1+ (Negative) H Urine Urobilinogen 8 mg/dL (Negative) H Urine Leukocyte Esterase 1+ /uL (Negative) Urine RBC 71 /hpf (0 - 4) Urine Microscopic WBC 28 /HPF (0-5) H Urine Squamous Epithelial Cells None seen /hpf (<5) Urine Bacteria None seen /hpf (None Seen) Urine Osmolality 471 mOsm/kg Urine Creatinine 32.90 mg/dL (30.0-125.0) Urine Protein/Creatinine Ratio 1.02 Urine Sodium 11 mmol/L (40-220) L Urine Glucose Normal mg/dL (Normal) Urine Total Protein 33.6 mg/dL (1-14) H Microbiology Microbiology Date/Time Source Procedure Growth Status 08/12/24 18:36 Blood Blood Culture - Final NO GROWTH AFTER 5 DAYS OF INCUBATION. Complete Labs and/or images reviewed: Labs reviewed by me, Image(s) reviewed by me Assessment/Plan Assessment/Plan Impression: -acute on chronic hypoxic respiratory failure -hepatic carcinoma with chemotherapy , metastatic disease -constipation -atelectasis -hypothyroidism -primary hypertension -dehydration with azotemia -probable community-acquired pneumonia Gram-positive/Gram-negative etiology -hyponatremia Plan: Events: Patient was more lucid, alert and oriented x4 now. Patient continues to have lower back pain, right foot pain. Long discussion made with the patient regarding her expectations with care. Apparently, her oncologist states that with treatment her estimated length of survival is 18 months. I myself discussed with the patient that the chemotherapy is wet brought her to the hospital on this particular visit. She states that she wants all care to be continued including chemotherapy. I will discuss with the daughter again regarding plan of care. Patient was still has not been able to ambulate. -nephrology consultation: Recommendations reviewed -increase levothyroxine -incentive spirometer -continue Rocephin, add azithromycin -continue propranolol Repeat labs in a.m.. Total time spent with patient discussing and formulating plan of care: 35 minutes. This medical document was created using an electronic medical record system with [employer] dictation system. Although this document has been carefully reviewed, there may still be some phonetic and typographical errors. These areas are purely typographical due to imperfections of the software programs, and do not reflect any compromise in the patient's medical care. Plan discussed with: Patient, Daughter, Other (RN) My Orders Orders - TAY HUYNH NP Procedure Category Date Status Time R Foot 3 View Xray XY 08/19/24 Resulted 12:02 Cover Wound With Foam JENNIFER 08/19/24 In Process Dressing 17:58 Date of Service: Aug 20, 2024 Billing Provider: TAY HUYNH NP Common Visit Codes: [id number] INP/OBS CARE(HIGH) TAY HUYNH NP Aug 20, 2024 10:32
[2024-08-20 11:26] LABS: Anion Gap 5 (5-15); Carbon Dioxide 30 mmol/L (20-31); Potassium 3.7 mmol/L (3.5-5.1)
[2024-08-20 11:29] LABS: Basophils # (auto) 0 10 ^3/uL (0-0.2); Basophils % (auto) 0.3 % (0.0-2.0); Eosinophils # (auto) 0.1 10 ^3/uL (0-0.8); Eosinophils % (auto) 1.9 % (0.0-7.0); Hemoglobin 8.5 g/dL (12.2-16.2); Lymphocytes # (auto) 0.3 10 ^3/uL (0.4-5.4); Lymphocytes % (auto) 10.4 % (10.0-50.0); Mean Corpuscular Hemoglobin 30.8 pg (28.0-32.0); Mean Corpuscular Volume 90.5 fL (80.0-100.0); Monocytes # (auto) 0.4 10 ^3/uL (0-1.3); Monocytes % (auto) 13.3 % (0.0-12.0); Neutrophils # (auto) 1.9 10 ^3/uL (1.6-8.6); Neutrophils % (auto) 74.1 % (37.0-80.0); Nucleated Red Blood Cells % 0.1 %; Platelet Count (auto) 240 10^3/uL (140-450); Red Blood Cells 2.76 10^6/uL (4.0-5.20); Red Cell Distribution Width 18.4 % (11.8-14.3); White Blood Cell 2.6 10^3/uL (4.4-10.8)
[2024-08-20 11:32] LABS: BUN/Creatinine Ratio 62.5 (10.0-20.0)
[2024-08-20 11:35] LABS: Blood Urea Nitrogen 25 mg/dL (9-23); Calcium 8.2 mg/dL (8.7-10.4); Chloride 94 mmol/L (98-107); Glucose 128 mg/dL (74-106); Sodium 129 mmol/L (136-145)
--- NOTE | 2024-08-20 14:15 | DVHPN2 ---
Progress Note Date Seen: Aug 20, 2024 Medical Necessity Reason Pt with a Central, PICC or Fol: Yes The following are medically ne: Shaw Catheter Objective vital signs Vital Sign Date Time Temp Pulse Resp B/P (MAP) Pulse Ox O2 Delivery O2 Flow Rate FiO2 08/20/24 13:00 98.2 95 114/71 (85) 98 98.2 08/20/24 08:53 18 08/20/24 08:00 Nasal Cannula* 1 24 Total Intake and Output 08/19/24 08/19/24 08/20/24 15:00 23:00 07:00 Intake Total 300 ml 800 ml 400 ml Output Total 1050 ml Balance 300 ml 800 ml -650 ml medications Current Medications Medications Dose Ordered Sig/Lachelle Route Start Time Stop Time Status Last Admin Dose Admin Ceftriaxone Sodium 50 ml @ 100 mls/hr DAILY@09 IV 08/13/24 09:00 08/20/24 09:28 100 MLS/HR Ondansetron HCl 4 mg Q4HP PRN IV 08/13/24 00:15 Nitroglycerin 0.4 mg Q5MINP PRN SL 08/13/24 00:15 Morphine Sulfate 2 mg Q30M PRN IV 08/13/24 00:15 Apixaban 5 mg BID PO 08/13/24 10:00 08/20/24 09:27 5 MG Levothyroxine Sodium 75 mcg QAM@0600 PO 08/14/24 06:00 08/20/24 06:14 75 MCG Azithromycin 250 ml @ 125 mls/hr DAILY IV 08/13/24 12:00 08/20/24 09:28 125 MLS/HR Polyethylene Glycol 17 gm DAILYPRN PRN PO 08/13/24 12:15 Pantoprazole Sodium 40 mg BID@0700,1700 PO 08/15/24 17:00 08/20/24 06:29 40 MG Oxycodone HCl 5 mg Q6HP PRN PO 08/17/24 12:45 08/20/24 12:36 5 MG Propranolol HCl 20 mg TID PO 08/17/24 14:00 08/19/24 23:12 20 MG Furosemide 40 mg BIDD IV 08/17/24 18:00 08/20/24 06:26 40 MG Examination: GENERAL:Normal, CVS:Normal, SKIN:Normal laboratory and microbiology Laboratory Tests 08/20/24 11:00 Test 08/20/24 11:00 Range/Units Serum Glucose 128 H 74-106 mg/dL Microbiology Date/Time Source Procedure Growth Status 08/12/24 18:36 Blood Blood Culture - Final NO GROWTH AFTER 5 DAYS OF INCUBATION. Complete Problem List/Assessment/Plan Problem List/Assessment/Plan Hyponatremia due to excess H2O Hyperkalemia resolved Hepatic encephalopathy Liver cirrhosis Hepatocellular carcinoma Hypoalbuminemia Normal kidney function Anemia due To blood loss GI bleeding continue lasix q12hr at increased dose strict I/O fluid restrict 1L Lactulose GI Plan discussed with: Patient Dietary Evaluation Review Comments: 1) Continue current plan of care 2) Consider 2gm Na diet if ammonia is WNL 3) Ensure enlive 240ml BID Expected Outcomes/Goals: Pt will meet 75% estimated needs Fu 3-5 days IAN RAO MD Aug 20, 2024 14:15
[2024-08-21] VITALS (8 sets, daily range): BP systolic 98–115; BP diastolic 56–71; PULSE 87–98; RESP 18–20; TEMP 97.8–98.3; O2SAT 93–100
--- NOTE | 2024-08-21 13:30 | DVHPN2 ---
Progress Note Date Seen: Aug 21, 2024 Medical Necessity Reason Pt with a Central, PICC or Fol: Yes The following are medically ne: Shaw Catheter Subjective Patient reports: No new complaints, Feels better Objective vital signs Vital Sign Date Time Temp Pulse Resp B/P (MAP) Pulse Ox O2 Delivery O2 Flow Rate FiO2 08/21/24 09:00 98.1 87 18 107/58 (74) 100 98.1 08/21/24 08:00 Room Air* 0 21 Total Intake and Output 08/20/24 08/20/24 08/21/24 15:00 23:00 07:00 Intake Total 50 ml 545 ml 450 ml Output Total 950 ml 600 ml Balance 50 ml -405 ml -150 ml medications Current Medications Medications Dose Ordered Sig/Lachelle Route Start Time Stop Time Status Last Admin Dose Admin Ceftriaxone Sodium 50 ml @ 100 mls/hr DAILY@09 IV 08/13/24 09:00 08/21/24 09:32 100 MLS/HR Ondansetron HCl 4 mg Q4HP PRN IV 08/13/24 00:15 Nitroglycerin 0.4 mg Q5MINP PRN SL 08/13/24 00:15 Morphine Sulfate 2 mg Q30M PRN IV 08/13/24 00:15 Apixaban 5 mg BID PO 08/13/24 10:00 08/21/24 09:22 5 MG Levothyroxine Sodium 75 mcg QAM@0600 PO 08/14/24 06:00 08/21/24 05:19 75 MCG Azithromycin 250 ml @ 125 mls/hr DAILY IV 08/13/24 12:00 08/21/24 10:30 125 MLS/HR Polyethylene Glycol 17 gm DAILYPRN PRN PO 08/13/24 12:15 Pantoprazole Sodium 40 mg BID@0700,1700 PO 08/15/24 17:00 08/21/24 06:45 40 MG Oxycodone HCl 5 mg Q6HP PRN PO 08/17/24 12:45 08/21/24 09:28 5 MG Propranolol HCl 20 mg TID PO 08/17/24 14:00 08/21/24 06:00 20 MG Furosemide 40 mg BIDD IV 08/17/24 18:00 08/21/24 05:19 40 MG Examination Gen: Patient appears stated age, no acute distress noted Pulm: Bilateral air entry, no rales CVS: RRR, normal S1 and S2 Ext: No edema Neuro: Alert and oriented x 4 laboratory and microbiology Laboratory Tests 08/20/24 11:00 Test 08/20/24 11:00 Range/Units Serum Glucose 128 H 74-106 mg/dL Microbiology Date/Time Source Procedure Growth Status 08/12/24 18:36 Blood Blood Culture - Final NO GROWTH AFTER 5 DAYS OF INCUBATION. Complete Problem List/Assessment/Plan Problem List/Assessment/Plan Hyponatremia due to excess H2O- improving 08/20 Na 129 Hyperkalemia- resolved Hepatic encephalopathy Liver cirrhosis Hepatocellular carcinoma Hypoalbuminemia Normal kidney function-eGFR 103 Anemia due To blood loss GI bleeding REC Serial chemistry panels May continue lasix Strict I/O Continue fluid restrict 1L/24hr GI to follow Plan discussed with: Patient, Daughter Dietary Evaluation Review Comments: 1) Continue current plan of care 2) Consider 2gm Na diet if ammonia is WNL 3) Ensure enlive 240ml BID Expected Outcomes/Goals: Pt will meet 75% estimated needs Fu 3-5 days DARYA INGRAM Aug 21, 2024 13:30
--- NOTE | 2024-08-21 14:09 | DVHPN2 ---
Subjective Patient reports having cough, generalized weakness Reviewed: Care Plan, H&P, Labs, Medications Changes from previous H/P or p: No Changes General: Per HPI Objective Vitals Vital Signs Date Time Temp Pulse Resp B/P (MAP) Pulse Ox O2 Delivery O2 Flow Rate FiO2 08/21/24 09:00 98.1 87 18 107/58 (74) 100 98.1 08/21/24 08:00 Room Air* 0 21 Intake/Output Intake and Output 08/21/24 07:00 Intake Total 1045 ml Output Total 1550 ml Balance -505 ml Intake Oral 995 ml IV Total 50 ml Output Urine Total 1500 ml Stool Total 50 ml # Bowel Movements 2 General Appearance: Alert, Oriented X3, Cooperative, mild distress HEENT: Atraumatic, PERRLA Cardiovascular: Normal S1, Normal S2, Other (Sinus tachycardia) Abdomen: Normal bowel sounds, Other (Distended abdomen,? Ascites) Musculoskeletal: Normal sensory function, Normal motor function Neuro: Normal gait, Normal speech, Cranial nerves 3-12 NL Skin: Dry, Intact Psych/Mental Status: Mental status NL, Mood NL Medications Current Medications Medications Dose Ordered Sig/Lachelle Route Start Time Stop Time Status Last Admin Dose Admin Ceftriaxone Sodium 50 ml @ 100 mls/hr DAILY@09 IV 08/13/24 09:00 08/21/24 09:32 100 MLS/HR Ondansetron HCl 4 mg Q4HP PRN IV 08/13/24 00:15 Nitroglycerin 0.4 mg Q5MINP PRN SL 08/13/24 00:15 Morphine Sulfate 2 mg Q30M PRN IV 08/13/24 00:15 Apixaban 5 mg BID PO 08/13/24 10:00 08/21/24 09:22 5 MG Levothyroxine Sodium 75 mcg QAM@0600 PO 08/14/24 06:00 08/21/24 05:19 75 MCG Azithromycin 250 ml @ 125 mls/hr DAILY IV 08/13/24 12:00 08/21/24 10:30 125 MLS/HR Polyethylene Glycol 17 gm DAILYPRN PRN PO 08/13/24 12:15 Pantoprazole Sodium 40 mg BID@0700,1700 PO 08/15/24 17:00 08/21/24 06:45 40 MG Oxycodone HCl 5 mg Q6HP PRN PO 08/17/24 12:45 08/21/24 09:28 5 MG Propranolol HCl 20 mg TID PO 08/17/24 14:00 08/21/24 06:00 20 MG Furosemide 40 mg BIDD IV 08/17/24 18:00 08/21/24 05:19 40 MG Laboratory Results Laboratory Tests 08/20/24 11:00 Urinalysis Test 08/12/24 18:58 08/14/24 17:40 Urine Mucus Few (None Seen) Urine Color Yellow (Yellow) Urine Clarity Clear (Clear) Urine pH 6.0 (5.0-9.0) Urine Specific [place] 1.016 (1.001-1.035) Urine Protein Trace (Negative) H Urine Ketones Negative (Negative) Urine Blood 2+ /uL (Negative) H Urine Nitrite Negative (Negative) Urine Bilirubin 1+ (Negative) H Urine Urobilinogen 8 mg/dL (Negative) H Urine Leukocyte Esterase 1+ /uL (Negative) Urine RBC 71 /hpf (0 - 4) Urine Microscopic WBC 28 /HPF (0-5) H Urine Squamous Epithelial Cells None seen /hpf (<5) Urine Bacteria None seen /hpf (None Seen) Urine Osmolality 471 mOsm/kg Urine Creatinine 32.90 mg/dL (30.0-125.0) Urine Protein/Creatinine Ratio 1.02 Urine Sodium 11 mmol/L (40-220) L Urine Glucose Normal mg/dL (Normal) Urine Total Protein 33.6 mg/dL (1-14) H Microbiology Microbiology Date/Time Source Procedure Growth Status 08/12/24 18:36 Blood Blood Culture - Final NO GROWTH AFTER 5 DAYS OF INCUBATION. Complete Labs and/or images reviewed: Labs reviewed by me, Image(s) reviewed by me Assessment/Plan Assessment/Plan Impression: -acute on chronic hypoxic respiratory failure -hepatic carcinoma with chemotherapy , metastatic disease -constipation -atelectasis -hypothyroidism -primary hypertension -dehydration with azotemia -probable community-acquired pneumonia Gram-positive/Gram-negative etiology -hyponatremia Plan: Events: Patient more alert today. Assessed sitting on the chair. Continues to complain of lumbar spinal pain. Not ambulating, able to transfer. -L-spine CT to rule out metastatic disease -lidocaine patch to lower back -nephrology consultation: Recommendations reviewed -increase levothyroxine -incentive spirometer -continue Rocephin, azithromycin -continue propranolol Repeat labs in a.m.. Total time spent with patient discussing and formulating plan of care: 35 minutes. This medical document was created using an electronic medical record system with [employer] dictation system. Although this document has been carefully reviewed, there may still be some phonetic and typographical errors. These areas are purely typographical due to imperfections of the software programs, and do not reflect any compromise in the patient's medical care. Plan discussed with: Patient, Daughter, Other (RN) My Orders Orders - TAY HUYNH NP Procedure Category Date Status Time Ls Spine Wo Contrast CT 08/21/24 Verified 14:03 Date of Service: Aug 21, 2024 Billing Provider: TAY HUYNH NP Common Visit Codes: [id number] INP/OBS CARE(HIGH) TAY HUYNH NP Aug 21, 2024 14:09
--- NOTE | 2024-08-21 19:40 | DVH ---
CT LS SPINE WO CONTRAST INDICATION: metastatic disease to L spine : 74 old Female metastatic disease to L spine EXAM DATE: 08/21/2024 04:28 PM COMPARISON: CT abdomen and pelvis 08/13/2023 RADIATION DOSE: CTDIvol: 31.39 mGy, DLP: 999.81 mGy*cm Technique: Utilizing the CT scanner, contiguous axial scans were obtained through the lumbar spine. C oronal and sagittal reformatted images were then generated. All CT scans at this medical facility are performed using dose modulation techniques as appropriate t o a performed exam including the following: Automated exposure control was utilized; adjustment of th e MA and/or KV according to patient size; and use of iterative reconstruction technique. FINDINGS: 5 [id number] lumbar-type vertebrae. Normal alignment of the lumbar spine. Diffuse demineralizat ion. Multilevel endplate degenerative marrow signal. Minimal chronic loss of superior vertebral body height of L1, L3, L4 and L5. Vacuum disc phenomenon from L2-L3 to L5-S1. Grade 1 anterolisthesis of L4 on L5. T12-L1: Minimal posterior disc bulge without significant spinal canal or neural foramina stenosis. L1-L2: Minimal posterior disc bulge without significant spinal canal or neural foramina stenosis. L2-L3: Posterior disc bulge with ligamentum flavum hypertrophy causing severe spinal canal stenosis w ith moderate left-sided neural foramina stenosis. L3-L4: Posterior disc bulge with ligamentum flavum hypertrophy causing severe spinal canal stenosis w ith moderate bilateral neural foramina stenosis. L5-S1: Posterior disc osteophyte complex causing severe spinal canal stenosis with severe bilateral n eural foramina stenosis. Posterior disc bulge causing mild spinal canal stenosis with severe right and moderate to severe left -sided neural foramina stenosis. The paraspinal muscles unremarkable. Partially visualized mild ascites. 4.8 cm left adrenal nodule with 3.8 cm right adrenal nodule. Nonob structing bilateral renal calculi. Horseshoe kidney is noted. Uterine calcifications are noted. IMPRESSION: Multilevel severe degenerative changes of the lumbar spine as detailed above. MRI may be considered f or further evaluation. Acute/ subacute left-sided sacral ala fracture. Acute /subacute comminuted left-sided inferior pubic ramus fracture when correlated with CT abdomen and pelvis of 08/12/2024. Partially visualized mild ascites. 4.8 cm left adrenal nodule with 3.8 cm right adrenal nodule.
[2024-08-22] VITALS (7 sets, daily range): BP systolic 91–137; BP diastolic 49–78; PULSE 96–101; RESP 17–18; TEMP 97.8–98.2; O2SAT 93–97
[2024-08-22 07:04] LABS: Anion Gap 6 (5-15); Carbon Dioxide 29 mmol/L (20-31); Potassium 3.6 mmol/L (3.5-5.1)
[2024-08-22 07:09] LABS: Glucose 84 mg/dL (74-106)
[2024-08-22 07:10] LABS: BUN/Creatinine Ratio 45.7 (10.0-20.0); Blood Urea Nitrogen 16 mg/dL (9-23)
[2024-08-22 07:17] LABS: Calcium 8.2 mg/dL (8.7-10.4); Chloride 95 mmol/L (98-107); Sodium 130 mmol/L (136-145)
[2024-08-22] MEDS: LIDOCAINE 5% TOPICAL PATCH TOP SCH (09:38)
--- NOTE | 2024-08-22 13:15 | DVHPN2 ---
Subjective The patient is seen and examined at bedside. Still complain of shortness for breath and weakness Reviewed: Care Plan, H&P, Labs, Medications Changes from previous H/P or p: No Changes General: Per HPI Objective Vitals Vital Signs Date Time Temp Pulse Resp B/P (MAP) Pulse Ox O2 Delivery O2 Flow Rate FiO2 08/22/24 09:30 97.9 98 18 120/73 (89) 95 97.9 08/22/24 08:00 Room Air* 0 21 Intake/Output Intake and Output 08/22/24 07:00 Intake Total 1320 ml Output Total 1450 ml Balance -130 ml Intake Oral 1020 ml IV Total 300 ml Output Urine Total 1450 ml General Appearance: Alert, Oriented X3, Cooperative, mild distress HEENT: Atraumatic, PERRLA Cardiovascular: Normal S1, Normal S2, Other (Sinus tachycardia) Abdomen: Normal bowel sounds, Other (Distended abdomen,? Ascites) Musculoskeletal: Normal sensory function, Normal motor function Neuro: Normal gait, Normal speech, Cranial nerves 3-12 NL Skin: Dry, Intact Psych/Mental Status: Mental status NL, Mood NL Medications Current Medications Medications Dose Ordered Sig/Lachelle Route Start Time Stop Time Status Last Admin Dose Admin Ceftriaxone Sodium 50 ml @ 100 mls/hr DAILY@09 IV 08/13/24 09:00 08/22/24 09:33 100 MLS/HR Ondansetron HCl 4 mg Q4HP PRN IV 08/13/24 00:15 Nitroglycerin 0.4 mg Q5MINP PRN SL 08/13/24 00:15 Morphine Sulfate 2 mg Q30M PRN IV 08/13/24 00:15 Apixaban 5 mg BID PO 08/13/24 10:00 08/22/24 09:33 5 MG Levothyroxine Sodium 75 mcg QAM@0600 PO 08/14/24 06:00 08/22/24 05:46 75 MCG Polyethylene Glycol 17 gm DAILYPRN PRN PO 08/13/24 12:15 Pantoprazole Sodium 40 mg BID@0700,1700 PO 08/15/24 17:00 08/22/24 05:46 40 MG Oxycodone HCl 5 mg Q6HP PRN PO 08/17/24 12:45 08/22/24 09:34 5 MG Propranolol HCl 20 mg TID PO 08/17/24 14:00 08/21/24 06:00 20 MG Furosemide 40 mg BIDD IV 08/17/24 18:00 08/21/24 18:38 40 MG Lidocaine 1 patch DAILY TOP 08/22/24 10:00 08/22/24 09:38 1 PATCH Laboratory Results Laboratory Tests 08/20/24 11:00 08/22/24 06:34 Chemistry Test 08/22/24 06:34 Calcium Level 8.2 mg/dL (8.7-10.4) L Urinalysis Test 08/12/24 18:58 08/14/24 17:40 Urine Mucus Few (None Seen) Urine Color Yellow (Yellow) Urine Clarity Clear (Clear) Urine pH 6.0 (5.0-9.0) Urine Specific [place] 1.016 (1.001-1.035) Urine Protein Trace (Negative) H Urine Ketones Negative (Negative) Urine Blood 2+ /uL (Negative) H Urine Nitrite Negative (Negative) Urine Bilirubin 1+ (Negative) H Urine Urobilinogen 8 mg/dL (Negative) H Urine Leukocyte Esterase 1+ /uL (Negative) Urine RBC 71 /hpf (0 - 4) Urine Microscopic WBC 28 /HPF (0-5) H Urine Squamous Epithelial Cells None seen /hpf (<5) Urine Bacteria None seen /hpf (None Seen) Urine Osmolality 471 mOsm/kg Urine Creatinine 32.90 mg/dL (30.0-125.0) Urine Protein/Creatinine Ratio 1.02 Urine Sodium 11 mmol/L (40-220) L Urine Glucose Normal mg/dL (Normal) Urine Total Protein 33.6 mg/dL (1-14) H Microbiology Microbiology Date/Time Source Procedure Growth Status 08/12/24 18:36 Blood Blood Culture - Final NO GROWTH AFTER 5 DAYS OF INCUBATION. Complete Labs and/or images reviewed: Labs reviewed by me Assessment/Plan Assessment/Plan -acute on chronic hypoxic respiratory failure -hepatic carcinoma with chemotherapy , metastatic disease -constipation -atelectasis -hypothyroidism -primary hypertension -dehydration with azotemia -probable community-acquired pneumonia Gram-positive/Gram-negative etiology -hyponatremia Plan: Patient more alert today. Assessed sitting on the chair. Continues to complain of lumbar spinal pain. Not ambulating, able to transfer. We will continuing physical therapy. -L-spine CT to rule out metastatic disease -lidocaine patch to lower back -nephrology consultation: Recommendations reviewed -increase levothyroxine -incentive spirometer -continue Rocephin, azithromycin -continue propranolol This medical document was created using an electronic medical record system with [employer] computerized dictation system. Although this document has been carefully reviewed, there may still be some phonetic and typographical errors. These areas are purely typographical due to imperfections of the software programs, and do not reflect any compromise in the patient's medical care. Plan discussed with: Patient Date of Service: Aug 22, 2024 Billing Provider: REYES RIVERA MD Common Visit Codes: [id number] INP/OBS CARE(HIGH) REYES RIVERA MD Aug 22, 2024 13:15
--- NOTE | 2024-08-22 14:12 | DVHPN2 ---
Progress Note Date Seen: Aug 22, 2024 Medical Necessity Reason Pt with a Central, PICC or Fol: Yes The following are medically ne: Shaw Catheter Subjective Patient reports: No new complaints, Feels better Objective vital signs Vital Sign Date Time Temp Pulse Resp B/P (MAP) Pulse Ox O2 Delivery O2 Flow Rate FiO2 08/22/24 09:30 97.9 98 18 120/73 (89) 95 97.9 08/22/24 08:00 Room Air* 0 21 Total Intake and Output 08/21/24 08/21/24 08/22/24 15:00 23:00 07:00 Intake Total 920 ml 400 ml Output Total 600 ml 850 ml Balance 320 ml -450 ml medications Current Medications Medications Dose Ordered Sig/Lachelle Route Start Time Stop Time Status Last Admin Dose Admin Ceftriaxone Sodium 50 ml @ 100 mls/hr DAILY@09 IV 08/13/24 09:00 08/22/24 09:33 100 MLS/HR Ondansetron HCl 4 mg Q4HP PRN IV 08/13/24 00:15 Nitroglycerin 0.4 mg Q5MINP PRN SL 08/13/24 00:15 Morphine Sulfate 2 mg Q30M PRN IV 08/13/24 00:15 Apixaban 5 mg BID PO 08/13/24 10:00 08/22/24 09:33 5 MG Levothyroxine Sodium 75 mcg QAM@0600 PO 08/14/24 06:00 08/22/24 05:46 75 MCG Polyethylene Glycol 17 gm DAILYPRN PRN PO 08/13/24 12:15 Pantoprazole Sodium 40 mg BID@0700,1700 PO 08/15/24 17:00 08/22/24 05:46 40 MG Oxycodone HCl 5 mg Q6HP PRN PO 08/17/24 12:45 08/22/24 09:34 5 MG Propranolol HCl 20 mg TID PO 08/17/24 14:00 08/21/24 06:00 20 MG Furosemide 40 mg BIDD IV 08/17/24 18:00 08/21/24 18:38 40 MG Lidocaine 1 patch DAILY TOP 08/22/24 10:00 08/22/24 09:38 1 PATCH Examination Gen: Patient appears stated age, no acute distress noted Pulm: Bilateral air entry, no rales CVS: RRR, normal S1 and S2 Ext: No edema Neuro: Alert and oriented x 4 laboratory and microbiology Laboratory Tests 08/22/24 06:34 08/20/24 11:00 Test 08/22/24 06:34 Range/Units Serum Glucose 84 74-106 mg/dL Microbiology Date/Time Source Procedure Growth Status 08/12/24 18:36 Blood Blood Culture - Final NO GROWTH AFTER 5 DAYS OF INCUBATION. Complete Labs and/or images reviewed: Labs reviewed by me Problem List/Assessment/Plan Problem List/Assessment/Plan Hyponatremia due to excess H2O- improving 08/22 Na 130 Hyperkalemia- resolved Hepatic encephalopathy Liver cirrhosis Hepatocellular carcinoma Hypoalbuminemia Normal kidney function-eGFR 106 Anemia due To blood loss GI bleeding REC BMP May continue lasix Strict I&O's Continue fluid restrict 1L/24hr GI to follow Will continue to follow Plan discussed with: Patient Dietary Evaluation Review Comments: 1) Continue current plan of care 2) Consider 2gm Na diet if ammonia is WNL 3) Ensure enlive 240ml BID Expected Outcomes/Goals: Pt will meet 75% estimated needs Fu 3-5 days DARYA INGRAM Aug 22, 2024 14:12
[2024-08-22] MEDS: POLYETHYLENE GLYCOL 17 GM PWDR PO PRN (16:18)
[2024-08-23] VITALS (8 sets, daily range): BP systolic 102–124; BP diastolic 58–69; PULSE 67–93; RESP 16–18; TEMP 98–98.3; O2SAT 95–97
[2024-08-23 06:23] LABS: Potassium 3.7 mmol/L (3.5-5.1)
[2024-08-23 06:24] LABS: Anion Gap 5 (5-15); Carbon Dioxide 30 mmol/L (20-31)
[2024-08-23 06:26] LABS: Calcium 8.3 mg/dL (8.7-10.4); Chloride 94 mmol/L (98-107); Sodium 129 mmol/L (136-145)
[2024-08-23 06:29] LABS: BUN/Creatinine Ratio 34.3 (10.0-20.0); Blood Urea Nitrogen 12 mg/dL (9-23); Glucose 83 mg/dL (74-106)
--- NOTE | 2024-08-23 15:02 | DVHPN2 ---
Progress Note Date Seen: Aug 23, 2024 Medical Necessity Reason Pt with a Central, PICC or Fol: Yes The following are medically ne: Shaw Catheter Subjective Patient reports: No new complaints, Feels better Objective vital signs Vital Sign Date Time Temp Pulse Resp B/P (MAP) Pulse Ox O2 Delivery O2 Flow Rate FiO2 08/23/24 13:01 98.0 93 18 124/68 (86) 97 98.0 08/23/24 08:00 Room Air* 0 21 Total Intake and Output 08/22/24 08/22/24 08/23/24 15:00 23:00 07:00 Intake Total 50 ml 525 ml 200 ml Output Total 450 ml 300 ml Balance 50 ml 75 ml -100 ml medications Current Medications Medications Dose Ordered Sig/Lachelle Route Start Time Stop Time Status Last Admin Dose Admin Ceftriaxone Sodium 50 ml @ 100 mls/hr DAILY@09 IV 08/13/24 09:00 08/23/24 09:27 100 MLS/HR Ondansetron HCl 4 mg Q4HP PRN IV 08/13/24 00:15 Nitroglycerin 0.4 mg Q5MINP PRN SL 08/13/24 00:15 Morphine Sulfate 2 mg Q30M PRN IV 08/13/24 00:15 Apixaban 5 mg BID PO 08/13/24 10:00 08/23/24 09:31 5 MG Levothyroxine Sodium 75 mcg QAM@0600 PO 08/14/24 06:00 08/23/24 05:46 75 MCG Polyethylene Glycol 17 gm DAILYPRN PRN PO 08/13/24 12:15 08/22/24 16:18 17 GM Pantoprazole Sodium 40 mg BID@0700,1700 PO 08/15/24 17:00 08/23/24 05:46 40 MG Oxycodone HCl 5 mg Q6HP PRN PO 08/17/24 12:45 08/23/24 12:43 5 MG Propranolol HCl 20 mg TID PO 08/17/24 14:00 08/23/24 05:46 20 MG Furosemide 40 mg BIDD IV 08/17/24 18:00 08/23/24 05:45 40 MG Lidocaine 1 patch DAILY TOP 08/22/24 10:00 08/23/24 09:31 1 PATCH Examination Gen: Patient appears stated age, no acute distress noted Pulm: Bilateral air entry, no rales CVS: RRR, normal S1 and S2 Ext: No edema Neuro: Alert and oriented x 4 laboratory and microbiology Laboratory Tests 08/23/24 05:53 08/20/24 11:00 Test 08/23/24 05:53 Range/Units Serum Glucose 83 74-106 mg/dL Microbiology Date/Time Source Procedure Growth Status 08/12/24 18:36 Blood Blood Culture - Final NO GROWTH AFTER 5 DAYS OF INCUBATION. Complete Labs and/or images reviewed: Labs reviewed by me Problem List/Assessment/Plan Problem List/Assessment/Plan Hyponatremia due to excess H2O- 08/23 Na 129 Hyperkalemia- resolved Hepatic encephalopathy Liver cirrhosis Hepatocellular carcinoma Hypoalbuminemia Normal kidney function-eGFR 106 Anemia due To blood loss GI bleeding REC Serial chemistry panels D/C lasix NaCl tablet po TID Strict I&O's Continue fluid restrict 1L/24hr GI to follow Will continue to follow Case discussed with Dr Ming Diana Plan discussed with: Patient, Daughter Dietary Evaluation Review Comments: 1) Continue current plan of care 2) Consider 2gm Na diet if ammonia is WNL 3) Ensure enlive 240ml BID Expected Outcomes/Goals: Pt will meet 75% estimated needs Fu 3-5 days DARYA INGRAM Aug 23, 2024 15:02
[2024-08-23] MEDS: SODIUM CHLORIDE 1 GM TAB PO SCH (21:55)
--- NOTE | 2024-08-23 22:58 | DVHPN2 ---
Subjective The patient is seen and examined at bedside. Still complain of shortness for breath Reviewed: Care Plan, H&P, Labs, Medications Changes from previous H/P or p: No Changes General: Per HPI Objective Vitals Vital Signs Date Time Temp Pulse Resp B/P (MAP) Pulse Ox O2 Delivery O2 Flow Rate FiO2 08/23/24 21:56 92 115/58 08/23/24 21:00 98.3 17 95 98.3 08/23/24 20:00 Room Air* 0 21 Intake/Output Intake and Output 08/23/24 07:00 Intake Total 775 ml Output Total 750 ml Balance 25 ml Intake Oral 725 ml IV Total 50 ml Output Urine Total 750 ml # Bowel Movements 1 General Appearance: Alert, Oriented X3, Cooperative, mild distress HEENT: Atraumatic, PERRLA Cardiovascular: Normal S1, Normal S2, Other (Sinus tachycardia) Abdomen: Normal bowel sounds, Other (Distended abdomen,? Ascites) Musculoskeletal: Normal sensory function, Normal motor function Neuro: Normal gait, Normal speech, Cranial nerves 3-12 NL Skin: Dry, Intact Psych/Mental Status: Mental status NL, Mood NL Medications Current Medications Medications Dose Ordered Sig/Lachelle Route Start Time Stop Time Status Last Admin Dose Admin Ceftriaxone Sodium 50 ml @ 100 mls/hr DAILY@09 IV 08/13/24 09:00 08/23/24 09:27 100 MLS/HR Ondansetron HCl 4 mg Q4HP PRN IV 08/13/24 00:15 Nitroglycerin 0.4 mg Q5MINP PRN SL 08/13/24 00:15 Morphine Sulfate 2 mg Q30M PRN IV 08/13/24 00:15 Apixaban 5 mg BID PO 08/13/24 10:00 08/23/24 21:55 5 MG Levothyroxine Sodium 75 mcg QAM@0600 PO 08/14/24 06:00 08/23/24 05:46 75 MCG Polyethylene Glycol 17 gm DAILYPRN PRN PO 08/13/24 12:15 08/23/24 19:14 17 GM Pantoprazole Sodium 40 mg BID@0700,1700 PO 08/15/24 17:00 08/23/24 18:03 40 MG Oxycodone HCl 5 mg Q6HP PRN PO 08/17/24 12:45 08/23/24 19:14 5 MG Propranolol HCl 20 mg TID PO 08/17/24 14:00 08/23/24 21:56 20 MG Lidocaine 1 patch DAILY TOP 08/22/24 10:00 08/23/24 09:31 1 PATCH Sodium Chloride 1 gm TID PO 08/23/24 22:00 08/23/24 21:55 1 GM Laboratory Results Laboratory Tests 08/20/24 11:00 08/23/24 05:53 Chemistry Test 08/23/24 05:53 Calcium Level 8.3 mg/dL (8.7-10.4) L Urinalysis Test 08/12/24 18:58 08/14/24 17:40 Urine Mucus Few (None Seen) Urine Color Yellow (Yellow) Urine Clarity Clear (Clear) Urine pH 6.0 (5.0-9.0) Urine Specific [place] 1.016 (1.001-1.035) Urine Protein Trace (Negative) H Urine Ketones Negative (Negative) Urine Blood 2+ /uL (Negative) H Urine Nitrite Negative (Negative) Urine Bilirubin 1+ (Negative) H Urine Urobilinogen 8 mg/dL (Negative) H Urine Leukocyte Esterase 1+ /uL (Negative) Urine RBC 71 /hpf (0 - 4) Urine Microscopic WBC 28 /HPF (0-5) H Urine Squamous Epithelial Cells None seen /hpf (<5) Urine Bacteria None seen /hpf (None Seen) Urine Osmolality 471 mOsm/kg Urine Creatinine 32.90 mg/dL (30.0-125.0) Urine Protein/Creatinine Ratio 1.02 Urine Sodium 11 mmol/L (40-220) L Urine Glucose Normal mg/dL (Normal) Urine Total Protein 33.6 mg/dL (1-14) H Microbiology Microbiology Date/Time Source Procedure Growth Status 08/12/24 18:36 Blood Blood Culture - Final NO GROWTH AFTER 5 DAYS OF INCUBATION. Complete Labs and/or images reviewed: Labs reviewed by me Assessment/Plan Assessment/Plan -acute on chronic hypoxic respiratory failure -hepatic carcinoma with chemotherapy , metastatic disease -constipation -atelectasis -hypothyroidism -primary hypertension -dehydration with azotemia -probable community-acquired pneumonia Gram-positive/Gram-negative etiology -hyponatremia Plan: Patient more alert today. Assessed sitting on the chair. Continues to complain of lumbar spinal pain. Not ambulating, able to transfer. Continuing physical therapy. -L-spine CT to rule out metastatic disease -lidocaine patch to lower back -nephrology consultation: Recommendations reviewed -increase levothyroxine -incentive spirometer -continue Rocephin, azithromycin -continue propranolol This medical document was created using an electronic medical record system with [employer] computerized dictation system. Although this document has been carefully reviewed, there may still be some phonetic and typographical errors. These areas are purely typographical due to imperfections of the software programs, and do not reflect any compromise in the patient's medical care. Plan discussed with: Patient My Orders Orders - REYES RIVERA MD Procedure Category Date Status Time Apply Barrier Cream JENNIFER 08/23/24 In Process 14:47 Date of Service: Aug 23, 2024 Billing Provider: REYES RIVERA MD Common Visit Codes: [id number] INP/OBS CARE(HIGH) REYES RIVERA MD Aug 23, 2024 22:58
[2024-08-24] VITALS (8 sets, daily range): BP systolic 103–119; BP diastolic 57–84; PULSE 83–89; RESP 16–18; TEMP 97.9–98.4; O2SAT 93–97
[2024-08-24 08:26] LABS: Anion Gap 6 (5-15); Carbon Dioxide 29 mmol/L (20-31); Potassium 3.6 mmol/L (3.5-5.1)
[2024-08-24 08:32] LABS: BUN/Creatinine Ratio 37.5 (10.0-20.0); Blood Urea Nitrogen 12 mg/dL (9-23); Glucose 83 mg/dL (74-106)
[2024-08-24 08:33] LABS: Calcium 8.3 mg/dL (8.7-10.4); Chloride 95 mmol/L (98-107); Sodium 130 mmol/L (136-145)
--- NOTE | 2024-08-24 10:44 | DVHPN2 ---
Progress Note Date Seen: Aug 24, 2024 Medical Necessity Reason Pt with a Central, PICC or Fol: Yes The following are medically ne: Shaw Catheter Subjective Patient reports: Feels better Objective vital signs Vital Sign Date Time Temp Pulse Resp B/P (MAP) Pulse Ox O2 Delivery O2 Flow Rate FiO2 08/24/24 08:00 84 16 96 Room Air* 0 21 08/24/24 05:20 114/69 08/24/24 05:00 98.0 98.0 Total Intake and Output 08/23/24 08/23/24 08/24/24 15:00 23:00 07:00 Intake Total 50 ml 575 ml 200 ml Output Total 900 ml 620 ml Balance 50 ml -325 ml -420 ml medications Current Medications Medications Dose Ordered Sig/Lachelle Route Start Time Stop Time Status Last Admin Dose Admin Ceftriaxone Sodium 50 ml @ 100 mls/hr DAILY@09 IV 08/13/24 09:00 08/24/24 10:08 100 MLS/HR Ondansetron HCl 4 mg Q4HP PRN IV 08/13/24 00:15 Nitroglycerin 0.4 mg Q5MINP PRN SL 08/13/24 00:15 Morphine Sulfate 2 mg Q30M PRN IV 08/13/24 00:15 Apixaban 5 mg BID PO 08/13/24 10:00 08/24/24 10:08 5 MG Levothyroxine Sodium 75 mcg QAM@0600 PO 08/14/24 06:00 08/24/24 05:20 75 MCG Polyethylene Glycol 17 gm DAILYPRN PRN PO 08/13/24 12:15 08/23/24 19:14 17 GM Pantoprazole Sodium 40 mg BID@0700,1700 PO 08/15/24 17:00 08/24/24 05:20 40 MG Oxycodone HCl 5 mg Q6HP PRN PO 08/17/24 12:45 08/24/24 10:12 5 MG Propranolol HCl 20 mg TID PO 08/17/24 14:00 08/24/24 05:20 20 MG Lidocaine 1 patch DAILY TOP 08/22/24 10:00 08/24/24 10:08 1 PATCH Sodium Chloride 1 gm TID PO 08/23/24 22:00 08/24/24 05:19 1 GM Examination: GENERAL:Normal, CVS:Normal laboratory and microbiology Laboratory Tests 08/24/24 07:26 08/20/24 11:00 Test 08/24/24 07:26 Range/Units Serum Glucose 83 74-106 mg/dL Microbiology Date/Time Source Procedure Growth Status 08/12/24 18:36 Blood Blood Culture - Final NO GROWTH AFTER 5 DAYS OF INCUBATION. Complete Problem List/Assessment/Plan Problem List/Assessment/Plan Hyponatremia due to excess H2O Hepatic encephalopathy Liver cirrhosis Hepatocellular carcinoma Hypoalbuminemia Normal kidney function Anemia due To blood loss GI bleeding lasix 40mg po daily, strict water restriction strict I/O fluid restrict 1L Lactulose GI Plan discussed with: Patient My Orders My Orders Orders - IAN RAO MD Procedure Category Date Status Time Furosemide Tablet PHA 08/25/24 Transmitted (Lasix Tablet) 10:00 Dietary Evaluation Review Comments: 1) Continue current plan of care 2) Consider 2gm Na diet if ammonia is WNL 3) Ensure enlive 240ml BID Expected Outcomes/Goals: Pt will meet 75% estimated needs Fu 3-5 days IAN RAO MD Aug 24, 2024 10:44
--- NOTE | 2024-08-24 13:01 | DVHPN2 ---
Subjective Patient continues to report having lower back pain Reviewed: Care Plan, H&P, Labs, Medications Changes from previous H/P or p: No Changes General: Per HPI Objective Vitals Vital Signs Date Time Temp Pulse Resp B/P (MAP) Pulse Ox O2 Delivery O2 Flow Rate FiO2 08/24/24 08:00 85 08/24/24 08:00 16 96 Room Air* 0 21 08/24/24 05:20 114/69 08/24/24 05:00 98.0 98.0 Intake/Output Intake and Output 08/24/24 07:00 Intake Total 825 ml Output Total 1520 ml Balance -695 ml Intake Oral 775 ml IV Total 50 ml Output Urine Total 1520 ml # Bowel Movements 1 General Appearance: Alert, Oriented X3, Cooperative, mild distress HEENT: Atraumatic, PERRLA Lungs: Clear to auscultation, Normal air movement Cardiovascular: Normal S1, Normal S2, Other (Sinus tachycardia) Abdomen: Normal bowel sounds, Other (Distended abdomen,? Ascites) Musculoskeletal: Normal sensory function, Normal motor function Neuro: Normal gait, Normal speech, Cranial nerves 3-12 NL Skin: Dry, Intact Psych/Mental Status: Mental status NL, Mood NL Medications Current Medications Medications Dose Ordered Sig/Lachelle Route Start Time Stop Time Status Last Admin Dose Admin Ceftriaxone Sodium 50 ml @ 100 mls/hr DAILY@09 IV 08/13/24 09:00 08/24/24 10:08 100 MLS/HR Ondansetron HCl 4 mg Q4HP PRN IV 08/13/24 00:15 Nitroglycerin 0.4 mg Q5MINP PRN SL 08/13/24 00:15 Morphine Sulfate 2 mg Q30M PRN IV 08/13/24 00:15 Apixaban 5 mg BID PO 08/13/24 10:00 08/24/24 10:08 5 MG Levothyroxine Sodium 75 mcg QAM@0600 PO 08/14/24 06:00 08/24/24 05:20 75 MCG Polyethylene Glycol 17 gm DAILYPRN PRN PO 08/13/24 12:15 08/23/24 19:14 17 GM Pantoprazole Sodium 40 mg BID@0700,1700 PO 08/15/24 17:00 08/24/24 05:20 40 MG Oxycodone HCl 5 mg Q6HP PRN PO 08/17/24 12:45 08/24/24 10:12 5 MG Propranolol HCl 20 mg TID PO 08/17/24 14:00 08/24/24 05:20 20 MG Lidocaine 1 patch DAILY TOP 08/22/24 10:00 08/24/24 10:08 1 PATCH Furosemide 40 mg DAILY PO 08/25/24 10:00 Laboratory Results Laboratory Tests 08/20/24 11:00 08/24/24 07:26 Chemistry Test 08/24/24 07:26 Calcium Level 8.3 mg/dL (8.7-10.4) L Urinalysis Test 08/12/24 18:58 08/14/24 17:40 Urine Mucus Few (None Seen) Urine Color Yellow (Yellow) Urine Clarity Clear (Clear) Urine pH 6.0 (5.0-9.0) Urine Specific [place] 1.016 (1.001-1.035) Urine Protein Trace (Negative) H Urine Ketones Negative (Negative) Urine Blood 2+ /uL (Negative) H Urine Nitrite Negative (Negative) Urine Bilirubin 1+ (Negative) H Urine Urobilinogen 8 mg/dL (Negative) H Urine Leukocyte Esterase 1+ /uL (Negative) Urine RBC 71 /hpf (0 - 4) Urine Microscopic WBC 28 /HPF (0-5) H Urine Squamous Epithelial Cells None seen /hpf (<5) Urine Bacteria None seen /hpf (None Seen) Urine Osmolality 471 mOsm/kg Urine Creatinine 32.90 mg/dL (30.0-125.0) Urine Protein/Creatinine Ratio 1.02 Urine Sodium 11 mmol/L (40-220) L Urine Glucose Normal mg/dL (Normal) Urine Total Protein 33.6 mg/dL (1-14) H Microbiology Microbiology Date/Time Source Procedure Growth Status 08/12/24 18:36 Blood Blood Culture - Final NO GROWTH AFTER 5 DAYS OF INCUBATION. Complete Labs and/or images reviewed: Labs reviewed by me, Image(s) reviewed by me Assessment/Plan Assessment/Plan Impression: -acute on chronic hypoxic respiratory failure -hepatic carcinoma with chemotherapy , metastatic disease -constipation -atelectasis -hypothyroidism -primary hypertension -dehydration with azotemia -probable community-acquired pneumonia Gram-positive/Gram-negative etiology -hyponatremia Plan: Events: No events overnight. CT scan of the lumbar spine results discussed with the patient and daughter. Long discussion made with patient and daughter regarding discharge planning. Offered both options of hospice care versus transitioning to intermediate facility for continued chemotherapy and rehab. -lidocaine patch to lower back -nephrology consultation: Recommendations reviewed -increase levothyroxine -incentive spirometer -continue Rocephin, azithromycin -continue propranolol -social service consultation for DC planning to intermediate facility for rehab. Repeat labs in a.m.. Total time spent with patient discussing and formulating plan of care: 35 minutes. Total time spent with patient and family regarding advance care plannin minutes. This medical document was created using an electronic medical record system with [employer] dictation system. Although this document has been carefully reviewed, there may still be some phonetic and typographical errors. These areas are purely typographical due to imperfections of the software programs, and do not reflect any compromise in the patient's medical care. Plan discussed with: Patient, Daughter, Other (RN) Date of Service: Aug 24, 2024 Billing Provider: TAY HUYNH NP Common Visit Codes: [id number] INP/OBS CARE(HIGH) Secondary Visit Codes: [id number] CARE PLAN 30 MINUTES TAY HUYNH NP Aug 24, 2024 13:01
[2024-08-25] VITALS (8 sets, daily range): BP systolic 104–118; BP diastolic 56–62; PULSE 75–99; RESP 16–20; TEMP 97.8–98.3; O2SAT 93–96
[2024-08-25 07:21] LABS: Anion Gap 5 (5-15); Carbon Dioxide 28 mmol/L (20-31); Potassium 3.9 mmol/L (3.5-5.1)
[2024-08-25 07:25] LABS: Glucose 84 mg/dL (74-106)
[2024-08-25 07:26] LABS: BUN/Creatinine Ratio 37.9 (10.0-20.0); Blood Urea Nitrogen 11 mg/dL (9-23)
[2024-08-25 07:28] LABS: Calcium 8.4 mg/dL (8.7-10.4); Chloride 94 mmol/L (98-107); Sodium 127 mmol/L (136-145)
--- NOTE | 2024-08-25 10:40 | DVHPN2 ---
Progress Note Date Seen: Aug 25, 2024 Medical Necessity Reason Pt with a Central, PICC or Fol: Yes The following are medically ne: Shaw Catheter Objective vital signs Vital Sign Date Time Temp Pulse Resp B/P (MAP) Pulse Ox O2 Delivery O2 Flow Rate FiO2 08/25/24 09:00 98.1 77 17 118/56 (76) 94 98.1 08/24/24 20:00 Room Air* 0 21 Total Intake and Output 08/24/24 08/24/24 08/25/24 15:00 23:00 07:00 Intake Total 50 ml 600 ml 100 ml Output Total 200 ml 350 ml Balance 50 ml 400 ml -250 ml medications Current Medications Medications Dose Ordered Sig/Lachelle Route Start Time Stop Time Status Last Admin Dose Admin Ceftriaxone Sodium 50 ml @ 100 mls/hr DAILY@09 IV 08/13/24 09:00 08/24/24 10:08 100 MLS/HR Ondansetron HCl 4 mg Q4HP PRN IV 08/13/24 00:15 Nitroglycerin 0.4 mg Q5MINP PRN SL 08/13/24 00:15 Morphine Sulfate 2 mg Q30M PRN IV 08/13/24 00:15 Apixaban 5 mg BID PO 08/13/24 10:00 08/24/24 22:21 5 MG Levothyroxine Sodium 75 mcg QAM@0600 PO 08/14/24 06:00 08/25/24 06:18 75 MCG Polyethylene Glycol 17 gm DAILYPRN PRN PO 08/13/24 12:15 08/23/24 19:14 17 GM Pantoprazole Sodium 40 mg BID@0700,1700 PO 08/15/24 17:00 08/25/24 06:18 40 MG Oxycodone HCl 5 mg Q6HP PRN PO 08/17/24 12:45 08/25/24 06:23 5 MG Propranolol HCl 20 mg TID PO 08/17/24 14:00 08/25/24 06:19 20 MG Lidocaine 1 patch DAILY TOP 08/22/24 10:00 08/24/24 10:08 1 PATCH Furosemide 40 mg DAILY PO 08/25/24 10:00 Examination: GENERAL:Abnormal laboratory and microbiology Laboratory Tests 08/25/24 06:36 08/20/24 11:00 Test 08/25/24 06:36 Range/Units Serum Glucose 84 74-106 mg/dL Microbiology Date/Time Source Procedure Growth Status 08/12/24 18:36 Blood Blood Culture - Final NO GROWTH AFTER 5 DAYS OF INCUBATION. Complete Problem List/Assessment/Plan Problem List/Assessment/Plan Hyponatremia due to excess H2O Hepatic encephalopathy Liver cirrhosis Hepatocellular carcinoma Hypoalbuminemia Normal kidney function Anemia due To blood loss GI bleeding lasix 40mg po daily, strict water restriction lasix IVP today strict I/O fluid restrict 1L Lactulose GI Plan discussed with: Patient My Orders My Orders Orders - IAN RAO MD Procedure Category Date Status Time Furosemide Tablet PHA 08/25/24 In Process (Lasix Tablet) 10:00 Osmolality Urine LAB 08/25/24 Verified 10:37 Sodium Chloride Tab PHA 08/25/24 Verified 10:45 Furosemide Injection PHA 08/25/24 Verified (Lasix Injection) 10:45 Basic Metabolic Panel LAB 08/26/24 Verified 04:00 Dietary Evaluation Review Comments: 1) Continue current plan of care 2) Consider 2gm Na diet if ammonia is WNL 3) Ensure enlive 240ml BID Expected Outcomes/Goals: Pt will meet 75% estimated needs Fu 3-5 days IAN RAO MD Aug 25, 2024 10:40
[2024-08-25] MEDS: FUROSEMIDE 20 MG TAB PO SCH (10:59)
--- NOTE | 2024-08-25 11:41 | DVHPN2 ---
Subjective Patient continues to report having lower back pain Reviewed: Care Plan, H&P, Labs, Medications Changes from previous H/P or p: No Changes General: Per HPI Objective Vitals Vital Signs Date Time Temp Pulse Resp B/P (MAP) Pulse Ox O2 Delivery O2 Flow Rate FiO2 08/25/24 10:59 118/56 08/25/24 09:00 98.1 77 17 94 98.1 08/24/24 20:00 Room Air* 0 21 Intake/Output Intake and Output 08/25/24 07:00 Intake Total 750 ml Output Total 550 ml Balance 200 ml Intake Oral 100 ml IV Total 50 ml Tube Feeding 600 ml Output Urine Total 550 ml # Bowel Movements 2 General Appearance: Alert, Oriented X3, Cooperative, mild distress HEENT: Atraumatic, PERRLA Lungs: Clear to auscultation, Normal air movement Cardiovascular: Normal S1, Normal S2, Other (Sinus tachycardia) Abdomen: Normal bowel sounds, Other (Distended abdomen,? Ascites) Musculoskeletal: Normal sensory function, Normal motor function Neuro: Normal gait, Normal speech, Cranial nerves 3-12 NL Skin: Dry, Intact Psych/Mental Status: Mental status NL, Mood NL Medications Current Medications Medications Dose Ordered Sig/Lachelle Route Start Time Stop Time Status Last Admin Dose Admin Ceftriaxone Sodium 50 ml @ 100 mls/hr DAILY@09 IV 08/13/24 09:00 08/25/24 10:36 100 MLS/HR Ondansetron HCl 4 mg Q4HP PRN IV 08/13/24 00:15 Nitroglycerin 0.4 mg Q5MINP PRN SL 08/13/24 00:15 Morphine Sulfate 2 mg Q30M PRN IV 08/13/24 00:15 Apixaban 5 mg BID PO 08/13/24 10:00 08/25/24 10:36 5 MG Levothyroxine Sodium 75 mcg QAM@0600 PO 08/14/24 06:00 08/25/24 06:18 75 MCG Polyethylene Glycol 17 gm DAILYPRN PRN PO 08/13/24 12:15 08/23/24 19:14 17 GM Pantoprazole Sodium 40 mg BID@0700,1700 PO 08/15/24 17:00 08/25/24 06:18 40 MG Propranolol HCl 20 mg TID PO 08/17/24 14:00 08/25/24 06:19 20 MG Lidocaine 1 patch DAILY TOP 08/22/24 10:00 08/25/24 10:36 1 PATCH Furosemide 40 mg DAILY PO 08/25/24 10:00 08/25/24 10:59 40 MG Sodium Chloride 1 gm BID PO 08/25/24 10:45 Oxycodone HCl 5 mg Q4HP PRN PO 08/25/24 11:45 UNV Laboratory Results Laboratory Tests 08/20/24 11:00 08/25/24 06:36 Chemistry Test 08/25/24 06:36 Calcium Level 8.4 mg/dL (8.7-10.4) L Urinalysis Test 08/12/24 18:58 08/14/24 17:40 Urine Mucus Few (None Seen) Urine Color Yellow (Yellow) Urine Clarity Clear (Clear) Urine pH 6.0 (5.0-9.0) Urine Specific [place] 1.016 (1.001-1.035) Urine Protein Trace (Negative) H Urine Ketones Negative (Negative) Urine Blood 2+ /uL (Negative) H Urine Nitrite Negative (Negative) Urine Bilirubin 1+ (Negative) H Urine Urobilinogen 8 mg/dL (Negative) H Urine Leukocyte Esterase 1+ /uL (Negative) Urine RBC 71 /hpf (0 - 4) Urine Microscopic WBC 28 /HPF (0-5) H Urine Squamous Epithelial Cells None seen /hpf (<5) Urine Bacteria None seen /hpf (None Seen) Urine Osmolality 471 mOsm/kg Urine Creatinine 32.90 mg/dL (30.0-125.0) Urine Protein/Creatinine Ratio 1.02 Urine Sodium 11 mmol/L (40-220) L Urine Glucose Normal mg/dL (Normal) Urine Total Protein 33.6 mg/dL (1-14) H Microbiology Microbiology Date/Time Source Procedure Growth Status 08/12/24 18:36 Blood Blood Culture - Final NO GROWTH AFTER 5 DAYS OF INCUBATION. Complete Labs and/or images reviewed: Labs reviewed by me, Image(s) reviewed by me Assessment/Plan Assessment/Plan Impression: -acute on chronic hypoxic respiratory failure -hepatic carcinoma with chemotherapy , metastatic disease -constipation -atelectasis -hypothyroidism -primary hypertension -dehydration with azotemia -probable community-acquired pneumonia Gram-positive/Gram-negative etiology -hyponatremia -Lumbar spinal stenosis -fragility fracture of pubis ramus Plan: Events: No events overnight. Given patient was not progressing with physical therapy in the hospital, she was not deemed appropriate for rehab in a [facility] facility. This was discussed with the patient, and will be discussed with the patient was daughter. Patient will be discharged home with home health services, physical therapy, with appropriate pain management. -lidocaine patch to lower back -nephrology consultation: Recommendations reviewed -increase levothyroxine -incentive spirometer -continue Rocephin, azithromycin -continue propranolol -social service consultation for DC planning to [facility] facility for rehab. Repeat labs in a.m.. Total time spent with patient discussing and formulating plan of care: 35 minutes. This medical document was created using an electronic medical record system with [employer] dictation system. Although this document has been carefully reviewed, there may still be some phonetic and typographical errors. These areas are purely typographical due to imperfections of the software programs, and do not reflect any compromise in the patient's medical care. Plan discussed with: Patient, Other (RN) My Orders Orders - TAY HUYNH NP Procedure Category Date Status Time * Entry Level Sales Representative CONS 08/24/24 Transmitted Consult Notify Provider NOTICE 08/24/24 Transmitted Malnutrition 14:19 Increase Calorie NOURISH 08/24/24 Transmitted Intake 14:19 Nutritional NOURISH 08/24/24 Transmitted Supplements 14:19 Oxycodone Immediate PHA 08/25/24 Logged Rel Tablet 11:45 * Entry Level Sales Representative CONS 08/25/24 Transmitted Consult Date of Service: Aug 25, 2024 Billing Provider: TAY HUYNH NP Common Visit Codes: [id number] INP/OBS CARE(HIGH) TAY HUYNH NP Aug 25, 2024 11:41
[2024-08-25] MEDS: FUROSEMIDE 40 MG/4 ML VIAL IV ONE (13:00)
[2024-08-25] MEDS: SODIUM CHLORIDE 1 GM TAB PO SCH (13:00)
[2024-08-25] MEDS: oxyCODONE HCL 5MG TAB PO PRN (18:46)
[2024-08-26] VITALS (8 sets, daily range): BP systolic 105–135; BP diastolic 57–71; PULSE 78–96; RESP 18–20; TEMP 97.9–98.3; O2SAT 92–97
[2024-08-26 06:57] LABS: Anion Gap 6 (5-15); Calcium 8.9 mg/dL (8.7-10.4); Carbon Dioxide 28 mmol/L (20-31)
[2024-08-26 07:02] LABS: BUN/Creatinine Ratio 35.3 (10.0-20.0); Blood Urea Nitrogen 12 mg/dL (9-23); Glucose 86 mg/dL (74-106)
[2024-08-26 07:08] LABS: Chloride 95 mmol/L (98-107); Potassium 3.5 mmol/L (3.5-5.1); Sodium 129 mmol/L (136-145)
--- NOTE | 2024-08-26 14:09 | DVHPN2 ---
Subjective Patient continues to report having lower back pain Reviewed: Care Plan, H&P, Labs, Medications Changes from previous H/P or p: No Changes General: Per HPI Objective Vitals Vital Signs Date Time Temp Pulse Resp B/P (MAP) Pulse Ox O2 Delivery O2 Flow Rate FiO2 08/26/24 10:32 123/69 08/26/24 09:00 98.1 82 20 94 98.1 08/25/24 20:00 Room Air* 0 21 Intake/Output Intake and Output 08/26/24 07:00 Intake Total 1036 ml Output Total 2100 ml Balance -1064 ml Intake Oral 986 ml IV Total 50 ml Output Urine Total 2100 ml # Bowel Movements 1 General Appearance: Alert, Oriented X3, Cooperative, mild distress HEENT: Atraumatic, PERRLA Lungs: Clear to auscultation, Normal air movement Cardiovascular: Normal S1, Normal S2, Other (Sinus tachycardia) Abdomen: Normal bowel sounds, Other (Distended abdomen,? Ascites) Musculoskeletal: Normal sensory function, Normal motor function Neuro: Normal gait, Normal speech, Cranial nerves 3-12 NL Skin: Dry, Intact Psych/Mental Status: Mental status NL, Mood NL Medications Current Medications Medications Dose Ordered Sig/Lachelle Route Start Time Stop Time Status Last Admin Dose Admin Ceftriaxone Sodium 50 ml @ 100 mls/hr DAILY@09 IV 08/13/24 09:00 08/26/24 10:32 100 MLS/HR Ondansetron HCl 4 mg Q4HP PRN IV 08/13/24 00:15 Nitroglycerin 0.4 mg Q5MINP PRN SL 08/13/24 00:15 Morphine Sulfate 2 mg Q30M PRN IV 08/13/24 00:15 Apixaban 5 mg BID PO 08/13/24 10:00 08/26/24 10:32 5 MG Levothyroxine Sodium 75 mcg QAM@0600 PO 08/14/24 06:00 08/26/24 05:36 75 MCG Polyethylene Glycol 17 gm DAILYPRN PRN PO 08/13/24 12:15 08/23/24 19:14 17 GM Pantoprazole Sodium 40 mg BID@0700,1700 PO 08/15/24 17:00 08/26/24 06:15 40 MG Propranolol HCl 20 mg TID PO 08/17/24 14:00 08/26/24 05:36 20 MG Lidocaine 1 patch DAILY TOP 08/22/24 10:00 08/26/24 10:32 1 PATCH Furosemide 40 mg DAILY PO 08/25/24 10:00 08/26/24 10:32 40 MG Sodium Chloride 1 gm BID PO 08/25/24 10:45 08/26/24 10:32 1 GM Oxycodone HCl 5 mg Q4HP PRN PO 08/25/24 11:45 08/26/24 11:43 5 MG Laboratory Results Laboratory Tests 08/20/24 11:00 08/26/24 06:18 Chemistry Test 08/26/24 06:18 Calcium Level 8.9 mg/dL (8.7-10.4) Urinalysis Test 08/12/24 18:58 08/14/24 17:40 08/26/24 04:35 Urine Mucus Few (None Seen) Urine Color Yellow (Yellow) Urine Clarity Clear (Clear) Urine pH 6.0 (5.0-9.0) Urine Specific [place] 1.016 (1.001-1.035) Urine Protein Trace (Negative) H Urine Ketones Negative (Negative) Urine Blood 2+ /uL (Negative) H Urine Nitrite Negative (Negative) Urine Bilirubin 1+ (Negative) H Urine Urobilinogen 8 mg/dL (Negative) H Urine Leukocyte Esterase 1+ /uL (Negative) Urine RBC 71 /hpf (0 - 4) Urine Microscopic WBC 28 /HPF (0-5) H Urine Squamous Epithelial Cells None seen /hpf (<5) Urine Bacteria None seen /hpf (None Seen) Urine Creatinine 32.90 mg/dL (30.0-125.0) Urine Protein/Creatinine Ratio 1.02 Urine Sodium 11 mmol/L (40-220) L Urine Glucose Normal mg/dL (Normal) Urine Total Protein 33.6 mg/dL (1-14) H Urine Osmolality 325 mOsm/kg Microbiology Microbiology Date/Time Source Procedure Growth Status 08/12/24 18:36 Blood Blood Culture - Final NO GROWTH AFTER 5 DAYS OF INCUBATION. Complete Labs and/or images reviewed: Labs reviewed by me, Image(s) reviewed by me Assessment/Plan Assessment/Plan Impression: -acute on chronic hypoxic respiratory failure -hepatic carcinoma with chemotherapy , metastatic disease -constipation -atelectasis -hypothyroidism -primary hypertension -dehydration with azotemia -probable community-acquired pneumonia Gram-positive/Gram-negative etiology -hyponatremia -Lumbar spinal stenosis -fragility fracture of pubis ramus Plan: Events: No events overnight. Patient continues to have extreme back pain limiting her physical therapy. Oxycodone5 mg was increased to q.4 hours as needed. Continues to have pain. Change pain regimen to OxyContin extended release 10 mg p.o. q.12 hours. Long discussion was made with the patient was daughter as well as patient was regarding discharge planning. At this time she was in adequate help at home. Patient will be best served with group home facility for continued physical therapy as well as IV antibiotic therapy. Discussed with social service agency director. -lidocaine patch to lower back -nephrology consultation: Recommendations reviewed -increase levothyroxine -incentive spirometer -continue Rocephin, azithromycin -continue propranolol -social service consultation for DC planning to group home facility for rehab. Repeat labs in a.m.. Total time spent with patient discussing and formulating plan of care: 35 minutes. This medical document was created using an electronic medical record system with [employer] dictation system. Although this document has been carefully reviewed, there may still be some phonetic and typographical errors. These areas are purely typographical due to imperfections of the software programs, and do not reflect any compromise in the patient's medical care. Plan discussed with: Patient, Other (RN) My Orders Orders - TAY HUYNH NP Procedure Category Date Status Time * Loader Engineer CONS 08/26/24 Verified Consult Date of Service: Aug 26, 2024 Billing Provider: TAY HUYNH NP Common Visit Codes: [id number] INP/OBS CARE(HIGH) TAY HUYNH NP Aug 26, 2024 14:09
[2024-08-26] MEDS ORDERED: oxyCODONE ER 10 MG TAB PO SCH (14:15)
--- NOTE | 2024-08-26 16:13 | DVHPN2 ---
Progress Note Date Seen: Aug 26, 2024 Medical Necessity Reason Pt with a Central, PICC or Fol: Yes The following are medically ne: Shaw Catheter Objective vital signs Vital Sign Date Time Temp Pulse Resp B/P (MAP) Pulse Ox O2 Delivery O2 Flow Rate FiO2 08/26/24 13:00 98.3 78 18 112/66 (81) 96 98.3 08/26/24 08:30 Room Air* 0 21 Total Intake and Output 08/25/24 08/25/24 08/26/24 15:00 23:00 07:00 Intake Total 50 ml 686 ml 300 ml Output Total 1600 ml 500 ml Balance 50 ml -914 ml -200 ml medications Current Medications Medications Dose Ordered Sig/Lachelle Route Start Time Stop Time Status Last Admin Dose Admin Ceftriaxone Sodium 50 ml @ 100 mls/hr DAILY@09 IV 08/13/24 09:00 08/26/24 10:32 100 MLS/HR Ondansetron HCl 4 mg Q4HP PRN IV 08/13/24 00:15 Nitroglycerin 0.4 mg Q5MINP PRN SL 08/13/24 00:15 Morphine Sulfate 2 mg Q30M PRN IV 08/13/24 00:15 Apixaban 5 mg BID PO 08/13/24 10:00 08/26/24 10:32 5 MG Levothyroxine Sodium 75 mcg QAM@0600 PO 08/14/24 06:00 08/26/24 05:36 75 MCG Polyethylene Glycol 17 gm DAILYPRN PRN PO 08/13/24 12:15 08/23/24 19:14 17 GM Pantoprazole Sodium 40 mg BID@0700,1700 PO 08/15/24 17:00 08/26/24 06:15 40 MG Propranolol HCl 20 mg TID PO 08/17/24 14:00 08/26/24 05:36 20 MG Lidocaine 1 patch DAILY TOP 08/22/24 10:00 08/26/24 10:32 1 PATCH Furosemide 40 mg DAILY PO 08/25/24 10:00 08/26/24 10:32 40 MG Sodium Chloride 1 gm BID PO 08/25/24 10:45 08/26/24 10:32 1 GM Oxycodone HCl 5 mg Q4HP PRN PO 08/25/24 11:45 08/26/24 11:43 5 MG Morphine Sulfate 15 mg Q12HR PO 08/26/24 22:00 UNV Examination: GENERAL:Normal laboratory and microbiology Laboratory Tests 08/26/24 06:18 08/20/24 11:00 Test 08/26/24 06:18 Range/Units Serum Glucose 86 74-106 mg/dL Microbiology Date/Time Source Procedure Growth Status 08/12/24 18:36 Blood Blood Culture - Final NO GROWTH AFTER 5 DAYS OF INCUBATION. Complete Problem List/Assessment/Plan Problem List/Assessment/Plan Hyponatremia due to excess H2O Hepatic encephalopathy Liver cirrhosis Hepatocellular carcinoma Hypoalbuminemia Normal kidney function Anemia due To blood loss GI bleeding lasix 40mg po daily, strict water restriction lasix IVP today strict I/O fluid restrict 1L Lactulose GI Plan discussed with: Patient Dietary Evaluation Review Comments: 1) Continue current plan of care 2) Consider 2gm Na diet if ammonia is WNL 3) Ensure enlive 240ml BID Expected Outcomes/Goals: Pt will meet 75% estimated needs Fu 3-5 days IAN RAO MD Aug 26, 2024 16:13
[2024-08-26] MEDS: MORPHINE SULF 15mg ER tab PO SCH (22:38)
[2024-08-27] VITALS (9 sets, daily range): BP systolic 105–137; BP diastolic 54–75; PULSE 74–91; RESP 17–20; TEMP 97.4–98.2; O2SAT 94–97
--- NOTE | 2024-08-27 12:49 | DVHDS2 ---
Discharge Summary Date of Admission Aug 12, 2024 at 23:59 Date of Discharge: Aug 27, 2024 Admitting Diagnosis Metabolic encephalopathy Labs/Diagnostic Data: Laboratory Results Test 08/26/24 06:18 08/26/24 04:35 08/20/24 11:00 08/18/24 05:52 Sodium Level 129 mmol/L (136-145) Potassium Level 3.5 mmol/L (3.5-5.1) Chloride Level 95 mmol/L (98-107) Carbon Dioxide Level 28 mmol/L (20-31) Anion Gap 6 (5-15) Blood Urea Nitrogen 12 mg/dL (9-23) Creatinine 0.34 mg/dL (0.550-1.02) Glomerular Filtration Rate Calc 107 mL/min (>90) BUN/Creatinine Ratio 35.3 (10.0-20.0) Serum Glucose 86 mg/dL (74-106) Calcium Level 8.9 mg/dL (8.7-10.4) Urine Osmolality 325 mOsm/kg White Blood Count 2.6 10^3/uL (4.4-10.8) Red Blood Count 2.76 10^6/uL (4.0-5.20) Hemoglobin 8.5 g/dL (12.2-16.2) Hematocrit 25.0 % (36.0-46.0) Mean Corpuscular Volume 90.5 fL (80.0-100.0) Mean Corpuscular Hemoglobin 30.8 pg (28.0-32.0) Mean Corpuscular Hemoglobin Concent 34.0 g/dL (32.0-36.0) Red Cell Distribution Width 18.4 % (11.8-14.3) Platelet Count 240 10^3/uL (140-450) Mean Platelet Volume 7.4 fL (6.9-10.8) Neutrophils (%) (Auto) 74.1 % (37.0-80.0) Lymphocytes (%) (Auto) 10.4 % (10.0-50.0) Monocytes (%) (Auto) 13.3 % (0.0-12.0) Eosinophils (%) (Auto) 1.9 % (0.0-7.0) Basophils (%) (Auto) 0.3 % (0.0-2.0) Neutrophils # (Auto) 1.9 10 ^3/uL (1.6-8.6) Lymphocytes # (Auto) 0.3 10 ^3/uL (0.4-5.4) Monocytes # (Auto) 0.4 10 ^3/uL (0-1.3) Eosinophils # (Auto) 0.1 10 ^3/uL (0-0.8) Basophils # (Auto) 0 10 ^3/uL (0-0.2) Nucleated Red Blood Cells 0.1 % Total Bilirubin 2.9 mg/dL (0.2-1.0) Aspartate Amino Transferase (AST) 125 U/L (13-40) Alanine Aminotransferase (ALT) 108 U/L (7-40) Alkaline Phosphatase 328 U/L (46-116) Total Protein 5.3 g/dL (5.7-8.2) Albumin 2.3 g/dL (3.2-4.8) Test 08/15/24 14:40 08/14/24 17:40 08/14/24 05:48 08/13/24 01:40 Stool Occult Blood Negative (Negative) Stool Occult Blood Sample #3 (Negative) Urine Color Yellow (Yellow) Urine Clarity Clear (Clear) Urine pH 6.0 (5.0-9.0) Urine Specific [place] 1.016 (1.001-1.035) Urine Protein Trace (Negative) Urine Ketones Negative (Negative) Urine Blood 2+ /uL (Negative) Urine Nitrite Negative (Negative) Urine Bilirubin 1+ (Negative) Urine Urobilinogen 8 mg/dL (Negative) Urine Leukocyte Esterase 1+ /uL (Negative) Urine RBC 71 /hpf (0 - 4) Urine Microscopic WBC 28 /HPF (0-5) Urine Squamous Epithelial Cells None seen /hpf (<5) Urine Bacteria None seen /hpf (None Seen) Urine Creatinine 32.90 mg/dL (30.0-125.0) Urine Protein/Creatinine Ratio 1.02 Urine Sodium 11 mmol/L (40-220) Urine Glucose Normal mg/dL (Normal) Urine Total Protein 33.6 mg/dL (1-14) Uric Acid 3.7 mg/dL (3.1-7.8) Phosphorus Level 3.4 mg/dL (2.4-5.1) Magnesium Level 1.9 mg/dL (1.6-2.6) B-Type Natriuretic Peptide 95.31 pg/mL (0-100) Vitamin D 25-Hydroxy 53.7 ng/mL (30.0-100) Hepatitis B Surface Antigen Negative (Negative) Hepatitis C Antibody Reactive (Negative) Lactic Acid Level 2.7 mmol/L (0.4-2.0) Free Thyroxine Index 1.7 (1.2-4.9) Thyroxine (T4) 4.6 ug/dL (4.5-12.0) Triiodothyronine (T3) Uptake 38 % (24-39) Test 08/12/24 23:49 08/12/24 21:05 08/12/24 18:58 08/12/24 18:36 Prothrombin Time 14.1 sec (9.3-11.8) Prothrombin Time INR 1.37 (0.9-1.15) Activated Partial Thromboplast Time 43.5 SEC (24.5-34.5) Thyroid Stimulating Hormone (TSH) 10.36 uIU/mL (0.55-4.78) Troponin I High Sensitivity 6 ng/L (</=34) Urine Mucus Few (None Seen) Ammonia 35 umol/L (11-32) Lipase 24 U/L (12-53) Test 08/12/24 18:34 08/12/24 17:41 Influenza Type A Antigen Negative (Negative) Influenza Type B Antigen Negative (Negative) SARS-CoV-2 Antigen (Rapid) Negative (NEGATIVE) POC Glucose 146 mg/dl (70-106) Other Laboratory Tests 08/26/24 06:18 08/20/24 11:00 Brief Hx & Hospital Course: History of Present Illness 74-year-old female presents for evaluation of generalized weakness. Patient's family opted to bring patient in for evaluation due to decreased oral intake for the past three days. They have noted patient becoming progressively weaker. She has a history of stage IV hepatic carcinoma currently undergoing oral chemotherapy seen at [facility]. Patient denies any abdominal pain. She states having left knee pain. No cardiac or respiratory symptoms. Course of hospitalization: Patient was treated with empiric antibiotic therapy for community-acquired pneumonia. Patient was also placed on O2 supplementation, which was eventually weaned off. Patient was mentation also improved. She was found to have severe pain to her hip, pelvis, as well as lumbar spine and has been unable to ambulate. According to patient was daughter, the patient lives with one of the roommate, in his been independent up until the time of admission. Further discussion with the family reveals that her overall physical condition has been declining since starting chemotherapy. CT scan of the lumbar spine was performed with the following impression: IMPRESSION: Multilevel severe degenerative changes of the lumbar spine as detailed above. MRI may be considered for further evaluation. Acute/ subacute left-sided sacral ala fracture. Acute /subacute comminuted left- sided inferior pubic ramus fracture when correlated with CT abdomen and pelvis of 08/12/2024. Partially visualized mild ascites. 4.8 cm left adrenal nodule with 3.8 cm right adrenal nodule. ATED BY: CARMEL MORRISON DO DICTATED DATE/TIME: 08/21/241936 SIGNED BY: CARMEL MORRISON DO SIGNED DATE/TIME: 08/21/241936 Physical therapy was implemented with the patient with severe debilitation noted. Discussion was made again with the patient was now alert and oriented as well as daughter, with plans to send patient was correction facility for further physical therapy as well as IV antibiotic therapy until the patient's son arrives approximately two weeks to assist with care for her at home. Patient was also requesting for her oncologist to be contacted with her records being sent to Dr. Castro for continued treatment in this area given traveling to [facility] is taxing with the patient with respect to treatment as well as appointments. Both the patient and daughter agreeable with discharge plan. All questions answered. Physical examination General: Alert and Oriented x3. No acute distress. Well-nourished. Eyes: EOMI. Anicteric. HENT: Moist mucous membranes. Lungs: Clear to auscultation bilaterally. No accessory muscle use. Cardiovascular: Regular rate and rhythm. No murmur. No JVD. Abdomen: Soft, non-tender and non-distended. No palpable masses. Extremities: No edema. Non-tender. Skin: No rashes or lesions. Warm. Jaundiced Neurologic: No focal neurological deficits. CN II-XII grossly intact, but not individually tested. Psychiatric: Cooperative. Appropriate mood and affect. Total time spent with patient discussing and formulating plan of care: 35 minutes. This medical document was created using an electronic medical record system with [employer] dictation system. Although this document has been carefully reviewed, there may still be some phonetic and typographical errors. These areas are purely typographical due to imperfections of the software programs, and do not reflect any compromise in the patient's medical care. Condition at Discharge: Poor Final Diagnosis/Problems List Acute hypoxic respiratory failure Secondary diagnosis: -hepatic carcinoma with chemotherapy , metastatic disease -constipation -atelectasis -hypothyroidism -primary hypertension -dehydration with azotemia -probable community-acquired pneumonia Gram-positive/Gram-negative etiology -hyponatremia -Lumbar spinal stenosis -fragility fracture of pubis ramus Discharge Disposition: Snf Facility Discharge Instruct/Medications Diet: Regular Activity: No Restrictions, As Tolerated Follow Up/Referral: Follow up with PCP in 1-2 weeks Follow up with new oncologist at next earliest appointment Medications: Continue all home medications. Follow medication reconciliation 36 Discharge Statement: "Patient was advised to return to the ER or call 911 if any headaches, dizziness, shortness of breath, chest pain, abdominal pain, bleeding, fevers, or worsening of medical condition. Patient was counseled about treatment plan, medications, possible side effects, patientverbalized understanding. All questions were answered to the best of my ability. This discharge took greater then 30 minutes in planning, reviewing documentation, counseling the patient, and discussing with other team members." ASSESSMENT ASSESSMENT Assessment Acute hypoxic respiratory failure Date of Service: Aug 27, 2024 Billing Provider: TAY HUYNH NP Common Visit Codes: [id number] DISCH DAY >30min TAY HUYNH NP Aug 27, 2024 12:49
[2024-08-27] MEDS: ONDANSETRON HCL 4 MG/2 ML VIAL IV PRN (18:37)
[2024-08-28] VITALS (9 sets, daily range): BP systolic 102–126; BP diastolic 65–70; PULSE 77–86; RESP 16–19; TEMP 97.7–98.3; O2SAT 91–95
--- NOTE | 2024-08-28 09:46 | DVHPN2 ---
Progress Note Date Seen: Aug 28, 2024 Medical Necessity Reason Pt with a Central, PICC or Fol: Yes The following are medically ne: Shaw Catheter Objective vital signs Vital Sign Date Time Temp Pulse Resp B/P (MAP) Pulse Ox O2 Delivery O2 Flow Rate FiO2 08/28/24 08:34 126/69 08/28/24 07:57 18 95 Room Air* 0 21 08/28/24 05:57 77 08/28/24 05:00 98.0 98.0 Total Intake and Output 08/27/24 08/27/24 08/28/24 15:00 23:00 07:00 Intake Total 230 ml 100 ml Output Total 175 ml 150 ml Balance 55 ml -50 ml medications Current Medications Medications Dose Ordered Sig/Lachelle Route Start Time Stop Time Status Last Admin Dose Admin Ceftriaxone Sodium 50 ml @ 100 mls/hr DAILY@09 IV 08/13/24 09:00 08/28/24 08:33 100 MLS/HR Ondansetron HCl 4 mg Q4HP PRN IV 08/13/24 00:15 08/27/24 18:37 4 MG Nitroglycerin 0.4 mg Q5MINP PRN SL 08/13/24 00:15 Morphine Sulfate 2 mg Q30M PRN IV 08/13/24 00:15 Apixaban 5 mg BID PO 08/13/24 10:00 08/28/24 08:33 5 MG Levothyroxine Sodium 75 mcg QAM@0600 PO 08/14/24 06:00 08/28/24 05:57 75 MCG Polyethylene Glycol 17 gm DAILYPRN PRN PO 08/13/24 12:15 08/23/24 19:14 17 GM Pantoprazole Sodium 40 mg BID@0700,1700 PO 08/15/24 17:00 08/28/24 05:57 40 MG Propranolol HCl 20 mg TID PO 08/17/24 14:00 08/27/24 22:23 20 MG Lidocaine 1 patch DAILY TOP 08/22/24 10:00 08/28/24 08:33 1 PATCH Furosemide 40 mg DAILY PO 08/25/24 10:00 08/28/24 08:34 40 MG Sodium Chloride 1 gm BID PO 08/25/24 10:45 08/27/24 22:22 1 GM Oxycodone HCl 5 mg Q4HP PRN PO 08/25/24 11:45 08/26/24 20:15 5 MG Morphine Sulfate 15 mg Q12HR PO 08/26/24 22:00 08/28/24 08:34 15 MG laboratory and microbiology Laboratory Tests 08/26/24 06:18 08/20/24 11:00 Test 08/26/24 06:18 Range/Units Serum Glucose 86 74-106 mg/dL Microbiology Date/Time Source Procedure Growth Status 08/12/24 18:36 Blood Blood Culture - Final NO GROWTH AFTER 5 DAYS OF INCUBATION. Complete Problem List/Assessment/Plan Problem List/Assessment/Plan Hyponatremia due to excess H2O Hepatic encephalopathy Liver cirrhosis Hepatocellular carcinoma Hypoalbuminemia Normal kidney function Anemia due To blood loss GI bleeding lasix 40mg po daily-> increase to BID outpatient if noted swelling, strict water restriction, oral sodium tabs. continue this regime outpatient strict I/O fluid restrict 1L strict Lactulose GI Plan discussed with: Patient Dietary Evaluation Review Comments: 1) Continue current plan of care 2) Consider 2gm Na diet if ammonia is WNL 3) Ensure enlive 240ml BID Expected Outcomes/Goals: Pt will meet 75% estimated needs Fu 3-5 days IAN RAO MD Aug 28, 2024 09:46
--- NOTE | 2024-08-28 12:04 | DVHPN2 ---
Subjective Patient reports that her pain has improved. Still unwilling to attempt physical therapy. Reviewed: Care Plan, H&P, Labs, Medications Changes from previous H/P or p: Changes General: Per HPI Objective Vitals Vital Signs Date Time Temp Pulse Resp B/P (MAP) Pulse Ox O2 Delivery O2 Flow Rate FiO2 08/28/24 09:00 97.8 80 17 126/69 (88) 91 97.8 08/28/24 07:57 Room Air* 0 21 Intake/Output Intake and Output 08/28/24 07:00 Intake Total 330 ml Output Total 325 ml Balance 5 ml Intake Oral 280 ml IV Total 50 ml Output Urine Total 325 ml General Appearance: Alert, Oriented X3, Cooperative, mild distress HEENT: Atraumatic, PERRLA Lungs: Clear to auscultation, Normal air movement Cardiovascular: Normal S1, Normal S2, Other (Sinus tachycardia) Abdomen: Normal bowel sounds, Other (Distended abdomen,? Ascites) Musculoskeletal: Normal sensory function, Normal motor function Neuro: Normal gait, Normal speech, Cranial nerves 3-12 NL Skin: Dry, Intact Psych/Mental Status: Mental status NL, Mood NL Medications Current Medications Medications Dose Ordered Sig/Lachelle Route Start Time Stop Time Status Last Admin Dose Admin Ceftriaxone Sodium 50 ml @ 100 mls/hr DAILY@09 IV 08/13/24 09:00 08/28/24 08:33 100 MLS/HR Ondansetron HCl 4 mg Q4HP PRN IV 08/13/24 00:15 08/27/24 18:37 4 MG Nitroglycerin 0.4 mg Q5MINP PRN SL 08/13/24 00:15 Morphine Sulfate 2 mg Q30M PRN IV 08/13/24 00:15 Apixaban 5 mg BID PO 08/13/24 10:00 08/28/24 08:33 5 MG Levothyroxine Sodium 75 mcg QAM@0600 PO 08/14/24 06:00 08/28/24 05:57 75 MCG Polyethylene Glycol 17 gm DAILYPRN PRN PO 08/13/24 12:15 08/23/24 19:14 17 GM Pantoprazole Sodium 40 mg BID@0700,1700 PO 08/15/24 17:00 08/28/24 05:57 40 MG Propranolol HCl 20 mg TID PO 08/17/24 14:00 08/27/24 22:23 20 MG Lidocaine 1 patch DAILY TOP 08/22/24 10:00 08/28/24 08:33 1 PATCH Furosemide 40 mg DAILY PO 08/25/24 10:00 08/28/24 08:34 40 MG Sodium Chloride 1 gm BID PO 08/25/24 10:45 08/27/24 22:22 1 GM Oxycodone HCl 5 mg Q4HP PRN PO 08/25/24 11:45 08/26/24 20:15 5 MG Morphine Sulfate 15 mg Q12HR PO 08/26/24 22:00 08/28/24 08:34 15 MG Laboratory Results Laboratory Tests 08/20/24 11:00 08/26/24 06:18 Urinalysis Test 08/12/24 18:58 08/14/24 17:40 08/26/24 04:35 Urine Mucus Few (None Seen) Urine Color Yellow (Yellow) Urine Clarity Clear (Clear) Urine pH 6.0 (5.0-9.0) Urine Specific [place] 1.016 (1.001-1.035) Urine Protein Trace (Negative) H Urine Ketones Negative (Negative) Urine Blood 2+ /uL (Negative) H Urine Nitrite Negative (Negative) Urine Bilirubin 1+ (Negative) H Urine Urobilinogen 8 mg/dL (Negative) H Urine Leukocyte Esterase 1+ /uL (Negative) Urine RBC 71 /hpf (0 - 4) Urine Microscopic WBC 28 /HPF (0-5) H Urine Squamous Epithelial Cells None seen /hpf (<5) Urine Bacteria None seen /hpf (None Seen) Urine Creatinine 32.90 mg/dL (30.0-125.0) Urine Protein/Creatinine Ratio 1.02 Urine Sodium 11 mmol/L (40-220) L Urine Glucose Normal mg/dL (Normal) Urine Total Protein 33.6 mg/dL (1-14) H Urine Osmolality 325 mOsm/kg Microbiology Microbiology Date/Time Source Procedure Growth Status 08/12/24 18:36 Blood Blood Culture - Final NO GROWTH AFTER 5 DAYS OF INCUBATION. Complete Labs and/or images reviewed: Labs reviewed by me, Image(s) reviewed by me Assessment/Plan Assessment/Plan Impression: -acute on chronic hypoxic respiratory failure -hepatic carcinoma with chemotherapy , metastatic disease -constipation -atelectasis -hypothyroidism -primary hypertension -dehydration with azotemia -probable community-acquired pneumonia Gram-positive/Gram-negative etiology -hyponatremia -Lumbar spinal stenosis -fragility fracture of pubis ramus Plan: Events: No events overnight. -pain management: MS Contin 15 mg b.i.d., oxycodone 5 mg q.4 for breakthrough pain, lidocaine patch to lower back -nephrology consultation: Recommendations reviewed -incentive spirometer -continue Rocephin -continue propranolol -social service consultation for DC planning to [facility]. Repeat labs in a.m. Total time spent with patient discussing and formulating plan of care: 35 minutes. This medical document was created using an electronic medical record system with [employer] dictation system. Although this document has been carefully reviewed, there may still be some phonetic and typographical errors. These areas are purely typographical due to imperfections of the software programs, and do not reflect any compromise in the patient's medical care. Plan discussed with: Patient, Other My Orders Orders - TAY HUYNH NP Procedure Category Date Status Time Discharge DISCHARGE 08/27/24 Transmitted 12:39 Transfer Orders XFER 08/27/24 Transmitted 12:39 Hepatic Diet DIET 08/28/24 Transmitted (50gmpro,2gmna) Breakfast Comprehensive LAB 08/29/24 Verified Metabolic Panel 04:00 Complete Blood Count LAB 08/29/24 Verified 04:00 PTPTT LAB 08/29/24 Verified 04:00 Date of Service: Aug 28, 2024 Billing Provider: TAY HUYNH NP Common Visit Codes: [id number] INP/OBS CARE(HIGH) TAY HUYNH NP Aug 28, 2024 12:04
[2024-08-29] VITALS (8 sets, daily range): BP systolic 104–111; BP diastolic 50–67; PULSE 77–87; RESP 18–19; TEMP 97.1–98.2; O2SAT 90–95
[2024-08-29 08:12] LABS: Basophils # (auto) 0 10 ^3/uL (0-0.2); Basophils % (auto) 0.3 % (0.0-2.0); Eosinophils # (auto) 0 10 ^3/uL (0-0.8); Eosinophils % (auto) 0.6 % (0.0-7.0); Hematocrit 26.1 % (36.0-46.0); Hemoglobin 8.9 g/dL (12.2-16.2); Lymphocytes # (auto) 0.3 10 ^3/uL (0.4-5.4); Lymphocytes % (auto) 6.3 % (10.0-50.0); Mean Corpuscular Hemoglobin 30.1 pg (28.0-32.0); Mean Corpuscular Hgb Conc. 33.9 g/dL (32.0-36.0); Mean Corpuscular Volume 88.7 fL (80.0-100.0); Monocytes # (auto) 0.4 10 ^3/uL (0-1.3); Monocytes % (auto) 6.9 % (0.0-12.0); Neutrophils # (auto) 4.4 10 ^3/uL (1.6-8.6); Neutrophils % (auto) 85.9 % (37.0-80.0); Nucleated Red Blood Cells % 0.1 %; Platelet Count (auto) 277 10^3/uL (140-450); Red Blood Cells 2.95 10^6/uL (4.0-5.20); Red Cell Distribution Width 17.7 % (11.8-14.3); White Blood Cell 5.1 10^3/uL (4.4-10.8)
[2024-08-29 08:27] LABS: INR 1.24 (0.9-1.15); Partial Thromboplastin Time 34.8 SEC (24.5-34.5); Prothrombin Time 12.9 sec (9.3-11.8)
[2024-08-29 08:32] LABS: Alanine Aminotransferase 27 U/L (7-40); Anion Gap 6 (5-15); BUN/Creatinine Ratio 31.6 (10.0-20.0); Blood Urea Nitrogen 12 mg/dL (9-23); Calcium 8.9 mg/dL (8.7-10.4); Carbon Dioxide 28 mmol/L (20-31); Glucose 83 mg/dL (74-106); Potassium 3.7 mmol/L (3.5-5.1)
[2024-08-29 08:39] LABS: Albumin 2.3 g/dL (3.2-4.8); Alkaline Phosphatase 361 U/L (46-116); Aspartate Aminotransferase 45 U/L (13-40); Bilirubin, Total 1.6 mg/dL (0.2-1.0); Chloride 95 mmol/L (98-107); Sodium 129 mmol/L (136-145); Total Protein 5.6 g/dL (5.7-8.2)
--- NOTE | 2024-08-29 10:53 | DVHPN2 ---
Progress Note Date Seen: Aug 29, 2024 Medical Necessity Reason Pt with a Central, PICC or Fol: Yes The following are medically ne: Shaw Catheter Objective vital signs Vital Sign Date Time Temp Pulse Resp B/P (MAP) Pulse Ox O2 Delivery O2 Flow Rate FiO2 08/29/24 09:18 107/60 08/29/24 06:18 83 08/29/24 05:46 98.2 18 92 98.2 08/28/24 20:00 Room Air* 0 21 Total Intake and Output 08/28/24 08/28/24 08/29/24 15:00 23:00 07:00 Intake Total 1425 ml 150 ml Output Total 150 ml 200 ml Balance 1275 ml -50 ml medications Current Medications Medications Dose Ordered Sig/Lachelle Route Start Time Stop Time Status Last Admin Dose Admin Ceftriaxone Sodium 50 ml @ 100 mls/hr DAILY@09 IV 08/13/24 09:00 08/29/24 09:13 100 MLS/HR Ondansetron HCl 4 mg Q4HP PRN IV 08/13/24 00:15 08/27/24 18:37 4 MG Nitroglycerin 0.4 mg Q5MINP PRN SL 08/13/24 00:15 Morphine Sulfate 2 mg Q30M PRN IV 08/13/24 00:15 Apixaban 5 mg BID PO 08/13/24 10:00 08/29/24 09:16 5 MG Levothyroxine Sodium 75 mcg QAM@0600 PO 08/14/24 06:00 08/29/24 06:17 75 MCG Polyethylene Glycol 17 gm DAILYPRN PRN PO 08/13/24 12:15 08/23/24 19:14 17 GM Pantoprazole Sodium 40 mg BID@0700,1700 PO 08/15/24 17:00 08/29/24 06:17 40 MG Propranolol HCl 20 mg TID PO 08/17/24 14:00 08/29/24 06:18 20 MG Lidocaine 1 patch DAILY TOP 08/22/24 10:00 08/29/24 09:18 1 PATCH Furosemide 40 mg DAILY PO 08/25/24 10:00 08/29/24 09:18 40 MG Sodium Chloride 1 gm BID PO 08/25/24 10:45 08/29/24 09:17 1 GM Oxycodone HCl 5 mg Q4HP PRN PO 08/25/24 11:45 08/26/24 20:15 5 MG Morphine Sulfate 15 mg Q12HR PO 08/26/24 22:00 08/29/24 09:15 15 MG Examination: GENERAL:Abnormal, CVS:Normal, ABDOMEN:Abnormal laboratory and microbiology Laboratory Tests 08/29/24 07:21 Test 08/29/24 07:21 Range/Units Serum Glucose 83 74-106 mg/dL Microbiology Date/Time Source Procedure Growth Status 08/12/24 18:36 Blood Blood Culture - Final NO GROWTH AFTER 5 DAYS OF INCUBATION. Complete Problem List/Assessment/Plan Problem List/Assessment/Plan Hyponatremia due to excess H2O Hepatic encephalopathy Liver cirrhosis Hepatocellular carcinoma Hypoalbuminemia Normal kidney function Anemia due To blood loss GI bleeding lasix 40mg po daily-> increase to BID outpatient if noted swelling, strict water restriction, oral sodium tabs. continue this regime outpatient strict I/O fluid restrict 1L strict Lactulose GI Plan discussed with: Patient Dietary Evaluation Review Comments: 1) Continue current plan of care 2) Consider 2gm Na diet if ammonia is WNL 3) Ensure enlive 240ml BID Expected Outcomes/Goals: Pt will meet 75% estimated needs Fu 3-5 days IAN RAO MD Aug 29, 2024 10:53
--- NOTE | 2024-08-29 12:37 | DVHPN2 ---
Subjective The patient is seen and examined at bedside. Still complain of shortness for breath Reviewed: Care Plan, H&P, Labs, Medications Changes from previous H/P or p: No Changes General: Per HPI Objective Vitals Vital Signs Date Time Temp Pulse Resp B/P (MAP) Pulse Ox O2 Delivery O2 Flow Rate FiO2 08/29/24 09:18 107/60 08/29/24 08:00 80 18 90 Room Air* 0 21 08/29/24 05:46 98.2 98.2 Intake/Output Intake and Output 08/29/24 07:00 Intake Total 1575 ml Output Total 350 ml Balance 1225 ml Intake Oral 850 ml Tube Feeding 725 ml Output Urine Total 350 ml General Appearance: Alert, Oriented X3, Cooperative, mild distress HEENT: Atraumatic, PERRLA Lungs: Clear to auscultation, Normal air movement Cardiovascular: Normal S1, Normal S2, Other (Sinus tachycardia) Abdomen: Normal bowel sounds, Other (Distended abdomen,? Ascites) Musculoskeletal: Normal sensory function, Normal motor function Neuro: Normal gait, Normal speech, Cranial nerves 3-12 NL Skin: Dry, Intact Psych/Mental Status: Mental status NL, Mood NL Medications Current Medications Medications Dose Ordered Sig/Lachelle Route Start Time Stop Time Status Last Admin Dose Admin Ceftriaxone Sodium 50 ml @ 100 mls/hr DAILY@09 IV 08/13/24 09:00 08/29/24 09:13 100 MLS/HR Ondansetron HCl 4 mg Q4HP PRN IV 08/13/24 00:15 08/27/24 18:37 4 MG Nitroglycerin 0.4 mg Q5MINP PRN SL 08/13/24 00:15 Morphine Sulfate 2 mg Q30M PRN IV 08/13/24 00:15 Apixaban 5 mg BID PO 08/13/24 10:00 08/29/24 09:16 5 MG Levothyroxine Sodium 75 mcg QAM@0600 PO 08/14/24 06:00 08/29/24 06:17 75 MCG Polyethylene Glycol 17 gm DAILYPRN PRN PO 08/13/24 12:15 08/23/24 19:14 17 GM Pantoprazole Sodium 40 mg BID@0700,1700 PO 08/15/24 17:00 08/29/24 06:17 40 MG Propranolol HCl 20 mg TID PO 08/17/24 14:00 08/29/24 06:18 20 MG Lidocaine 1 patch DAILY TOP 08/22/24 10:00 08/29/24 09:18 1 PATCH Furosemide 40 mg DAILY PO 08/25/24 10:00 08/29/24 09:18 40 MG Sodium Chloride 1 gm BID PO 08/25/24 10:45 08/29/24 09:17 1 GM Oxycodone HCl 5 mg Q4HP PRN PO 08/25/24 11:45 08/26/24 20:15 5 MG Morphine Sulfate 15 mg Q12HR PO 08/26/24 22:00 08/29/24 09:15 15 MG Laboratory Results Laboratory Tests 08/29/24 07:21 Chemistry Test 08/29/24 07:21 Albumin 2.3 g/dL (3.2-4.8) L Calcium Level 8.9 mg/dL (8.7-10.4) Total Protein 5.6 g/dL (5.7-8.2) L Coagulation Test 08/29/24 07:21 Prothrombin Time 12.9 sec (9.3-11.8) H Prothrombin Time INR 1.24 (0.9-1.15) H Activated Partial Thromboplast Time 34.8 SEC (24.5-34.5) H LFT Test 08/29/24 07:21 Alanine Aminotransferase (ALT) 27 U/L (7-40) Alkaline Phosphatase 361 U/L (46-116) H Aspartate Amino Transferase (AST) 45 U/L (13-40) H Total Bilirubin 1.6 mg/dL (0.2-1.0) H Urinalysis Test 08/12/24 18:58 08/14/24 17:40 08/26/24 04:35 Urine Mucus Few (None Seen) Urine Color Yellow (Yellow) Urine Clarity Clear (Clear) Urine pH 6.0 (5.0-9.0) Urine Specific [place] 1.016 (1.001-1.035) Urine Protein Trace (Negative) H Urine Ketones Negative (Negative) Urine Blood 2+ /uL (Negative) H Urine Nitrite Negative (Negative) Urine Bilirubin 1+ (Negative) H Urine Urobilinogen 8 mg/dL (Negative) H Urine Leukocyte Esterase 1+ /uL (Negative) Urine RBC 71 /hpf (0 - 4) Urine Microscopic WBC 28 /HPF (0-5) H Urine Squamous Epithelial Cells None seen /hpf (<5) Urine Bacteria None seen /hpf (None Seen) Urine Creatinine 32.90 mg/dL (30.0-125.0) Urine Protein/Creatinine Ratio 1.02 Urine Sodium 11 mmol/L (40-220) L Urine Glucose Normal mg/dL (Normal) Urine Total Protein 33.6 mg/dL (1-14) H Urine Osmolality 325 mOsm/kg Microbiology Microbiology Date/Time Source Procedure Growth Status 08/12/24 18:36 Blood Blood Culture - Final NO GROWTH AFTER 5 DAYS OF INCUBATION. Complete Labs and/or images reviewed: Labs reviewed by me Assessment/Plan Assessment/Plan -acute on chronic hypoxic respiratory failure -hepatic carcinoma with chemotherapy , metastatic disease -constipation -atelectasis -hypothyroidism -primary hypertension -dehydration with azotemia -probable community-acquired pneumonia Gram-positive/Gram-negative etiology -hyponatremia -Lumbar spinal stenosis -fragility fracture of pubis ramus Plan: -Continue current management -Continue pain management: MS Contin 15 mg b.i.d., oxycodone 5 mg q.4 for breakthrough pain, lidocaine patch to lower back -nephrology consultation: Recommendations reviewed -Continue incentive spirometer -continue IV antibiotics Rocephin -continue propranolol -social service consultation for DC planning to alf facility for rehab. Still waiting for alf home facility placement . This medical document was created using an electronic medical record system with [employer] direct computerized dictation system. Although this document has been carefully reviewed, there may still be some phonetic and typographical errors. These areas are purely typographical due to imperfections of the software programs, and do not reflect any compromise in the patient's medical care. Plan discussed with: Patient Date of Service: Aug 29, 2024 Billing Provider: REYES RIVERA MD Common Visit Codes: [id number] INP/OBS CARE(HIGH) REYES RIVERA MD Aug 29, 2024 12:37
[2024-08-30 01:00] VITALS: BP 111/56; PULSE 92; RESP 18; TEMP 98.4; O2SAT 93
[2024-08-30 05:00] VITALS: BP 104/51; PULSE 91; RESP 18; TEMP 97.9; O2SAT 96
[2024-08-30 09:00] VITALS: BP 104/54; PULSE 82; RESP 18; TEMP 97.5; O2SAT 97
--- NOTE | 2024-08-30 09:18 | DVHPN2 ---
Progress Note Date Seen: Aug 30, 2024 Medical Necessity Reason Pt with a Central, PICC or Fol: Yes The following are medically ne: Shaw Catheter Subjective Review of Systems: HEENT:Normal Objective vital signs Vital Sign Date Time Temp Pulse Resp B/P (MAP) Pulse Ox O2 Delivery O2 Flow Rate FiO2 08/30/24 06:15 91 104/51 08/30/24 05:00 97.9 18 96 97.9 08/29/24 20:00 Room Air* 0 21 Total Intake and Output 08/29/24 08/29/24 08/30/24 15:00 23:00 07:00 Intake Total 150 ml 340 ml 340 ml Output Total 350 ml 500 ml Balance 150 ml -10 ml -160 ml medications Current Medications Medications Dose Ordered Sig/Lachelle Route Start Time Stop Time Status Last Admin Dose Admin Ceftriaxone Sodium 50 ml @ 100 mls/hr DAILY@09 IV 08/13/24 09:00 08/29/24 09:13 100 MLS/HR Ondansetron HCl 4 mg Q4HP PRN IV 08/13/24 00:15 08/27/24 18:37 4 MG Nitroglycerin 0.4 mg Q5MINP PRN SL 08/13/24 00:15 Morphine Sulfate 2 mg Q30M PRN IV 08/13/24 00:15 Apixaban 5 mg BID PO 08/13/24 10:00 08/29/24 21:39 5 MG Levothyroxine Sodium 75 mcg QAM@0600 PO 08/14/24 06:00 08/30/24 06:15 75 MCG Polyethylene Glycol 17 gm DAILYPRN PRN PO 08/13/24 12:15 08/23/24 19:14 17 GM Pantoprazole Sodium 40 mg BID@0700,1700 PO 08/15/24 17:00 08/30/24 06:16 40 MG Propranolol HCl 20 mg TID PO 08/17/24 14:00 08/30/24 06:15 20 MG Lidocaine 1 patch DAILY TOP 08/22/24 10:00 08/29/24 09:18 1 PATCH Furosemide 40 mg DAILY PO 08/25/24 10:00 08/29/24 09:18 40 MG Sodium Chloride 1 gm BID PO 08/25/24 10:45 08/29/24 21:38 1 GM Oxycodone HCl 5 mg Q4HP PRN PO 08/25/24 11:45 08/26/24 20:15 5 MG Morphine Sulfate 15 mg Q12HR PO 08/26/24 22:00 08/29/24 21:37 15 MG Examination: GENERAL:Normal, CVS:Normal, SKIN:Normal laboratory and microbiology Laboratory Tests 08/29/24 07:21 Test 08/29/24 07:21 Range/Units Serum Glucose 83 74-106 mg/dL Microbiology Date/Time Source Procedure Growth Status 08/12/24 18:36 Blood Blood Culture - Final NO GROWTH AFTER 5 DAYS OF INCUBATION. Complete Problem List/Assessment/Plan Problem List/Assessment/Plan Hyponatremia due to excess H2O Hepatic encephalopathy Liver cirrhosis Hepatocellular carcinoma Hypoalbuminemia Normal kidney function Anemia due To blood loss GI bleeding lasix 40mg po daily-> increase to BID outpatient if noted swelling, strict water restriction, oral sodium tabs. continue this regime outpatient strict I/O fluid restrict 1L strict Lactulose GI Plan discussed with: Patient Dietary Evaluation Review Comments: 1) Continue current plan of care 2) Consider 2gm Na diet if ammonia is WNL 3) Ensure enlive 240ml BID Expected Outcomes/Goals: Pt will meet 75% estimated needs Fu 3-5 days IAN RAO MD Aug 30, 2024 09:18
[2024-08-30 10:44] VITALS: BP 94/42; PULSE 91
--- NOTE | 2024-08-30 13:23 | DVHPN2 ---
Subjective The patient is seen and examined at bedside. Waiting for bed available in SNF. Reviewed: Care Plan, H&P, Labs, Medications Changes from previous H/P or p: No Changes General: Per HPI Objective Vitals Vital Signs Date Time Temp Pulse Resp B/P (MAP) Pulse Ox O2 Delivery O2 Flow Rate FiO2 08/30/24 10:44 91 08/30/24 09:16 94/42 08/30/24 09:00 97.5 18 97 97.5 08/30/24 08:00 Room Air* 0 21 Intake/Output Intake and Output 08/30/24 07:00 Intake Total 830 ml Output Total 850 ml Balance -20 ml Intake Oral 780 ml IV Total 50 ml Output Urine Total 850 ml # Bowel Movements 1 General Appearance: Alert, Oriented X3, Cooperative, mild distress HEENT: Atraumatic, PERRLA Lungs: Clear to auscultation, Normal air movement Cardiovascular: Normal S1, Normal S2, Other (Sinus tachycardia) Abdomen: Normal bowel sounds, Other (Distended abdomen,? Ascites) Musculoskeletal: Normal sensory function, Normal motor function Neuro: Normal gait, Normal speech, Cranial nerves 3-12 NL Skin: Dry, Intact Psych/Mental Status: Mental status NL, Mood NL Medications Current Medications Medications Dose Ordered Sig/Lachelle Route Start Time Stop Time Status Last Admin Dose Admin Ceftriaxone Sodium 50 ml @ 100 mls/hr DAILY@09 IV 08/13/24 09:00 08/30/24 09:14 100 MLS/HR Ondansetron HCl 4 mg Q4HP PRN IV 08/13/24 00:15 08/27/24 18:37 4 MG Nitroglycerin 0.4 mg Q5MINP PRN SL 08/13/24 00:15 Morphine Sulfate 2 mg Q30M PRN IV 08/13/24 00:15 Apixaban 5 mg BID PO 08/13/24 10:00 08/30/24 09:15 5 MG Levothyroxine Sodium 75 mcg QAM@0600 PO 08/14/24 06:00 08/30/24 06:15 75 MCG Polyethylene Glycol 17 gm DAILYPRN PRN PO 08/13/24 12:15 08/23/24 19:14 17 GM Pantoprazole Sodium 40 mg BID@0700,1700 PO 08/15/24 17:00 08/30/24 06:16 40 MG Propranolol HCl 20 mg TID PO 08/17/24 14:00 08/30/24 06:15 20 MG Lidocaine 1 patch DAILY TOP 08/22/24 10:00 08/30/24 09:14 1 PATCH Furosemide 40 mg DAILY PO 08/25/24 10:00 08/29/24 09:18 40 MG Sodium Chloride 1 gm BID PO 08/25/24 10:45 08/30/24 09:15 1 GM Oxycodone HCl 5 mg Q4HP PRN PO 08/25/24 11:45 08/26/24 20:15 5 MG Morphine Sulfate 15 mg Q12HR PO 08/26/24 22:00 08/29/24 21:37 15 MG Laboratory Results Laboratory Tests 08/29/24 07:21 Urinalysis Test 08/12/24 18:58 08/14/24 17:40 08/26/24 04:35 Urine Mucus Few (None Seen) Urine Color Yellow (Yellow) Urine Clarity Clear (Clear) Urine pH 6.0 (5.0-9.0) Urine Specific [place] 1.016 (1.001-1.035) Urine Protein Trace (Negative) H Urine Ketones Negative (Negative) Urine Blood 2+ /uL (Negative) H Urine Nitrite Negative (Negative) Urine Bilirubin 1+ (Negative) H Urine Urobilinogen 8 mg/dL (Negative) H Urine Leukocyte Esterase 1+ /uL (Negative) Urine RBC 71 /hpf (0 - 4) Urine Microscopic WBC 28 /HPF (0-5) H Urine Squamous Epithelial Cells None seen /hpf (<5) Urine Bacteria None seen /hpf (None Seen) Urine Creatinine 32.90 mg/dL (30.0-125.0) Urine Protein/Creatinine Ratio 1.02 Urine Sodium 11 mmol/L (40-220) L Urine Glucose Normal mg/dL (Normal) Urine Total Protein 33.6 mg/dL (1-14) H Urine Osmolality 325 mOsm/kg Microbiology Microbiology Date/Time Source Procedure Growth Status 08/12/24 18:36 Blood Blood Culture - Final NO GROWTH AFTER 5 DAYS OF INCUBATION. Complete Labs and/or images reviewed: Labs reviewed by me Assessment/Plan Assessment/Plan -acute on chronic hypoxic respiratory failure -hepatic carcinoma with chemotherapy , metastatic disease -constipation -atelectasis -hypothyroidism -primary hypertension -dehydration with azotemia -probable community-acquired pneumonia Gram-positive/Gram-negative etiology -hyponatremia -Lumbar spinal stenosis -fragility fracture of pubis ramus Plan: -Continue current management -Continue pain management: MS Contin 15 mg b.i.d., oxycodone 5 mg q.4 for breakthrough pain, lidocaine patch to lower back -nephrology consultation: Recommendations reviewed -Continue incentive spirometer -continue IV antibiotics Rocephin -continue propranolol -social service consultation for DC planning to [facility] facility for rehab. SNF available today. Will transfer patient. . This medical document was created using an electronic medical record system with [employer] direct computerized dictation system. Although this document has been carefully reviewed, there may still be some phonetic and typographical errors. These areas are purely typographical due to imperfections of the software programs, and do not reflect any compromise in the patient's medical care. Plan discussed with: Patient Date of Service: Aug 30, 2024 Billing Provider: REYES RIVERA MD Common Visit Codes: [id number] INP/OBS CARE(HIGH) REYES RIVERA MD Aug 30, 2024 13:23
== END 2024-08-30 12:57 | DRG 871 ==
LOC: ER 17:22 → OVERFLOW 23:59 → EAST 08-13 05:09 → TELE-EAST 08-18 10:27 → EAST 08-28 04:08
PROVIDERS: ADMIT Nurse Practitioner Acute Care; ATTEND Nurse Practitioner Acute Care
DX: A41.9 Sepsis, unspecified organism (principal); G93.41 Metabolic encephalopathy; J15.69 Pneumonia due to other Gram-negative bacteria; J96.21 Acute and chronic respiratory failure with hypoxia; J15.9 Unspecified bacterial pneumonia; S32.592A Other specified fracture of left pubis, initial encounter for closed fracture; S32.19XA Other fracture of sacrum, initial encounter for closed fracture; C22.0 Liver cell carcinoma; D68.9 Coagulation defect, unspecified; E87.1 Hypo-osmolality and hyponatremia; K92.2 Gastrointestinal hemorrhage, unspecified; R18.8 Other ascites; E72.20 Disorder of urea cycle metabolism, unspecified; J98.11 Atelectasis; Z20.822 Contact with and (suspected) exposure to COVID-19; R74.01 Elevation of levels of liver transaminase levels; E86.0 Dehydration; E03.9 Hypothyroidism, unspecified; I10 Essential (primary) hypertension; K59.00 Constipation, unspecified; E87.5 Hyperkalemia; D50.0 Iron deficiency anemia secondary to blood loss (chronic); E88.09 Other disorders of plasma-protein metabolism, not elsewhere classified; K74.60 Unspecified cirrhosis of liver; K76.82 Hepatic encephalopathy; M48.061 Spinal stenosis, lumbar region without neurogenic claudication; E27.8 Other specified disorders of adrenal gland; M47.816 Spondylosis without myelopathy or radiculopathy, lumbar region; Z79.2 Long term (current) use of antibiotics; Z98.51 Tubal ligation status; Z79.01 Long term (current) use of anticoagulants; Z83.3 Family history of diabetes mellitus; Z79.899 Other long term (current) drug therapy; X58.XXXA Exposure to other specified factors, initial encounter; Y93.89 Activity, other specified; Y92.89 Other specified places as the place of occurrence of the external cause; Y99.8 Other external cause status
CPT/HCPCS: 36415; 70450; 71045; 72131; 73630; 74176; 80048; 80053; 81001; 82140; 82270; 82306; 82378; 82570; 82962; 83605; 83690; 83735; 83880; 83935; 84100; 84156; 84300; 84443; 84484; 84550; 85025; 85610; 85730; 86803; 86850; 86900; 86901; 87040; 87340; 87426; 87804; 93005; 96365; 97110; 97116; 97163; 97530; 99291; G0378; J2405; P9047

== ENCOUNTER 2024-10-29 13:39 | Outpatient (CLI) | payer MEDICAID ==
[~2024-10-29 13:39] MED LIST changes: -CEFD300C2 PO; -LOPETAB OR; -PROP60CA34 PO
[2024-10-29 14:06] LABS: Basophils # (auto) 0 10 ^3/uL (0-0.2); Basophils % (auto) 0.4 % (0.0-2.0); Eosinophils # (auto) 0.1 10 ^3/uL (0-0.8); Eosinophils % (auto) 1.4 % (0.0-7.0); Hemoglobin 10.3 g/dL (12.2-16.2); Lymphocytes # (auto) 0.5 10 ^3/uL (0.4-5.4); Mean Corpuscular Hemoglobin 29.7 pg (28.0-32.0); Mean Corpuscular Hgb Conc. 34.4 g/dL (32.0-36.0); Mean Corpuscular Volume 86.4 fL (80.0-100.0); Monocytes # (auto) 0.3 10 ^3/uL (0-1.3); Monocytes % (auto) 6.8 % (0.0-12.0); Neutrophils # (auto) 2.9 10 ^3/uL (1.6-8.6); Neutrophils % (auto) 78.4 % (37.0-80.0); Nucleated Red Blood Cells % 0.1 %; Platelet Count (auto) 324 10^3/uL (140-450); Red Blood Cells 3.47 10^6/uL (4.0-5.20); Red Cell Distribution Width 15.2 % (11.8-14.3); White Blood Cell 3.8 10^3/uL (4.4-10.8)
[2024-10-29 14:25] LABS: Alanine Aminotransferase 10 U/L (7-40); Albumin 3.4 g/dL (3.2-4.8); Alkaline Phosphatase 195 U/L (46-116); Anion Gap 8 (5-15); Aspartate Aminotransferase 40 U/L (<34); BUN/Creatinine Ratio 24.1 (10.0-20.0); Blood Urea Nitrogen 14 mg/dL (9-23); Calcium 9.9 mg/dL (8.7-10.4); Carbon Dioxide 27 mmol/L (20-31); Chloride 104 mmol/L (98-107); Glucose 125 mg/dL (74-106); Potassium 4.2 mmol/L (3.5-5.1); Sodium 139 mmol/L (136-145); Total Protein 7.2 g/dL (5.7-8.2)
[2024-10-29 14:52] LABS: Erythrocyte Sedimentation Rate 91 mm/hr (0-20)
== END 2024-10-29 17:00 | disposition home or self-care (01) ==
LOC: LAB 13:39
PROVIDERS: ATTEND Internal Medicine Rheumatology
DX: M05.79 Rheumatoid arthritis with rheumatoid factor of multiple sites without organ or systems involvement (principal); K74.69 Other cirrhosis of liver; Z79.899 Other long term (current) drug therapy
CPT/HCPCS: 36415; 80053; 85025; 85652; 86141

== ENCOUNTER 2025-02-08 08:42 | Outpatient (CLI) | payer MEDICAID ==
[2025-02-08 09:14] LABS: Hematocrit 32.7 % (36.0-46.0); Hemoglobin 10.9 g/dL (12.2-16.2); Mean Corpuscular Hemoglobin 27.1 pg (28.0-32.0); Mean Corpuscular Volume 81.2 fL (80.0-100.0); Nucleated Red Blood Cells % 0.1 %
[2025-02-08 09:39] LABS: Albumin 3.5 g/dL (3.2-4.8); Anion Gap 10 (5-15); BUN/Creatinine Ratio 23.6 (10.0-20.0); Blood Urea Nitrogen 13 mg/dL (9-23); Calcium 9.5 mg/dL (8.7-10.4); Carbon Dioxide 28 mmol/L (20-31); Chloride 101 mmol/L (98-107); Glucose 80 mg/dL (74-106); Potassium 3.8 mmol/L (3.5-5.1); Sodium 139 mmol/L (136-145); Total Protein 7.4 g/dL (5.7-8.2)
[2025-02-08 09:42] LABS: Alanine Aminotransferase 43 U/L (7-40); Alkaline Phosphatase 172 U/L (46-116); Bilirubin, Total 1.4 mg/dL (0.2-1.0)
== END 2025-02-08 17:00 | disposition home or self-care (01) ==
LOC: LAB 08:42
PROVIDERS: ATTEND Internal Medicine
DX: C22.0 Liver cell carcinoma (principal); I10 Essential (primary) hypertension; D72.819 Decreased white blood cell count, unspecified; D75.839 Thrombocytosis, unspecified; E87.1 Hypo-osmolality and hyponatremia; R79.89 Other specified abnormal findings of blood chemistry
CPT/HCPCS: 36415; 80053; 84439; 84443; 85025

== ENCOUNTER → 2025-02-22 | Outpatient (CLI) | payer MEDICAID ==
[2025-02-22 14:04] LABS: Hematocrit 30.7 % (36.0-46.0); Hemoglobin 10.3 g/dL (12.2-16.2); Mean Corpuscular Hemoglobin 27.2 pg (28.0-32.0); Mean Corpuscular Volume 81.5 fL (80.0-100.0); Nucleated Red Blood Cells % 0.0 %
[2025-02-22 14:34] LABS: Alanine Aminotransferase 40 U/L (7-40); Albumin 3.3 g/dL (3.2-4.8); Anion Gap 9 (5-15); BUN/Creatinine Ratio 22.2 (10.0-20.0); Bilirubin, Total 1.1 mg/dL (0.2-1.0); Blood Urea Nitrogen 16 mg/dL (9-23); Calcium 8.9 mg/dL (8.7-10.4); Carbon Dioxide 26 mmol/L (20-31); Chloride 103 mmol/L (98-107); Potassium 4.1 mmol/L (3.5-5.1); Sodium 138 mmol/L (136-145); Total Protein 6.9 g/dL (5.7-8.2)
[2025-02-22 14:35] LABS: Alkaline Phosphatase 198 U/L (46-116); Glucose 152 mg/dL (74-106)
[2025-02-22 14:38] LABS: Free T4 (Free Thyroxine) 1.36 ng/dL (0.89-1.76)
[2025-02-22 14:49] LABS: Free T3 3.4 pg/mL (2.3-4.2)
[2025-02-22 15:39] LABS: Urine Protein, UAD Negative (Negative)
== END | disposition home or self-care (01) ==
LOC: LAB 13:36
PROVIDERS: ATTEND Internal Medicine Rheumatology
DX: I10 Essential (primary) hypertension (principal); R79.89 Other specified abnormal findings of blood chemistry; R82.90 Unspecified abnormal findings in urine
CPT/HCPCS: 36415; 80053; 81001; 84439; 84481; 85025; 85652; 86141

== ENCOUNTER 2025-03-02 11:50 | Outpatient (CLI) | payer MEDICAID | END 2025-03-02 17:00 | disposition home or self-care (01) | LOC: LAB 11:50 | PROVIDERS: ATTEND Internal Medicine | DX: N39.0 Urinary tract infection, site not specified (principal) | CPT/HCPCS: 87086 ==